=== PATIENT | male | born 1940 | race Caucasian/White ===

== ENCOUNTER → 2020-11-10 10:32 | Outpatient (BNVA) | payer MEDICARE, SELFPAY | PROVIDERS: PCP Nurse Practitioner Family; Visit Provider Urology | DX: N40.1 Benign prostatic hyperplasia with lower urinary tract symptoms (principal); R35.1 Nocturia; R33.9 Retention of urine, unspecified | CPT/HCPCS: 51798; 81002; 99212 ==

== ENCOUNTER 2020-12-24 07:22 | Outpatient (REF) | payer MEDICARE, SELFPAY ==
[2020-12-24 09:12] LABS: Alanine Aminotransferase 24 U/L (0-40); Albumin Level 4.2 g/dL (3.5-5.0); Alkaline Phosphatase 60 U/L (39-117); Anion Gap 11 (12-20); Aspartate Amino Transferase 22 U/L (5-37); Bilirubin Total 0.4 mg/dL (0.0-1.0); Blood Urea Nitrogen 41 mg/dL (9-16); Calcium 8.9 mg/dL (8.4-10.2); Carbon Dioxide 22 mmol/L (22-29); Chloride 111 mmol/L (96-108); Cholesterol 155 mg/dL; Estimated Glomerular Filt Rate 49; Glucose Fasting 105 mg/dL (60-99); HDL Cholesterol 36 mg/dL; LDL Cholesterol Calculated 102 mg/dl; Potassium 5.6 mmol/L (3.3-5.1); Sodium 138 mmol/L (135-145); Total Protein 7.1 g/dL (6.5-8.0); Triglycerides 86 mg/dL
[2020-12-24 09:16] LABS: Creatinine Urine 20.72 mg/dL; Microalbum/Creatinine Ratio Ur 120.6 ug/mg cr
[2020-12-24 09:22] LABS: Estimated Average Glucose 123 mg/dL; Hemoglobin A1c % 5.9 %
[2020-12-24 09:25] LABS: Ferritin 539 ng/mL (20-250); TSH reflex Free T4 2.49 uIU/mL (0.32-4.0)
== END 2020-12-24 07:23 | disposition home or self-care (01) ==
LOC: HO.LAB 07:22
PROVIDERS: PCP Nurse Practitioner Family; Visit Provider Nurse Practitioner Family
DX: I10 Essential (primary) hypertension (principal); R79.89 Other specified abnormal findings of blood chemistry; E11.9 Type 2 diabetes mellitus without complications
CPT/HCPCS: 36415; 80053; 80061; 82043; 82728; 83036; 84443

== ENCOUNTER 2020-12-28 09:19 | Outpatient (REF) | payer MEDICARE, SELFPAY ==
[2020-12-28 12:09] LABS: Anion Gap 13 (12-20); Carbon Dioxide 21 mmol/L (22-29); Chloride 109 mmol/L (96-108); Potassium 5.6 mmol/L (3.3-5.1); Sodium 137 mmol/L (135-145)
[2020-12-28 12:14] LABS: Ferritin 618 ng/mL (20-250)
== END 2020-12-28 09:20 | disposition home or self-care (01) ==
LOC: HO.HMGCLDS 09:19
PROVIDERS: PCP Nurse Practitioner Family; Visit Provider Nurse Practitioner Family
DX: R79.89 Other specified abnormal findings of blood chemistry (principal); E87.5 Hyperkalemia
CPT/HCPCS: 36415; 80051; 81256; 82728

== ENCOUNTER 2020-12-31 07:58 | Outpatient (REF) | payer MEDICARE, SELFPAY ==
[2020-12-31 11:44] LABS: Anion Gap 15 (12-20); Carbon Dioxide 21 mmol/L (22-29); Chloride 109 mmol/L (96-108); Potassium 4.3 mmol/L (3.3-5.1); Sodium 141 mmol/L (135-145)
== END 2020-12-31 07:59 | disposition home or self-care (01) ==
LOC: HO.HMGCLDS 07:58
PROVIDERS: PCP Nurse Practitioner Family; Visit Provider Nurse Practitioner Family
DX: E87.5 Hyperkalemia (principal)
CPT/HCPCS: 36415; 80051

== ENCOUNTER 2021-06-19 07:14 | Outpatient (REF) | payer MEDICARE, SELFPAY ==
[2021-06-19 08:00] LABS: Estimated Average Glucose 114 mg/dL; Hemoglobin A1c % 5.6 %
[2021-06-19 08:27] LABS: TSH reflex Free T4 2.84 uIU/mL (0.32-4.0)
[2021-06-19 08:29] LABS: Appearance Urine CLEAR; Color Urine YELLOW; Glucose Urine UA NEG (NEG); Leukocyte Esterase Urine 1+ (NEG); Nitrite Urine NEG (NEG); Specific Gravity - Urine <= 1.005 (1.005-1.025); UACC Culture Trigger YES; Urine Blood NEG (NEG); Urine Ketones NEG (NEG); Urine Protein NEG (NEG-TRACE)
[2021-06-19 08:41] LABS: Microalbum/Creatinine Ratio Ur 158.6 ug/mg cr
[2021-06-19 08:42] LABS: RBC Urine 0 /HPF (0); Squamous Epithelial Cell Urine TRACE /LPF
[2021-06-19 08:58] LABS: Alanine Aminotransferase 19 U/L (0-40); Albumin Level 4.3 g/dL (3.5-5.0); Alkaline Phosphatase 63 U/L (39-117); Anion Gap 10 (12-20); Aspartate Amino Transferase 21 U/L (5-37); Bilirubin Total 0.5 mg/dL (0.0-1.0); Blood Urea Nitrogen 26 mg/dL (9-16); Calcium 9.1 mg/dL (8.4-10.2); Carbon Dioxide 26 mmol/L (22-29); Chloride 110 mmol/L (96-108); Cholesterol 151 mg/dL; Estimated Glomerular Filt Rate 49; Glucose Fasting 110 mg/dL (60-99); HDL Cholesterol 37 mg/dL; LDL Cholesterol Calculated 97 mg/dl; Potassium 6.1 mmol/L (3.3-5.1); Sodium 140 mmol/L (135-145); Triglycerides 85 mg/dL
== END 2021-06-19 07:15 | disposition home or self-care (01) ==
LOC: HO.LAB 07:14
PROVIDERS: PCP Nurse Practitioner Family; Visit Provider Nurse Practitioner Family
DX: E11.9 Type 2 diabetes mellitus without complications (principal)
CPT/HCPCS: 36415; 80053; 80061; 81001; 82043; 83036; 84443; 87086

== ENCOUNTER 2021-06-23 06:41 | Outpatient (REF) | payer MEDICARE, SELFPAY ==
[2021-06-23 11:23] LABS: Appearance Urine CLEAR; Color Urine ORANGE; Glucose Urine UA NEG (NEG); Leukocyte Esterase Urine 3+ (NEG); Nitrite Urine NEG (NEG); Specific Gravity - Urine <= 1.005 (1.005-1.025); UACC Culture Trigger YES; Urine Blood TRACE (NEG); Urine Ketones NEG (NEG); Urine Protein NEG (NEG-TRACE)
[2021-06-23 11:36] LABS: WBC Urine 30-49 /HPF (0-4)
[2021-06-23 11:37] LABS: Mucus Urine TRACE /LPF; Squamous Epithelial Cell Urine TRACE /LPF
[2021-06-23 12:12] LABS: Anion Gap 11 (12-20); Carbon Dioxide 24 mmol/L (22-29); Chloride 105 mmol/L (96-108); Potassium 4.4 mmol/L (3.3-5.1); Sodium 136 mmol/L (135-145)
== END 2021-06-23 06:42 | disposition home or self-care (01) ==
LOC: HO.HMGCLDS 06:41
PROVIDERS: PCP Nurse Practitioner Family; Visit Provider Nurse Practitioner Family
DX: E87.5 Hyperkalemia (principal)
CPT/HCPCS: 36415; 80051; 81001; 87086

== ENCOUNTER 2021-11-09 07:19 | Outpatient (REF) | payer MEDICARE, SELFPAY ==
[2021-11-09 12:04] LABS: Prostate Specific Antigen 1.26 ng/mL (<0.05-4.0)
== END 2021-11-09 07:20 | disposition home or self-care (01) ==
LOC: HO.HMGCLDS 07:19
PROVIDERS: PCP Nurse Practitioner Family; Visit Provider Urology
DX: Z12.5 Encounter for screening for malignant neoplasm of prostate (principal); N40.1 Benign prostatic hyperplasia with lower urinary tract symptoms; N13.8 Other obstructive and reflux uropathy
CPT/HCPCS: 36415; 84153

== ENCOUNTER 2021-11-11 10:08 | Outpatient (AMB) | payer MEDICARE, SELFPAY ==
--- NOTE | 2021-11-11 10:18 | A.OFFVIS_ITS ---
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 They are a patient of Dr Ray. They are seen in the office today for the following urologic conditions. - lower urinary tract symptoms PVR 129 Good stream On finasteride 3 times a week He can stop doxazosin and see what happens 12 month follow-up Lower Urinary Tract Symptoms: Happy on current medication mix Continue with alpha-vern and 5 AR Review in 12 months Current visit is for further evaluation of, lower urinary tract symptoms, predominate irritative symptoms - doing well on 4mg doxazosin with finasteride - generic 3m $30. Current treatment includes 10/23 , alpha vern, 5-AR. Prostate Symptom Score 10/23 , Moderate (9-19), Bother 3 11/23 , Mild (0-8), Bother 2. Symptoms include 10/23 , incomplete emptying, weak stream, nocturia (>2), intermittency, and are progressing 11/24 less urge, less nocturia. Results from testing include cystoscopy Trilobar hypertrophy 10/24 large prostate median lobe renal/bladder us Yes 07/25 - 80gm prosatate, possible small bladder l esion date 09/25/2018 PVR 80 prostate size 50 Prior Prostate Score unknown. Prostate volume 30-50gm. Associated conditions CAD No CVA No diabetes No elevated PSA No erectile dysfunction No hematuria No renal insufficiency No urge incontinence No urinary retention No urinary tract infection No psychiatric diagnosis No Testing at next visit will include bladder scan. Treatment plan stay on [facility] medications [facility] Medical History Pyuria Incomplete emptying of bladder Benign prostatic hyperplasia with lower urinary tract symptoms Nocturia BPH (benign prostatic hyperplasia) Surgical History History of appendectomy History of back surgery Family History Sister Diabetes Breast cancer Lung cancer Social History Housing: Condominium Patient Tobacco Use Status: Never used Tobacco e-Cigarette/Vaping Use: Never Used service: Yes ([employer] ) Current occupational status: retired Cognitive needs: No Hearing needs: No Vision needs: No Review of Systems Const Denies chills and Denies fever(s) Card Reports no additional complaints and Denies syncope Resp Denies cough GI Denies abdominal pain and Denies heartburn Reports as per HPI and Denies change in libido Neuro Denies syncope Psych Denies change in libido Endo Denies change in libido Physical Exam Const General: cooperative, healthy appearing, comfortable and no acute distress Orientation/consciousness: patient oriented x3 HEENT Face and sinus: Yes normal facial exam Mouth: moist mucous membranes Neck Neck: Yes normal visual inspection, Yes full ROM and Yes trachea midline Chest Chest palpation & inspection: normal inspection of the chest Resp Effort & Inspection: normal respiratory effort, able to speak in complete sentences and no respiratory distress GI Inspection: Yes normal to inspection Back/Spine/Pelvis Cervical Spine: normal cervical lordosis Thoracic/Lumbar Spine: thoracic and lumbar spine normal to inspection Skin General skin exam: no rashes or lesions noted Neuro General: patient oriented x3, gait normal, tone normal and moves all extremities Extrem General: Yes normal to inspection and Yes capillary refill normal Office Procedures Post Void Residual Post Residual Void Post Void Residual (PVR): 129 08615-Fldd Void Residual by ultrasound Results AMB Urinalysis, Automated UA Leukoctes 70 Caro/uL Last Edit by Josemanuel Coats on 11/11/21 10:36 UA Nitrite Negative Last Edit by Josemanuel Coats on 11/11/21 10:36 UA Urobilinogen 0.2 mg/dL Last Edit by Josemanuel Coats on 11/11/21 10:36 UA Protein 15 mg/dL Last Edit by Josemanuel Coats on 11/11/21 10:36 UA pH 6.0 Last Edit by Josemanuel Coats on 11/11/21 10:36 UA Blood 0 Ludwig/uL Last Edit by Josemanuel Coats on 11/11/21 10:36 UA Specific [place] 1.015 Last Edit by Josemanuel Coats on 11/11/21 10:36 UA Ketone Negative Last Edit by Josemanuel Coats on 11/11/21 10:36 UA Bilirubin 0 mg/dL Last Edit by Josemanuel Coats on 11/11/21 10:36 UA Glucose 250 mg/dL Last Edit by Josemanuel Coats on 11/11/21 10:36 Results Reviewed Results Reviewed: Laboratory Last Values Urine pH (Auto) 6.0 11/11/21 10:19 Specific [place] (Auto) 1.015 11/11/21 10:19 Urine Protein (Auto) 15 mg/dL 11/11/21 10:19 Glucose (UA)(Auto) 250 mg/dL 11/11/21 10:19 Urine Ketones (Auto) Negative 11/11/21 10:19 Urine Blood (Auto) 0 Ludwig/uL 11/11/21 10:19 Urine Nitrite (Auto) Negative 11/11/21 10:19 Urine Bilirubin (Auto) 0 mg/dL 11/11/21 10:19 Urine Urobilinogen (Auto) 0.2 mg/dL 11/11/21 10:19 Leukocyte Esterase (Auto) 70 Caro/uL 11/11/21 10:19 Assessment & Plan Assessment & Plan (1) Incomplete emptying of bladder: Code(s): R33.9 - Retention of urine, unspecified (2) Nocturia: Code(s): R35.1 - Nocturia (3) Benign prostatic hyperplasia with lower urinary tract symptoms: Code(s): N40.1 - Benign prostatic hyperplasia with lower urinary tract symptoms Plan 12 month follow-up Orders: Orders AMB Urinalysis Automated 11/11/21 Z13.9 - Encounter for screening, unspecified AMB Post Void Residual by ultrasound 11/11/21 N40.1 - Benign prostatic hyperplasia with lower urinary tract symptoms Patient Instructions: Imaging studies, laboratory and physical exam results were discussed and reviewed in detail. No major barriers to patient understanding were identified. An opportunity to ask questions regarding the treatment plan was provided. All questions were answered. The patient expressed understanding and agreement with the above treatment plan. The patient is aware they should contact our office by phone for worsening of their current condition or the appearance of new urologic symptoms. Compliance is encouraged with any medications and followup testing that is ordered. It is a privilege to participate in the urologic care of your patient. If you have any questions or concerns regarding treatment for the above conditions, or other urologic issues, please do not hesitate to contact me. The office telephone contact is [phone]. This note is constructed using voice recognition software. While every effort has been made to ensure accuracy foreign car mechanic errors may have been included. Yours sincerely, Dr Selvin Rodriguez MD, [facility] - Urology Providers of Expert, Compassionate Care for the Genitourinary System Coding Level of Care Code Est Pt Level 4 (64044) Diagnoses Incomplete emptying of bladder R33.9 Nocturia R35.1 Benign prostatic hyperplasia with lower urinary tract symptoms N40.1 CPT Codes Post Residual Void - PVR CPT Code: 77506-Bmnr Void Residual by ultrasound ([id number])
== END 2021-11-11 11:47 | disposition home or self-care (01) ==
LOC: HO.HUSH 10:08
PROVIDERS: PCP Nurse Practitioner Family; Visit Provider Urology
DX: N40.1 Benign prostatic hyperplasia with lower urinary tract symptoms (principal); R33.9 Retention of urine, unspecified; R35.1 Nocturia
CPT/HCPCS: 99499

== ENCOUNTER → 2021-11-11 10:08 | Outpatient (BNVA) | payer MEDICARE, SELFPAY | PROVIDERS: PCP Nurse Practitioner Family; Visit Provider Urology | DX: Z13.89 Encounter for screening for other disorder (principal) | CPT/HCPCS: 51798 ==

== ENCOUNTER 2021-12-20 06:13 | Outpatient (REF) | payer MEDICARE, SELFPAY ==
[2021-12-20 11:48] LABS: Appearance Urine CLEAR; Color Urine YELLOW; Glucose Urine UA NEG (NEG); Leukocyte Esterase Urine 3+ (NEG); Nitrite Urine NEG (NEG); UACC Culture Trigger YES; Urine Blood TRACE (NEG); Urine Ketones NEG (NEG); Urine Protein NEG (NEG-TRACE)
[2021-12-20 11:51] LABS: Alanine Aminotransferase 17 U/L (0-40); Albumin Level 4.1 g/dL (3.5-5.0); Alkaline Phosphatase 59 U/L (39-117); Anion Gap 11 (12-20); Aspartate Amino Transferase 19 U/L (5-37); Bilirubin Total 0.6 mg/dL (0.0-1.0); Blood Urea Nitrogen 46 mg/dL (9-16); Calcium 8.9 mg/dL (8.4-10.2); Carbon Dioxide 20 mmol/L (22-29); Chloride 112 mmol/L (96-108); Cholesterol 128 mg/dL; Estimated Glomerular Filt Rate 39; Glucose Fasting 95 mg/dL (60-99); HDL Cholesterol 34 mg/dL; LDL Cholesterol Calculated 75 mg/dl; Potassium 4.9 mmol/L (3.3-5.1); Sodium 138 mmol/L (135-145); Triglycerides 96 mg/dL
[2021-12-20 12:16] LABS: TSH reflex Free T4 3.82 uIU/mL (0.32-4.0)
[2021-12-20 12:29] LABS: Squamous Epithelial Cell Urine TRACE /LPF
[2021-12-20 12:31] LABS: Bacteria Urine TRACE /LPF; RBC Urine 0 /HPF (0); WBC Clumps Urine NOTED
== END 2021-12-20 06:14 | disposition home or self-care (01) ==
LOC: HO.HMGCLDS 06:13
PROVIDERS: Visit Provider Nurse Practitioner Family
DX: E11.9 Type 2 diabetes mellitus without complications (principal); E87.5 Hyperkalemia; R31.29 Other microscopic hematuria
CPT/HCPCS: 36415; 80053; 80061; 81001; 81003; 84443; 87086

== ENCOUNTER 2022-07-02 06:35 | Outpatient (REF) | payer MEDICARE, SELFPAY ==
[2022-07-02 11:16] LABS: MANUAL DIFF FLAG NO
[2022-07-02 11:19] LABS: Basophils Absolute Auto 0.1 X10*3/uL (0.0-0.2); Basophils Percent Auto 0.9 % (0-2); Eosinophils Absolute Auto 0.4 X10*3/uL (0.0-0.4); Eosinophils Percent Auto 5.8 % (0-4); Hematocrit 39.8 % (42.0-52.0); Hemoglobin 13.2 g/dl (14.0-18.0); Imm Gran Abs Auto 0.03 X10*3/uL (0.00-0.03); Imm Gran Pct Auto 0.4 % (0.0-0.4); Lymphocytes Absolute Auto 1.3 X10*3/uL (1.2-4.9); Lymphocytes Percent Auto 18.7 % (20-40); Mean Corpuscular HGB Conc 33.2 g/dl (31.0-36.0); Mean Corpuscular Hemoglobin 31.2 pg (27.0-33.0); Mean Corpuscular Volume 94.1 fL (80.0-98.0); Mean Platelet Volume 10.2 fL (9.4-12.4); Monocytes Absolute Auto 0.7 X10*3/uL (0.1-1.2); Monocytes Percent Auto 10.9 % (2-11); Neutrophils Absolute Auto 4.3 x10*3/uL (2.0-8.3); Neutrophils Percent Auto 63.3 % (45-73); Platelet Count 221 X10*3/uL (160-400); Red Blood Count 4.23 X10*6/uL (4.60-5.80); Red Cell Distribution Width 12.6 % (11.0-16.0); White Blood Count 6.8 X10*3/uL (4.8-10.8)
[2022-07-02 11:23] LABS: Appearance Urine Clear; Color Urine Yellow; Glucose Urine UA Negative (Negative); Leukocyte Esterase Urine Moderate (2+) (Negative); Nitrite Urine Negative (Negative); PH 5.5 (5.0-9.0); UMIC TRIGGER UACC YES; Urine Blood Trace (Negative); Urine Ketones Negative (Negative); Urine Protein 100 (2+) mg/dL (Neg-Trace)
[2022-07-02 11:26] LABS: Bacteria Urine None Seen (None Seen); Hyaline Casts Urine 0-2 /LPF (0-2); RBC Urine 0-2 /HPF (0-2); Squamous Epithelial Cell Urine 0-2 /HPF (0-2); UACC Culture Trigger YES
[2022-07-02 11:59] LABS: Alanine Aminotransferase 17 U/L (0-40); Albumin Level 4.2 g/dL (3.5-5.0); Alkaline Phosphatase 63 U/L (39-117); Anion Gap 13 (12-20); Aspartate Amino Transferase 24 U/L (5-37); Bilirubin Total 0.6 mg/dL (0.0-1.0); Blood Urea Nitrogen 27 mg/dL (9-16); Calcium 9.4 mg/dL (8.4-10.2); Carbon Dioxide 25 mmol/L (22-29); Chloride 107 mmol/L (96-108); Cholesterol 162 mg/dL; Estimated Glomerular Filt Rate 48; Glucose Fasting 111 mg/dL (60-99); HDL Cholesterol 38 mg/dL; LDL Cholesterol Calculated 107 mg/dl; Potassium 5.1 mmol/L (3.3-5.1); Sodium 140 mmol/L (135-145); TSH reflex Free T4 2.63 uIU/mL (0.32-4.0); Total Protein 7.2 g/dL (6.5-8.0); Triglycerides 89 mg/dL
== END 2022-07-02 06:36 | disposition home or self-care (01) ==
LOC: HO.HMGCLDS 06:35
PROVIDERS: PCP Nurse Practitioner Family; Visit Provider Nurse Practitioner Family
DX: I10 Essential (primary) hypertension (principal)
CPT/HCPCS: 36415; 80053; 80061; 81001; 84443; 85025; 87086

== ENCOUNTER 2022-11-03 06:03 | Outpatient (REF) | payer MEDICARE, SELFPAY ==
[2022-11-03 12:08] LABS: Prostate Specific Antigen 1.99 ng/mL (<0.05-4.0)
== END 2022-11-03 06:04 | disposition home or self-care (01) ==
LOC: HO.HMGCLDS 06:03
PROVIDERS: PCP Nurse Practitioner Family; Visit Provider Urology
DX: Z12.5 Encounter for screening for malignant neoplasm of prostate (principal); N40.1 Benign prostatic hyperplasia with lower urinary tract symptoms
CPT/HCPCS: 36415; 84153

== ENCOUNTER → 2022-11-11 08:41 | Outpatient (BNVA) | payer MEDICARE, SELFPAY | PROVIDERS: PCP Nurse Practitioner Family; Visit Provider Urology | DX: N40.1 Benign prostatic hyperplasia with lower urinary tract symptoms (principal); R39.15 Urgency of urination | CPT/HCPCS: 51798; 99212 ==

== ENCOUNTER 2023-05-01 09:07 | Outpatient (AMB) | payer MEDICARE, SELFPAY ==
--- NOTE | 2023-05-01 09:37 | A.OFFPC_ITS ---
Vital Signs 05/01/23 09:39 Height 5 ft 3 in Weight 173 lb BMI 30.6 BP 190/90 H Blood Pressure Location Rt brachial Position Sitting Pulse 72 Pulse Source Pulse Oximeter Pulse Oximetry (%) 98 Oxygen Delivery Method Room Air Intake Visit Reasons: High BP/Headache Intake Note: left arm this morning 213/105 right arm this morning 160/95 slught headache, denies blurred vision Allergies No Known Allergies Allergy (Verified 05/01/23 09:40) Medication List - Last Reconciled 05/01/23 by XENIA Colon acetaminophen 500 mg PO Q6H PRN amlodipine 2.5 mg PO DAILY atenolol 50 mg PO DAILY 90 days finasteride 5 mg PO DAILY 30 days lisinopril 40 mg PO DAILY 90 days loratadine (Claritin) 10 mg PO DAILY PRN Tobacco use date assessed: 12/12/22 HPI High BP/Headache HPI Details HTN: Blood pressure is elevated, managed with atenolol 25mg and lisinopril 40mg. Pt reports a recent blood pressure reading at home of 213/105, Heart rate in the 80s. Will increase atenolol from 25mg to 50mg and add amlodipine 2.5mg. Denies chest pain, shortness of breath, dizziness, and blurred vision, does report headache. Will have pt follow up with nurse visits for BP checks, will have him bring in his home monitor. No changes noted on EKG. Explained to him/daughter to watch his HR, call me with any dizziness, and to continue taking his BP once a day, writing down values. [facility] Medical History Pyuria Incomplete emptying of bladder Benign prostatic hyperplasia with lower urinary tract symptoms Nocturia BPH (benign prostatic hyperplasia) Surgical History History of appendectomy History of back surgery Family History Sister Diabetes Breast cancer Lung cancer [facility] Tobacco Use Status: Never used Tobacco e-Cigarette/Vaping Use: Never Used service: Yes ( [employer] ) Current occupational status: retired Cognitive needs: No Hearing needs: No Vision needs: No Questionnaire Thrive Questionnaire Date Thrive assessed: 07/04/22 TIFFANIE-7 AMB Questionnaire TIFFANIE-7 Date TIFFANIE - 7 assessed: 07/04/22 Source: Developed by Drs. Manuel Agustin, Samia Kent, Ashvin Godoy and colleagues, with an educational gato from [email or web address]. Review of Systems Const Reports as per HPI Physical exam (Primary Care) Vital Signs: Last Vital Signs Pulse 72 05/01/23 09:39 BP 190/90 H 05/01/23 09:39 Pulse Ox 98 05/01/23 09:39 Oxygen Delivery Method Room Air 05/01/23 09:39 BMI result Body Mass Index 30.6 Tobacco/Smoking Status: Tobacco use Status Tobacco use date assessed 12/12/22 05/01/23 09:38 Patient Tobacco Use Status Never used Tobacco 05/01/23 09:38 e-Cigarette/Vaping Use Never Used 05/01/23 09:38 Thrive Assessment: Date of Thrive Assessment Date Thrive assessed 07/04/22 05/01/23 09:38 Const General: cooperative Orientation/consciousness: patient oriented x3 Resp Effort & Inspection: normal respiratory effort Auscultation: clear to auscultation bilaterally Cardio Rate: regular rate Rhythm: regular rhythm Heart sounds: S1 normal heart sound present and S2 normal heart sound present Neuro General: patient oriented x3 Extrem Right lower extremity: no edema Left lower extremity: no edema Psych Appearance: grossly normal Mental Status: mental status grossly normal Speech and movement: Normal speech and movement present Affect: normal affect Attitude: cooperative Thought process: Normal thought process present Thought content: Normal thought content present Insight: Good insight present (Psych) Judgement: Good judgement present (Psych) Assessment and Plan Assessment & Plan (1) HTN (hypertension): Code(s): I10 - Essential (primary) hypertension Plan: Atenolol increased, amlodipine added Plan The patient agreed to the use of a medical review coordinator for this encounter. Scribed for XENIA Mcclendon by Shandra Diaz medical review coordinator, on 05/01/2023 at 09:50 EST. Orders: Orders AMB EKG-In Office Today I10 - Essential (primary) hypertension Medications: New amlodipine 2.5 mg PO DAILY 30 tabs 3RF Changed From atenolol 25 mg PO DAILY 90 days 90 tabs 1RF To atenolol 50 mg PO DAILY 90 tabs 1RF 90 days Coding Level of Care Code Est Pt Level 3 (29605) Diagnoses HTN (hypertension) I10
[2023-05-01 09:39] VITALS: BP 190/90; PULSE 72; O2SAT 98; BMI 30.6
== END 2023-05-01 10:16 | disposition home or self-care (01) ==
LOC: HO.HMGC 09:07
PROVIDERS: PCP Nurse Practitioner Family; Visit Provider Nurse Practitioner Family
DX: I10 Essential (primary) hypertension (principal)
CPT/HCPCS: 99213

== ENCOUNTER 2023-05-01 10:16 | Outpatient (REF) | payer MEDICARE, SELFPAY ==
[2023-05-01 13:06] LABS: MANUAL DIFF FLAG NO
[2023-05-01 13:13] LABS: Appearance Urine Clear; Color Urine Yellow; Glucose Urine UA Negative (Negative); Leukocyte Esterase Urine Small (1+) (Negative); Nitrite Urine Negative (Negative); PH 5.5 (5.0-9.0); UMIC TRIGGER UACC YES; Urine Blood Trace (Negative); Urine Ketones Negative (Negative); Urine Protein 100 (2+) mg/dL (Neg-Trace)
[2023-05-01 13:16] LABS: Basophils Percent Auto 0.5 % (0-2); Eosinophils Absolute Auto 0.2 X10*3/uL (0.0-0.4); Eosinophils Percent Auto 3.1 % (0-4); Hemoglobin 13.2 g/dl (14.0-18.0); Imm Gran Abs Auto 0.06 X10*3/uL (0.00-0.03); Imm Gran Pct Auto 0.8 % (0.0-0.4); Lymphocytes Absolute Auto 0.8 X10*3/uL (1.2-4.9); Lymphocytes Percent Auto 10.5 % (20-40); Mean Corpuscular Hemoglobin 31.3 pg (27.0-33.0); Mean Corpuscular Volume 94.8 fL (80.0-98.0); Monocytes Absolute Auto 0.6 X10*3/uL (0.1-1.2); Monocytes Percent Auto 8.3 % (2-11); Neutrophils Absolute Auto 5.9 x10*3/uL (2.0-8.3); Neutrophils Percent Auto 76.8 % (45-73); Platelet Count 254 X10*3/uL (160-400); Red Blood Count 4.22 X10*6/uL (4.60-5.80); Red Cell Distribution Width 12.5 % (11.0-16.0); White Blood Count 7.7 X10*3/uL (4.8-10.8)
[2023-05-01 13:20] LABS: Bacteria Urine None Seen (None Seen); Hyaline Casts Urine 0-2 /LPF (0-2); RBC Urine 0-2 /HPF (0-2); Squamous Epithelial Cell Urine 0-2 /HPF (0-2); UACC Culture Trigger YES
[2023-05-01 13:23] LABS: Estimated Average Glucose 128 mg/dL; Hemoglobin A1c % 6.1 % (<6.0)
[2023-05-01 13:39] LABS: Alanine Aminotransferase 15 U/L (0-40); Albumin Level 4.3 g/dL (3.5-5.0); Alkaline Phosphatase 65 U/L (39-117); Anion Gap 14 (12-20); Aspartate Amino Transferase 22 U/L (5-37); Bilirubin Total 0.6 mg/dL (0.0-1.0); Blood Urea Nitrogen 23 mg/dL (9-16); Calcium 9.2 mg/dL (8.4-10.2); Carbon Dioxide 23 mmol/L (22-29); Chloride 108 mmol/L (96-108); Cholesterol 165 mg/dL (<200); Estimated Glomerular Filt Rate 57; Glucose Fasting 134 mg/dL (60-99); HDL Cholesterol 39 mg/dL (>40); LDL Cholesterol Calculated 109 mg/dL (<100); Potassium 4.5 mmol/L (3.3-5.1); Sodium 140 mmol/L (135-145); Total Protein 7.7 g/dL (6.5-8.0); Triglycerides 85 mg/dL (<150)
[2023-05-01 13:46] LABS: TSH reflex Free T4 2.73 uIU/mL (0.32-4.0)
[2023-05-01 14:07] LABS: Creatinine Urine 31.79 mg/dL
== END 2023-05-01 10:17 | disposition home or self-care (01) ==
LOC: HO.HMGCLDS 10:16
PROVIDERS: PCP Nurse Practitioner Family; Visit Provider Nurse Practitioner Family
DX: E11.9 Type 2 diabetes mellitus without complications (principal); I10 Essential (primary) hypertension; R82.90 Unspecified abnormal findings in urine
CPT/HCPCS: 36415; 80053; 80061; 81001; 82043; 82570; 83036; 84443; 85025; 87086

== ENCOUNTER 2023-05-31 08:05 | Outpatient (REF) | payer MEDICARE, SELFPAY ==
[2023-05-31 11:38] LABS: Appearance Urine Clear; Color Urine Yellow; Glucose Urine UA Negative (Negative); Leukocyte Esterase Urine Moderate (2+) (Negative); Nitrite Urine Negative (Negative); PH 5.5 (5.0-9.0); UMIC TRIGGER UACC YES; Urine Blood Trace (Negative); Urine Ketones Negative (Negative); Urine Protein 100 (2+) mg/dL (Neg-Trace)
[2023-05-31 11:45] LABS: Bacteria Urine None Seen (None Seen); Hyaline Casts Urine 0-2 /LPF (0-2); RBC Urine 0-2 /HPF (0-2); Squamous Epithelial Cell Urine 0-2 /HPF (0-2); UACC Culture Trigger YES; WBC Urine 21-50 /HPF (0-5)
== END 2023-05-31 08:06 | disposition home or self-care (01) ==
LOC: HO.HMGCLDS 08:05
PROVIDERS: PCP Nurse Practitioner Family; Visit Provider Nurse Practitioner Family
DX: E11.9 Type 2 diabetes mellitus without complications (principal); I10 Essential (primary) hypertension; R82.90 Unspecified abnormal findings in urine
CPT/HCPCS: 81001; 87086

== ENCOUNTER 2023-10-24 08:36 | Outpatient (AMB) | payer MEDICARE, SELFPAY ==
[2023-10-24 08:49] VITALS: BP 152/84; PULSE 65; O2SAT 98; BMI 29.8
--- NOTE | 2023-10-24 08:49 | MHC.PC.OV ---
Vital Signs 10/24/23 08:49 10/24/23 08:53 Height 5 ft 3 in Weight 168 lb BMI 29.8 BP 152/84 H 150/84 H Blood Pressure Location Lt brachial Rt brachial Position Sitting Sitting Pulse 65 Pulse Source Pulse Oximeter Pulse Oximetry (%) 98 Oxygen Delivery Method Room Air Intake Visit Reasons: Annual Physical Intake Note: pt is here for annual exam Pillow Cleaner Required: No Accompanied by: Self / Same As Patient Allergies No Known Allergies Allergy (Verified 10/24/23 09:00) Medication List - Last Reconciled 10/24/23 by XENIA Colon acetaminophen 500 mg PO Q6H PRN amlodipine 10 mg PO DAILY 90 days atenolol 50 mg PO DAILY 90 days finasteride 5 mg PO DAILY 30 days lisinopril 40 mg PO DAILY 90 days loratadine (Claritin) 10 mg PO DAILY PRN Tobacco use date assessed: 10/24/23 Fall risk assessment: No Falls in past year Last assessed Fall Risk: 10/24/23 Dental Screening Dental Screen Date: 10/24/23 Did you have a dental visit in the last 12 months?: Yes Did you have a dental problem in the last 6 months where you did not have access to dental care?: No Was dental information given to patient?: Patient has dentist HPI Annual Physical HPI Details Pt is here for a PE. Due for PSA, pt sees urology. Pt is a diabetic, on an BRIAN. A1C in office today is 6.1. Microalbumin is up to date. Denies polyuria, polydipsia, and neuropathy. Pt denies any signs and symptoms of hypoglycemia and does know how to correct it. Eye exam is up to date. Pt sees a shooter's helper. HTN: Blood pressure is managed with amlodipine 10mg, atenolol 50mg, and lisinopril 40mg. Pt's blood pressure is elevated in office and at home (in the 140s systolically). I wanted to start another BP, pt refused. [facility] Medical History Pyuria Incomplete emptying of bladder Benign prostatic hyperplasia with lower urinary tract symptoms Nocturia BPH (benign prostatic hyperplasia) Surgical History History of appendectomy History of back surgery Family History Sister Diabetes Breast cancer Lung cancer Social History Housing: Condominium Patient Tobacco Use Status: Never used Tobacco e-Cigarette/Vaping Use: Never Used service: Yes ( [employer] ) Current occupational status: retired Cognitive needs: No Hearing needs: No Vision needs: No Questionnaire PHQ-9 Over the last 2 weeks, how often have you been bothered by any of the following problems? 1. Little interest or pleasure in doing things: not at all 2. Feeling down, depressed, or hopeless: not at all 3. Trouble falling or staying asleep, or sleeping too much: not at all 4. Feeling tired or having little energy: not at all 5. Poor appetite or overeating: not at all 6. Feeling bad about yourself - or that you are a failure or have let yourself or your family down: not at all 7. Trouble concentrating on things, such as reading the newspaper or watching television: not at all 8. Moving or speaking so slowly that other people could have noticed. Or the opposite - being so fidgety or restless that you have been moving around a lot more than usual: not at all 9. Thoughts that you would be better off or of hurting yourself in some way: not at all Total score: 0 Depression Screening Interpretation: Negative Depression Screening Done: Yes 88882 - PHQ-9 Billing: Yes Source: Developed by Drs. Manuel Agustin, Samia Kent, Ashvin Godoy and colleagues, with an educational gato from [employer]. Thrive Questionnaire Date Thrive assessed: 10/24/23 I am a: Patient What is your living situation today?: I have a steady place to live Within the past 12 months, did the food you bought not last and you didn't have the money to get more?: Never true Within the past 12 months, did you worry whether your food would run out before you got money to buy more?: Never true Do you have trouble paying for medicines?: No Do you have trouble getting transportation to medical appointments?: No Do you have trouble paying your heating and electricity bill?: No Do you have trouble taking care of your child, family member or friend?: No Do you have trouble with day-to-day activities such as bathing, preparing meals, shopping, managing finances, etc.?: No Are you currently unemployed and looking for a job?: No Are you interested in more education?: No Please select the resources that you would like help with: None Currently or been in a relationship where the following occur: no concerns reported THRIVE Score: 0 AUDIT C Alcohol Use Questionnaire (AUDIT-C) 1. How often do you have a drink containing alcohol?: Never Total Score: 0 Score Reviewed/Action Taken: Yes TIFFANIE-7 AMB Questionnaire TIFFANIE-7 Date TIFFANIE - 7 assessed: 10/24/23 Feeling nervous, anxious, or on edge: 0 = Not at all Not being able to stop or control worryin = Not at all Worrying too much about different things: 0 = Not at all Trouble relaxin = Not at all Being so restless that it is hard to sit still: 0 = Not at all Becoming easily annoyed or irritable: 0 = Not at all Feeling afraid as if something awful might happen: 0 = Not at all Total TIFFANIE-7 score (0-4 normal; 5-9 mild; 10-14 moderate; 15-21 severe): 0 Source: Developed by Drs. Manuel Agustin, Samia Kent, Ashvin Godoy and colleagues, with an educational gato from [employer]. TIFFANIE-7 Assessment Billing TIFFANIE-7 Assessment Tool: TIFFANIE-7 Assessment 85688 Review of Systems Const Denies chills and Denies fever(s) Eyes Denies blurry vision ENT Denies vertigo, Denies dizziness and Denies sore throat Card Denies chest pain at rest, Denies chest pain with activity, Denies diaphoresis, Denies dyspnea and Denies dyspnea on exertion Resp Denies cough, Denies dyspnea, Denies dyspnea on exertion and Denies wheezing GI Denies abdominal pain, Denies melena, Denies hematochezia, Denies constipation, Denies diarrhea and Denies loose stools Denies hematuria Musc Denies numbness and Denies tingling Skin/Breast Denies lesions Neuro Denies vertigo, Denies dizziness, Denies numbness and Denies tingling Psych Denies anxiety, Denies depression, Denies homicidal ideation, Denies suicidal ideation and Denies other (substance abuse) Aller/Immun Denies wheezing Physical exam (Primary Care) Vital Signs: Last Vital Signs Pulse 65 10/24/23 08:49 BP 150/84 H 10/24/23 08:53 Pulse Ox 98 10/24/23 08:49 Oxygen Delivery Method Room Air 10/24/23 08:49 BMI result Body Mass Index 29.8 Tobacco/Smoking Status: Tobacco use Status Tobacco use date assessed 10/24/23 10/24/23 08:53 Patient Tobacco Use Status Never used Tobacco 10/24/23 08:53 e-Cigarette/Vaping Use Never Used 10/24/23 08:53 PHQ-9: PHQ-9 Score PHQ-9: Total score 0 10/24/23 08:58 Depression Screening Interpretation: Negative Thrive Assessment: Date of Thrive Assessment Date Thrive assessed 10/24/23 10/24/23 08:56 Currently or been in a relationship where the following occur: no concerns reported Const General: cooperative Nutritional Appearance: well nourished Orientation/consciousness: patient oriented x3 HENMT Head: Yes normal to inspection, Yes normocephalic and Yes atraumatic Ears: TM's normal bilaterally Eyes General: appearance normal, both eyes and all related structures Alignment and Position: alignment normal and position normal Neck Neck: Yes normal visual inspection and Yes no lymphadenopathy Thyroid: Thyroid normal Resp Effort & Inspection: normal respiratory effort Auscultation: clear to auscultation bilaterally Cardio Rate: regular rate Rhythm: regular rhythm Heart sounds: S1 normal heart sound present, S2 normal heart sound present and no murmurs GI Palpation (GI): Soft to palpation and nontender Auscultation: normal bowel sounds Skin Rashes: no rashes Neuro General: patient oriented x3, moves all extremities, no focal motor deficits and deep tendon reflexes 2+ bilaterally Romberg Test: Negative Extrem Other: refused foot exam Psych Appearance: grossly normal Mental Status: mental status grossly normal Speech and movement: Normal speech and movement present Affect: normal affect Attitude: cooperative Thought process: Normal thought process present Thought content: Normal thought content present Insight: Good insight present (Psych) Judgement: Good judgement present (Psych) Assessment and Plan Assessment & Plan (1) Diabetes: Code(s): E11.9 - Type 2 diabetes mellitus without complications Plan: Labs ordered, stable (2) Physical exam: Code(s): Z00.00 - Encounter for general adult medical examination without abnormal findings Plan: Labs ordered (3) HTN (hypertension): Code(s): I10 - Essential (primary) hypertension Plan: refused adding another medication Plan The patient agreed to the use of a medical supply technician for this encounter. Scribed for BIJAN Mcclendon-PAUL by Shandra Diaz medical supply technician, on 10/24/2023 at 09:00 EST. Orders: Orders Comprehensive [place]. Panel Fast Today E11.9 - Type 2 diabetes mellitus without complications, Z00.00 - Encounter for general adult medical examination without abnormal findings UA CC w/rflx Micro + Cult Today E11.9 - Type 2 diabetes mellitus without complications, Z00.00 - Encounter for general adult medical examination without abnormal findings Complete Blood Count Auto Diff Today E11.9 - Type 2 diabetes mellitus without complications, Z00.00 - Encounter for general adult medical examination without abnormal findings TSH reflex Free T4 Today E11.9 - Type 2 diabetes mellitus without complications, Z00.00 - Encounter for general adult medical examination without abnormal findings Lipid Panel Today E11.9 - Type 2 diabetes mellitus without complications, Z00.00 - Encounter for general adult medical examination without abnormal findings Coding Level of Care Code Est Pt Prev Care >65y(84129) Diagnoses Diabetes E11.9 Physical exam Z00.00 HTN (hypertension) I10 Additional Codes TIFFANIE-7 Assessment Billing - TIFFANIE-7 Assessment Tool: TIFFANIE-7 Assessment 18243 ([id number])
[2023-10-24 08:53] VITALS: BP 150/84
== END 2023-10-24 09:19 | disposition home or self-care (01) ==
PROVIDERS: PCP Nurse Practitioner Family; Visit Provider Nurse Practitioner Family
DX: E11.9 Type 2 diabetes mellitus without complications (principal); Z00.00 Encounter for general adult medical examination without abnormal findings; I10 Essential (primary) hypertension
CPT/HCPCS: 99397

== ENCOUNTER 2023-11-07 06:05 | Outpatient (REF) | payer MEDICARE, SELFPAY ==
[2023-11-07 07:59] LABS: PSA,Total (Free>4and<10) 1.32 ng/mL (0.00-4.00)
== END 2023-11-07 06:06 | disposition home or self-care (01) ==
LOC: HO.LAB 06:05
PROVIDERS: PCP Nurse Practitioner Family; Visit Provider Urology
DX: N40.1 Benign prostatic hyperplasia with lower urinary tract symptoms (principal); Z12.5 Encounter for screening for malignant neoplasm of prostate
CPT/HCPCS: 36415; 84153

== ENCOUNTER 2023-11-14 09:09 | Outpatient (AMB) | payer MEDICARE, SELFPAY ==
--- NOTE | 2023-11-14 09:14 | MHC.OFFVIS ---
Intake Intake Visit Reasons: 1Y PVR/PSA(set)Confirmed Intake Note: Patient is Present for Follow Up Urology Medication: Finasteride, Antibiotic Allergies: None Blood Thinners:None [facility]acy: [facility] PVR: 0ml Allergies No Known Allergies Allergy (Verified 11/14/23 09:15) Medication List - Last Reconciled 11/14/23 by Selvin Rodriguez MD acetaminophen 500 mg PO Q6H PRN amlodipine 10 mg PO DAILY 90 days atenolol 50 mg PO DAILY 90 days finasteride 5 mg PO DAILY 90 days lisinopril 40 mg PO DAILY 90 days loratadine (Claritin) 10 mg PO DAILY PRN HPI HPI Comments History of Present Illness Details Raad HUYNH is a very pleasant male. They are a patient of Dr Ray. They are seen in the office today for the following urologic conditions. - lower urinary tract symptoms Yearly follow-up Doing well with single agent finasteride 3 times week Effective emptying Very happy since sleeping through night 5-6 hours PVR 0 cc Good stream On finasteride 3 times a week Does have some urinary urgency PSA 11/28 1.3 SUMMER 2+ Lower Urinary Tract Symptoms: Happy on current medication mix Continue with alpha-vern and 5 AR Review in 12 months Current visit is for further evaluation of, lower urinary tract symptoms, predominate irritative symptoms Current treatment includes 10/23 , alpha vern, 5-AR. Prostate Symptom Score 3 , Moderate (9-19), Bother 3 11/23 , Mild (0-8), Bother 2. Symptoms include 10/23 , incomplete emptying, weak stream, nocturia (>2), intermittency, and are progressing 11/24 less urge, less nocturia. Results from testing include cystoscopy Trilobar hypertrophy 10/24 large prostate median lobe renal/bladder us Yes 07/25 - 80gm prosatate, possible small bladder lesion date 09/25/2018 PVR 80 prostate size 50 Prior Prostate Score unknown. Prostate volume 30-50gm. Testing at next visit will include bladder scan. Treatment plan stay on finasteride [facility] Medical History Pyuria Incomplete emptying of bladder Benign prostatic hyperplasia with lower urinary tract symptoms Nocturia BPH (benign prostatic hyperplasia) Surgical History History of appendectomy History of back surgery Family History Sister Diabetes Breast cancer Lung cancer Social History Housing: Condominium Patient Tobacco Use Status: Never used Tobacco e-Cigarette/Vaping Use: Never Used service: Yes ( [employer] ) Current occupational status: retired Cognitive needs: No Hearing needs: No Vision needs: No Review of Systems Const Denies chills and Denies fever(s) Card Reports no additional complaints and Denies syncope Resp Denies cough GI Denies abdominal pain and Denies heartburn Reports as per HPI and Denies change in libido Neuro Denies syncope Psych Denies change in libido Endo Denies change in libido Physical Exam Const General: cooperative, healthy appearing, comfortable and no acute distress Orientation/consciousness: patient oriented x3 HEENT Face and sinus: Yes normal facial exam Mouth: moist mucous membranes Neck Neck: Yes normal visual inspection, Yes full ROM and Yes trachea midline Chest Chest palpation & inspection: normal inspection of the chest Resp Effort & Inspection: normal respiratory effort, able to speak in complete sentences and no respiratory distress GI Inspection: Yes normal to inspection Back/Spine/Pelvis Cervical Spine: normal cervical lordosis Thoracic/Lumbar Spine: thoracic and lumbar spine normal to inspection Skin General skin exam: no rashes or lesions noted Neuro General: patient oriented x3, gait normal, tone normal and moves all extremities Extrem General: Yes normal to inspection and Yes capillary refill normal Office Procedures Post Void Residual Post Residual Void Post Void Residual (PVR): 0 [id number] Void Residual by ultrasound Assessment & Plan Assessment & Plan (1) Nocturia: Code(s): R35.1 - Nocturia (2) Benign prostatic hyperplasia with lower urinary tract symptoms: Code(s): N40.1 - Benign prostatic hyperplasia with lower urinary tract symptoms Plan Twelve month follow-up Continue finasteride 3 times a week Orders: Orders PSA,Total (Free>4and<10) 11/07/23 N40.1 - Benign prostatic hyperplasia with lower urinary tract symptoms AMB Post Void Residual by ultrasound Today R33.9 - Retention of urine, unspecified Medications: Changed From finasteride Take medication Monday, Monday, Pj 5 mg PO DAILY 30 days 30 tabs 6RF N40.1 - Benign prostatic hyperplasia with lower urinary tract symptoms To finasteride Take medication Monday, Monday, Monday 5 mg PO DAILY 90 days 90 tabs 1RF N40.1 - Benign prostatic hyperplasia with lower urinary tract symptoms Refilled finasteride Take medication Monday, Monday, Monday 5 mg PO DAILY 90 days 90 tabs 1RF N40.1 - Benign prostatic hyperplasia with lower urinary tract symptoms Patient Instructions: Imaging studies, laboratory and physical exam results were discussed and reviewed in detail. No major barriers to patient understanding were identified. An opportunity to ask questions regarding the treatment plan was provided. All questions were answered. The patient expressed understanding and agreement with the above treatment plan. The patient is aware they should contact our office by phone for worsening of their current condition or the appearance of new urologic symptoms. Compliance is encouraged with any medications and followup testing that is ordered. It is a privilege to participate in the urologic care of your patient. If you have any questions or concerns regarding treatment for the above conditions, or other urologic issues, please do not hesitate to contact me. The office telephone contact is [phone]. This note is constructed using voice recognition software. While every effort has been made to ensure accuracy computer information science professor errors may have been included. Yours sincerely, Dr Selvin Rodriguez MD, [facility] - Urology Providers of Expert, Compassionate Care for the Genitourinary System Coding Level of Care Code Est Pt Level 4 (15549) Diagnoses Nocturia R35.1 Benign prostatic hyperplasia with lower urinary tract symptoms N40.1 CPT Codes Post Residual Void - PVR CPT Code: 07069-Okyd Void Residual by ultrasound ([id number])
== END 2023-11-14 09:54 | disposition home or self-care (01) ==
PROVIDERS: Visit Provider Urology
DX: N40.1 Benign prostatic hyperplasia with lower urinary tract symptoms (principal); R35.1 Nocturia
CPT/HCPCS: 99213

== ENCOUNTER → 2023-11-14 09:09 | Outpatient (BNVA) | payer MEDICARE, SELFPAY | PROVIDERS: Visit Provider Urology | DX: N40.1 Benign prostatic hyperplasia with lower urinary tract symptoms (principal); R35.1 Nocturia | CPT/HCPCS: 51798; 99212 ==

== ENCOUNTER 2023-11-21 06:01 | Outpatient (REF) | payer MEDICARE, SELFPAY ==
[2023-11-21 10:18] LABS: Appearance Urine Clear; Color Urine Yellow; Glucose Urine UA Negative (Negative); Leukocyte Esterase Urine Small (1+) (Negative); Nitrite Urine Negative (Negative); PH 5.5 (5.0-9.0); UMIC TRIGGER UACC YES; Urine Blood Trace (Negative); Urine Ketones Negative (Negative); Urine Protein 100 (2+) mg/dL (Neg-Trace)
[2023-11-21 10:21] LABS: MANUAL DIFF FLAG NO
[2023-11-21 10:22] LABS: Bacteria Urine None Seen (None Seen); Hyaline Casts Urine 0-2 /LPF (0-2); RBC Urine 0-2 /HPF (0-2); Squamous Epithelial Cell Urine 0-2 /HPF (0-2); UACC Culture Trigger YES; WBC Urine 21-50 /HPF (0-5)
[2023-11-21 10:34] LABS: Basophils Absolute Auto 0.1 X10*3/uL (0.0-0.2); Basophils Percent Auto 0.7 % (0-2); Eosinophils Absolute Auto 0.4 X10*3/uL (0.0-0.4); Eosinophils Percent Auto 5.3 % (0-4); Hematocrit 34.6 % (42.0-52.0); Hemoglobin 11.6 g/dl (14.0-18.0); Imm Gran Abs Auto 0.03 X10*3/uL (0.00-0.03); Imm Gran Pct Auto 0.4 % (0.0-0.4); Lymphocytes Absolute Auto 1.2 X10*3/uL (1.2-4.9); Lymphocytes Percent Auto 15.2 % (20-40); Mean Corpuscular HGB Conc 33.5 g/dl (31.0-36.0); Mean Corpuscular Hemoglobin 31.7 pg (27.0-33.0); Mean Corpuscular Volume 94.5 fL (80.0-98.0); Mean Platelet Volume 10.1 fL (9.4-12.4); Monocytes Absolute Auto 0.8 X10*3/uL (0.1-1.2); Monocytes Percent Auto 10.5 % (2-11); Neutrophils Absolute Auto 5.1 x10*3/uL (2.0-8.3); Neutrophils Percent Auto 67.9 % (45-73); Platelet Count 228 X10*3/uL (160-400); Red Blood Count 3.66 X10*6/uL (4.60-5.80); Red Cell Distribution Width 12.4 % (11.0-16.0); White Blood Count 7.6 X10*3/uL (4.8-10.8)
[2023-11-21 11:00] LABS: Alanine Aminotransferase 14 U/L (0-40); Albumin Level 4.2 g/dL (3.5-5.0); Alkaline Phosphatase 55 U/L (39-117); Anion Gap 11 (12-20); Aspartate Amino Transferase 20 U/L (5-37); Bilirubin Total 0.4 mg/dL (0.0-1.0); Blood Urea Nitrogen 31 mg/dL (9-16); Carbon Dioxide 25 mmol/L (22-29); Chloride 111 mmol/L (96-108); Cholesterol 153 mg/dL (<200); Estimated Glomerular Filt Rate 50; Glucose Fasting 117 mg/dL (60-99); HDL Cholesterol 41 mg/dL (>40); LDL Cholesterol Calculated 101 mg/dL (<100); Sodium 143 mmol/L (135-145); Total Protein 7.4 g/dL (6.5-8.0); Triglycerides 55 mg/dL (<150)
[2023-11-21 11:24] LABS: TSH reflex Free T4 3.27 uIU/mL (0.32-4.0)
== END 2023-11-21 06:02 | disposition home or self-care (01) ==
LOC: HO.HMGCLDS 06:01
PROVIDERS: PCP Nurse Practitioner Family; Visit Provider Nurse Practitioner Family
DX: Z00.00 Encounter for general adult medical examination without abnormal findings (principal); E11.9 Type 2 diabetes mellitus without complications
CPT/HCPCS: 36415; 80053; 80061; 81001; 84443; 85025; 87086

== ENCOUNTER 2024-05-13 08:03 | Outpatient (AMB) | payer MEDICARE, SELFPAY ==
[2024-05-13 08:07] VITALS: BP 150/80; PULSE 66; O2SAT 97; BMI 31.0
--- NOTE | 2024-05-13 08:07 | A.OFFPC_ITS ---
Vital Signs 05/13/24 08:07 Height 5 ft 3 in Weight 175 lb BMI 31.0 BP 150/80 H Blood Pressure Location Lt brachial Position Sitting Pulse 66 Pulse Source Pulse Oximeter Pulse Oximetry (%) 97 Intake Visit Reasons: 6-7 month follow up Intake Note: pt is here for 6 month follow up Hematology Oncology Consultant Required: No Accompanied by: Self / Same As Patient Allergies No Known Allergies Allergy (Verified 05/13/24 08:08) Tobacco use date assessed: 10/24/23 Fall risk assessment: No Falls in past year Last assessed Fall Risk: 05/13/24 Dental Screening Dental Screen Date: 10/24/23 HPI 6-7 month follow up HPI Details Pt is a diabetic, on an BRIAN. A1C in office today is 6.3. Due for microalbumin. Denies polyuria, polydipsia, and neuropathy. Pt denies any signs and symptoms of hypoglycemia and does know how to correct it. Pt reports that his blood pressure at home has been in the 140s/70s. I don't want to take any more pills. Pt refuses any med increases or changes. [facility] Medical History Pyuria Incomplete emptying of bladder Benign prostatic hyperplasia with lower urinary tract symptoms Nocturia BPH (benign prostatic hyperplasia) Surgical History History of appendectomy History of back surgery Family History Sister Diabetes Breast cancer Lung cancer Social History Housing: Condominium Patient Tobacco Use Status: Never used Tobacco e-Cigarette/Vaping Use: Never Used service: Yes ( [employer] ) Current occupational status: retired Cognitive needs: No Hearing needs: No Vision needs: No Questionnaire PHQ-9 Over the last 2 weeks, how often have you been bothered by any of the following problems? 75207 - PHQ-9 Billing: Patient declined-do not bill Source: Developed by Drs. Manuel Agustin, Samia Kent, Ashvin Godoy and colleagues, with an educational gato from [employer]. Thrive Questionnaire Date Thrive assessed: 10/24/23 TIFFANIE-7 AMB Questionnaire TIFFANIE-7 Date TIFFANIE - 7 assessed: 10/24/23 Source: Developed by Drs. Manuel Agustin, Samia Kent, Ashvin Godoy and colleagues, with an educational gato from [employer]. TIFFANIE-7 Assessment Billing TIFFANIE-7 Assessment Tool: pt declined-do not bill Review of Systems Const Reports as per HPI Physical exam (Primary Care) Vital Signs: Last Vital Signs Pulse 66 05/13/24 08:07 BP 150/80 H 05/13/24 08:07 Pulse Ox 97 05/13/24 08:07 BMI result Body Mass Index 31.0 Tobacco/Smoking Status: Tobacco use Status Tobacco use date assessed 10/24/23 05/13/24 08:08 Patient Tobacco Use Status Never used Tobacco 05/13/24 08:08 e-Cigarette/Vaping Use Never Used 05/13/24 08:08 Thrive Assessment: Date of Thrive Assessment Date Thrive assessed 10/24/23 05/13/24 08:08 Const General: cooperative Nutritional Appearance: obese Orientation/consciousness: patient oriented x3 Resp Effort & Inspection: normal respiratory effort Auscultation: clear to auscultation bilaterally Cardio Rate: regular rate Rhythm: regular rhythm Heart sounds: S1 normal heart sound present and S2 normal heart sound present Neuro General: patient oriented x3 Extrem Other: refused foot exam Psych Appearance: grossly normal Mental Status: mental status grossly normal Speech and movement: Normal speech and movement present Affect: normal affect Attitude: cooperative Thought process: Normal thought process present Thought content: Normal thought content present Insight: Good insight present (Psych) Judgement: Good judgement present (Psych) Results AMB Hemoglobin A1c AMB Hemoglobin A1c 6.3 % Last Edit by Rickie Loving CMA on 05/13/24 08: 26 Coding Level of Care Code Est Pt Level 3 (30258) Diagnoses Diabetes E11.9 HTN (hypertension) I10 Assessment & Plan Assessment & Plan (1) Diabetes: Code(s): E11.9 - Type 2 diabetes mellitus without complications Category: Medical Plan: A1C done in office (2) HTN (hypertension): Code(s): I10 - Essential (primary) hypertension Category: Medical Plan: refuses any changes, pt will cont to have checked at home (daughter is a nurse) Plan The patient agreed to the use of a medical records custodian for this encounter. Scribed for XENIA Mcclendon by Shandra Diaz medical records custodian, on 05/13/2024 at 08:20 EST. Orders: Orders AMB Hemoglobin A1c Today Z13.9 - Encounter for screening, unspecified Complete Blood Count Auto Diff Today E11.9 - Type 2 diabetes mellitus without complications TSH reflex Free T4 Today E11.9 - Type 2 diabetes mellitus without complications UA CC w/rflx Micro + Cult Today E11.9 - Type 2 diabetes mellitus without complications Lipid Panel Today E11.9 - Type 2 diabetes mellitus without complications Comprehensive [place]. Panel Fast Today E11.9 - Type 2 diabetes mellitus without complications Medications: Refilled amlodipine 10 mg PO DAILY 90 days 90 tabs 1RF
== END 2024-05-13 08:31 | disposition home or self-care (01) ==
PROVIDERS: PCP Nurse Practitioner Family; Visit Provider Nurse Practitioner Family
DX: E11.9 Type 2 diabetes mellitus without complications (principal); I10 Essential (primary) hypertension; Z13.9 Encounter for screening, unspecified

== ENCOUNTER → 2024-05-13 08:03 | Outpatient (BNVA) | payer MEDICARE, SELFPAY | PROVIDERS: PCP Nurse Practitioner Family; Visit Provider Nurse Practitioner Family | DX: E11.9 Type 2 diabetes mellitus without complications (principal); I10 Essential (primary) hypertension | CPT/HCPCS: 83036; 99212 ==

== ENCOUNTER 2024-05-28 06:03 | Outpatient (REF) | payer MEDICARE, SELFPAY ==
[2024-05-28 10:05] LABS: Appearance Urine Clear; Color Urine Yellow; Glucose Urine UA Negative (Negative); Leukocyte Esterase Urine Moderate (2+) (Negative); Nitrite Urine Negative (Negative); PH 5.5 (5.0-9.0); UMIC TRIGGER UACC YES; Urine Blood Negative (Negative); Urine Ketones Negative (Negative); Urine Protein 30 (1+) mg/dL (Neg-Trace)
[2024-05-28 10:11] LABS: MANUAL DIFF FLAG NO
[2024-05-28 10:13] LABS: Bacteria Urine None Seen (None Seen); Hyaline Casts Urine 0-2 /LPF (0-2); RBC Urine 0-2 /HPF (0-2); Squamous Epithelial Cell Urine 0-2 /HPF (0-2); UACC Culture Trigger YES
[2024-05-28 10:16] LABS: Basophils Absolute Auto 0.1 X10*3/uL (0.0-0.2); Basophils Percent Auto 0.7 % (0-2); Eosinophils Absolute Auto 0.5 X10*3/uL (0.0-0.4); Eosinophils Percent Auto 6.7 % (0-4); Hematocrit 34.4 % (42.0-52.0); Hemoglobin 11.3 g/dl (14.0-18.0); Imm Gran Abs Auto 0.03 X10*3/uL (0.00-0.03); Imm Gran Pct Auto 0.4 % (0.0-0.4); Lymphocytes Absolute Auto 1.2 X10*3/uL (1.2-4.9); Lymphocytes Percent Auto 16.1 % (20-40); Mean Corpuscular HGB Conc 32.8 g/dl (31.0-36.0); Mean Corpuscular Hemoglobin 31.6 pg (27.0-33.0); Mean Corpuscular Volume 96.1 fL (80.0-98.0); Monocytes Absolute Auto 0.9 X10*3/uL (0.1-1.2); Monocytes Percent Auto 11.8 % (2-11); Neutrophils Absolute Auto 4.6 x10*3/uL (2.0-8.3); Neutrophils Percent Auto 64.3 % (45-73); Platelet Count 242 X10*3/uL (160-400); Red Blood Count 3.58 X10*6/uL (4.60-5.80); White Blood Count 7.2 X10*3/uL (4.8-10.8)
[2024-05-28 10:54] LABS: Alanine Aminotransferase 17 U/L (0-40); Albumin Level 4.1 g/dL (3.5-5.0); Alkaline Phosphatase 59 U/L (39-117); Anion Gap 13 (12-20); Aspartate Amino Transferase 24 U/L (5-37); Bilirubin Total 0.3 mg/dL (0.0-1.0); Blood Urea Nitrogen 39 mg/dL (9-16); Calcium 9.3 mg/dL (8.4-10.2); Carbon Dioxide 21 mmol/L (22-29); Chloride 113 mmol/L (96-108); Cholesterol 145 mg/dL (<200); Estimated Glomerular Filt Rate 43; Glucose Fasting 120 mg/dL (60-99); HDL Cholesterol 36 mg/dL (>40); LDL Cholesterol Calculated 91 mg/dL (<100); Potassium 4.9 mmol/L (3.3-5.1); Sodium 142 mmol/L (135-145); Total Protein 7.2 g/dL (6.5-8.0); Triglycerides 90 mg/dL (<150)
[2024-05-28 11:12] LABS: TSH reflex Free T4 3.59 uIU/mL (0.32-4.0)
== END 2024-05-28 06:04 | disposition home or self-care (01) ==
LOC: HO.HMGCLDS 06:03
PROVIDERS: PCP Nurse Practitioner Family; Visit Provider Nurse Practitioner Family
DX: E11.9 Type 2 diabetes mellitus without complications (principal); R82.90 Unspecified abnormal findings in urine
CPT/HCPCS: 36415; 80053; 80061; 81001; 84443; 85025; 87086

== ENCOUNTER 2024-11-20 10:09 | Outpatient (AMB) | payer MEDICARE, SELFPAY ==
[2024-11-20 10:26] VITALS: BP 128/80; PULSE 70; RESP 18; TEMP 36.6; O2SAT 97; BMI 30.5
--- NOTE | 2024-11-20 10:26 | MHC.PC.OV ---
Vital Signs 11/20/24 10:26 Height 5 ft 3 in Weight 172 lb BMI 30.5 BP 128/80 Blood Pressure Location Lt brachial Position Sitting Respiration 18 Pulse 70 Pulse Source Pulse Oximeter Temp 97.9 F Temp Source Oral Pulse Oximetry (%) 97 Oxygen Delivery Method Room Air Intake Visit Reasons: Annual Physical - needs help checking in Intake Note: Pt is here today for PE. Allergies No Known Allergies Allergy (Verified 11/20/24 11:26) Medication List - Last Reconciled 11/20/24 by BIJAN Colon- acetaminophen 500 mg PO Q6H PRN amlodipine 10 mg PO DAILY 90 days atenolol 50 mg PO DAILY 90 days finasteride 5 mg PO DAILY 90 days lisinopril 40 mg PO DAILY 90 days loratadine (Claritin) 10 mg PO DAILY PRN Tobacco use date assessed: 11/20/24 Fall risk assessment: No Falls in past year Last assessed Fall Risk: 11/20/24 Dental Screening Dental Screen Date: 11/20/24 Did you have a dental visit in the last 12 months?: No Did you have a dental problem in the last 6 months where you did not have access to dental care?: No Was dental information given to patient?: Patient declined HPI Annual Physical - needs help checking in HPI Details History of Present Illness The patient is an 84-year-old male presenting for a routine examination. 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 The patient also demonstrates signs of onychomycosis, specifically noted in his left foot (only wanted to show me one foot). He denies any acute issues, including chest pain, shortness of breath, abdominal or urinary symptoms, and blood in stool. He emphasizes his preference to abstain from specialist referrals, colonoscopy, digital rectal exams, and PSA testing. He indicates his eye exam is up to date. Despite the presenting darker macular scalp lesions, he chose not to pursue dermatological consultation. The patient is generally informed of follow-up consultations with his previously consulted urologist, but no acute or pressing medical concerns are identified at present. Health Maintenance - Refusal of colonoscopy, digital rectal examination, and PSA testing. - Overdue eye examination noted and acknowledged by the patient. - Awareness of ongoing urologic health management with a previous urologist. Social History Review of Systems - Cardiovascular: Denies chest pain. - Respiratory: Denies increased shortness of breath. - Gastrointestinal: Denies abdominal pain, blood in stool, constipation, and diarrhea. - Genitourinary: Denies urinary issues. - Dermatological: Reports scalp lesions but denies seeing a manager program management. Physical Exam General: Cooperative, healthy appearing, comfortable, no acute distress and well developed Orientation: Patient oriented x3 Limitations: No limitations Head: Normal to inspection Ears: Hearing grossly normal bilaterally Nose: Normal external nose present Face and sinus: Normal facial exam Eyes: Appearance normal, both eyes and all related structures Neck: Normal visual inspection and Yes full ROM Respiratory: Normal respiratory effort and able to speak in complete sentences. Clear to auscultation bilaterally Cardiovascular: Regular rate and rhythm. Normal S1 and S2 GI: Normal to inspection. Soft to palpation and nontender Skin: Darker macular lesions to the scalp Neuro: Patient oriented x3, some neuropathy noted Extremities: Anachymicosis noted on the left foot, very minimal sensation with the use of monofilament, otherwise normal to inspection Results Plan Given the patient's presentation, management is conservative, considering his refusals of specified examinations and specialist referrals. Neuropathy and onychomycosis are not causing distress, thereby not necessitating immediate intervention. Dermatological assessment was suggested but declined. Recommended screenings and follow-ups can be discussed and potentially altered based on any future patient-perceived changes in his health or preferences. Discussion Notes During the consultation, I explained the benefits and importance of routine screenings, including colonoscopy and PSA testing. Despite his refusals, the patient is informed of the potential risks and benefits of such interventions. He agrees to maintain contact with his urologist should any concerns arise and acknowledges the need to update his eye examination. I provided understanding and support for his decisions while emphasizing precautionary and routine health measures. Patient Instructions - Monitor any changes in neuropathy symptoms and seek advice if symptoms worsen. - Follow up with a urologist if any urinary issues arise. - Consider updating the overdue eye examination at the earliest convenience. - Continually observe scalp lesions for any changes and consult if necessary. - Return for regular health visits and screenings as discussed, with flexibility regarding future plans based on changes in health or preference. [facility] Medical History Pyuria Incomplete emptying of bladder Benign prostatic hyperplasia with lower urinary tract symptoms Nocturia BPH (benign prostatic hyperplasia) Surgical History History of appendectomy History of back surgery Family History Sister Diabetes Breast cancer Lung cancer Social History Housing: Condominium Patient Tobacco Use Status: Never used Tobacco e-Cigarette/Vaping Use: Never Used service: Yes ( [employer] ) Current occupational status: retired Cognitive needs: No Hearing needs: No Vision needs: No Questionnaire PHQ-9 Over the last 2 weeks, how often have you been bothered by any of the following problems? 1. Little interest or pleasure in doing things: not at all 2. Feeling down, depressed, or hopeless: not at all 3. Trouble falling or staying asleep, or sleeping too much: not at all 4. Feeling tired or having little energy: not at all 5. Poor appetite or overeating: not at all 6. Feeling bad about yourself - or that you are a failure or have let yourself or your family down: not at all 7. Trouble concentrating on things, such as reading the newspaper or watching television: not at all 8. Moving or speaking so slowly that other people could have noticed. Or the opposite - being so fidgety or restless that you have been moving around a lot more than usual: not at all 9. Thoughts that you would be better off or of hurting yourself in some way: not at all Total score: 0 Depression Screening Interpretation: Negative Depression Screening Done: Yes 99784 - PHQ-9 Billing: Yes Source: Developed by Drs. Manuel Agustin, Samia Kent, Ashvin Godoy and colleagues, with an educational gato from [employer]. Thrive Questionnaire Date Thrive assessed: 11/20/24 I am a: Patient What is your living situation today?: I choose not to answer this question Within the past 12 months, did the food you bought not last and you didn't have the money to get more?: I choose not to answer this question Within the past 12 months, did you worry whether your food would run out before you got money to buy more?: I choose not to answer this question Do you have trouble paying for medicines?: I choose not to answer this question Do you have trouble getting transportation to medical appointments?: I choose not to answer this question Do you have trouble paying your heating and electricity bill?: I choose not to answer this question Do you have trouble taking care of your child, family member or friend?: I choose not to answer this question Do you have trouble with day-to-day activities such as bathing, preparing meals, shopping, managing finances, etc.?: I choose not to answer this question Are you currently unemployed and looking for a job?: I choose not to answer this question Are you interested in more education?: I choose not to answer this question THRIVE Score: 0 AUDIT C Alcohol Use Questionnaire (AUDIT-C) 1. How often do you have a drink containing alcohol?: Never 3. How often do you have six or more drinks on one occasion?: Never Total Score: 0 TIFFANIE-7 AMB Questionnaire TIFFANIE-7 Date TIFFANIE - 7 assessed: 11/20/24 Feeling nervous, anxious, or on edge: 0 = Not at all Not being able to stop or control worryin = Not at all Worrying too much about different things: 0 = Not at all Trouble relaxin = Not at all Being so restless that it is hard to sit still: 0 = Not at all Becoming easily annoyed or irritable: 0 = Not at all Feeling afraid as if something awful might happen: 0 = Not at all Total TIFFANIE-7 score (0-4 normal; 5-9 mild; 10-14 moderate; 15-21 severe): 0 Source: Developed by Drs. Manuel Agustin, Samia Kent, Ashvin Godoy and colleagues, with an educational gato from [employer]. TIFFANIE-7 Assessment Billing TIFFANIE-7 Assessment Tool: TIFFANIE-7 Assessment 11265 Physical exam (Primary Care) Vital Signs: Last Vital Signs Temp 97.9 F 11/20/24 10:26 Pulse 70 11/20/24 10:26 Resp 18 11/20/24 10:26 BP 128/80 11/20/24 10:26 Pulse Ox 97 11/20/24 10:26 Oxygen Delivery Method Room Air 11/20/24 10:26 BMI result Body Mass Index 30.5 Tobacco/Smoking Status: Tobacco use Status Tobacco use date assessed 11/20/24 11/20/24 10:32 Patient Tobacco Use Status Never used Tobacco 11/20/24 10:26 e-Cigarette/Vaping Use Never Used 11/20/24 10:26 PHQ-9: PHQ-9 Score PHQ-9: Total score 0 11/20/24 10:51 Depression Screening Interpretation: Negative Thrive Assessment: Date of Thrive Assessment Date Thrive assessed 11/20/24 11/20/24 10:36 Results AMB Hemoglobin A1c AMB Hemoglobin A1c 5.5 % Last Edit by LEONCIO Foote on 11/20/24 11:08 Results Reviewed Results Reviewed: Laboratory Last Values Hgb A1c (Clinic) 5.5 % (4.0-6.0) 11/20/24 10:36 Coding Level of Care Code Est Pt Prev Care >65y(47146) Diagnoses Physical exam Z00.00 Additional Codes TIFFANIE-7 Assessment Billing - TIFFANIE-7 Assessment Tool: TIFFANIE-7 Assessment 07477 ([id number]) PHQ-9 - 09294 - PHQ-9 Billing: Yes ([id number]) Assessment & Plan Assessment & Plan (1) Physical exam: Code(s): Z00.00 - Encounter for general adult medical examination without abnormal findings Category: Medical Plan . Orders: Orders AMB Hemoglobin A1c Today Z13.9 - Encounter for screening, unspecified Comprehensive [place]. Panel Fast Today Z00.00 - Encounter for general adult medical examination without abnormal findings Lipid Panel Today Z00.00 - Encounter for general adult medical examination without abnormal findings Complete Blood Count Auto Diff Today Z00.00 - Encounter for general adult medical examination without abnormal findings TSH reflex Free T4 Today Z00.00 - Encounter for general adult medical examination without abnormal findings UA CC w/rflx Micro + Cult Today Z00.00 - Encounter for general adult medical examination without abnormal findings
--- OUTSIDE RECORDS SUMMARY | 2024-11-20 11:44 | XMS_ITS ---
Author Organization [facility] Address [address] [place] [address] Care Team Providers Care Washer Machine Name Role Phone Oli Bernard Primary Care Provider Unav ailable Leanne Corbin [phone] Encounters Encounter Location Date Provider Diagnosis [facility] [address] [place] [address] 05/23/2024 Leanne Corbin Plan Of Treatment No Information Progress Notes * Raad ANTUNEZ BDOB: [birth year] (84 yo M)Acc No.[id number]:05/23/2024 Progress Note Patient:?Raad ANTUNEZ Provider:Jas Corbin DPM :1940???Age:83 Y???Sex:Male Paulo e:05/23/2024 Address:[address] [facility], [address], [place], [id number] Pcp:PETE Mcclendon Subjective: * Chief Complaints: * ??? * Medical History:? Objective: * Vitals:? Assessment: Plan: * Treatment: * Images: * The named appointment provid er may or may not be the originator of this progress note, and it is not deemed complete until electronically signed by the appointment provider. Sign off status: Pending * Provider:Jas Corbin DPM Date:?2023 Generated for Morris ramires/[place]/eTransmitting on:?11/20/2024 11:44 AM EDT
--- OUTSIDE RECORDS SUMMARY | 2024-11-20 11:44 | XMS_ITS ---
Author Organization [facility] Address [address] [place] [address] Care Team Providers Care Industrial Registered Nurse Name Role Phone Oli Bernard Primary Care Provider Unav ailable Black, Leanne Unavailable [phone] REASON FOR VISIT Cancel Encounters Encounter Location Date Provider Diagnosis [facility] [address] [place] [address] 05/21/2024 Leanne Black Plan Of Treatment No Information Progress Notes * Raad ANTUNEZ BDOB: [birth year] (83 yo M)Acc No.[id number]:05/21/2024 Patient:?Raad Antunez :1940???Age:83 Y???Sex:Male Address:[address], [address], [place], [address] * true * Date:? Generated for Printi ng/Faxing/eTransmitting on:?11/20/2024 11:44 AM EDT
--- OUTSIDE RECORDS SUMMARY | 2024-11-20 11:45 | XMS_ITS ---
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 Name Role Phone Oli Bernard Primary Care Provider Unav ailable BlackLeanne Unavailable [phone] Allergies No Known Allergies REASON FOR VISIT Open sore - Toe Medications Medication SIG (Take, Route, Frequency, Duration) Notes Start Date End Date Status Atenolol 50 MG TAKE 1 TABLET BY MARVIN TH EVERY DAY FOR 90 DAYS Oral for 90 Days Active Finasteride 5 MG TAKE 1 TABLET DAILY ON MONDAY, MONDAY, AND MONDAY Oral for 84 Days Active Ciclopirox Olamine 0.77 % 1 application Externally Twice a day for 30 days Active amLODIPine Besylate 10 MG TAKE 1 TABLET BY MOUTH EVERY DAY FOR 90 DAYS Oral for 90 Days Active Lisinopril 40 MG TAKE 1 TABLET BY MARVIN TH DAILY FOR 90 DAYS Oral for 90 Days Active Social History Tobacco Use: Social History Observation Description Date Details (start date - stop date) Never Smoker NA - NA Tobacco Use/Smoking Question Answer Notes Are you a: nonsmoker Additional Findings: Tobacco Non-User Current no n-smoker Tobacco use other than smoking: Question Answer Notes Are you an other tobacco user? No Problems Problem Type SNOMED Code ICD Code Onset Dates Problem Status W/U Status Risk Notes Problem Ulcer of toe of left foot (disorder) (094432929 13217395) Skin ulcer of toe of left foot, limited to breakdown of skin (L97.521) Active confirmed Nonapplicable Problem Ulcer of toe of right foot (disorder) (033772959 13997373) Skin ulcer of toe of right foot, limited to breakdown of skin (L97.511) Active confirmed Nonapplicable Vital Signs Height 5 ft 3in in 02/05/2024 Weight 170 lbs 02/05/2024 BMI 30.11 kg/m2 02/05/2024 Blood pressure systolic 140 mm Hg 02/05/20 24 Blood pressure diastolic 76 mm Hg 024 Procedures Procedure Date Ordered Date Performed Result Body Sit e 89783- Debride <25 sq cm 02/05/2024 N/A Encounters Encounter Location Date Provider Diagnosis [facility] [place] [address] [place] [address] 02/05/2024 Leanne Black Skin ulcer of toe of left foot, limited to breakdown of skin L97.521 and Skin ulcer of toe of right foot, limited to breakdown of skin L97.511 Assessments Encounter Date Diagnosis (ICD Code) Assessment Notes Treatment Notes Treatment Clinical Notes Section Notes 02/05/2024 Skin ulcer of toe of left foot, limited to breakdown of skin (ICD-10 - L97.521) Nonapplicable Patient Educated with: WOUND CARE INSTRUCTIONS.p df (WOUND CARE INSTRUCTIONS.p df) 02/05/2024 Skin ulcer of toe of right foot, limited to breakdown of skin (ICD-10 - L97.511) Nonapplicable Patient Educated with: WOUND CARE INSTRUCTIONS.p df (WOUND CARE INSTRUCTIONS.p df) Plan Of Treatment Treatment Notes Assessment Notes Skin ulcer of toe of left fo ot, limited to breakdown of skin Patient Educated with: WOUND CARE INSTRUCTIONS.pdf (WOUND CARE INSTRUCTIONS.pdf) Skin ulcer of toe of right f oot, limited to breakdown of skin Patient Educated with: WOUND CARE INSTRUCTIONS.pdf (WOUND CARE INSTRUCTIONS.pdf) Pending Test Test Name Order Date 69508- Debride <25 sq cm 02/05/2024 Next Appt Details Follow Up: 8w, Reason: Procedure Notes * Category Sub-Category Detail Notes Debride skin< 25 sq cm Open wound Physician of record performed open wound selective debridement of first 25 sq cm or less, of devitilized necrotic/nonviable soft tissue, fibrin, and exudate extending from the epidermis through the dermis, utilizing sharp dissection with sterile 15 blade, and/or tissue nippers. Sterile antibiotic dressing applied, ANESTHESIA- was accomplished TOPICALLY with Lidocaine Hydrochloride Jelly 2 percent. Hemostasis was achieved through direct pressure. Post debridement measurements: 8_ mm x4 mm x 2_ mm. Character of the wound post debridement is stable (36272) Progress Notes * Raad ANTUNEZ BDOB: (83 yo M)Acc No.[id number]:02/05/2024 Progress Notes Patient:?Raad Antunez Provider:?Leanne Corbin DPM :1940???Age:83 Y???Sex:Male Paulo e:02/05/2024 Address:[address] [place], [place] [id number] Pcp:PETE Mcclendon Subjective: * Chief Complaints: * ???Open sore - Toe * HPI: ???Skin problems:?Treatments:?none.? * ROS:?General/Constitutional:?Nausea?denies.?Vomiting?denies.?Hunger Thirst?denies.?Loss appetite?denies.?Chills?denies.?Fatigue?denies.?Fever?denies.?Night Sweats?denies.?Unexplained weight loss?denies.?Unexplained weight gain?denies.?HEENTM:?Dentures?denies.?Dizziness?denies.?Glasses/contacts?admits.?Retinopathy?de nies.?Blurred/double vision?denies.?TMJ?denies.?Discharge/drainage?denies.?Implants?denies.?Sore throat?denies.?Dental implants?denies.?Hard of hearing ?denies.?Difficulty chewing/swallowing/speaking?denies.?Nose bleeds?denies.?Sore mouth?denies.?Respiratory:?On Oxygen?denies.?Pneumonia/pleurisy?denies.?Bronchitis?denies.?Emphysema?denies.?C oughing?denies.?Cough blood?denies.?Shortness of breath?denies.?Wheezing?denies.?Cardiovascular:?Pacemaker?denies.?MVP?denies.?WPW?denies.?CHF?denies.?Heart attack?denies.?Septal defect?denies.?Rapid beat?denies.?Chest pain ?denies.?Atrial Fib.?denies.?Murmur/Palpitations?denies.?Gastrointestinal:?Hemorrhoids?denies.?Stomach/Abdominal pain?denies.?Dark blood stool?denies.?Irritable bowel ?denies.?Constipation?denies.?Diarrhea?denies.?Hematology:?Swelling?denies.?Clots?denies.?Varicose Veins?denies.?Bruising?denies.?Bleeding problem?denies.?Genitourinary:?Blood urine?denies.?Frequent/Painfu/urination/bladder control?denies.?Kidney stones?denies.?Infection (UTI)?denies.?Nephropathy?denies.?sex trans dis (STD)?denies.?Prostate?denies.?Musculoskeletal:?Hammertoes?denies.?Bunions?denies.?Back Pain?denies.?Muscle Cramps/ Resting?denies.?Muscle cramps / walking?denies.?Generalized aches and pains?denies.?Weakness?denies.?Integ.:?Garcia?denies.?Scars?denies.?Corns/calluses?denies.?Ingrown nails?denies.?Painful nails?admits.?Open Sores?denies.?Rashes?denies.?Neurologic:?Difficulty sleeping?denies.?Brain disorder?denies.?Numbness?denies.?Balance trouble?denies.?Confusion?denies.?Fainting/blackouts?denies.?Tingling?denies.?Tr emors?denies.? * Medical History:? * Surgical History:?back surge ry 2004appendectomy 1960 * Hospitalization/Major Diagno stic Procedure:?Denies Past Hospitalization * Family History:?Mother: dece ased.?Father: .? * Social History:?Tobacco Use:?Tobacco Use/Smoking?Are you a:?nonsmoker ?Additional Findings: Tobacco Non-User?Current non-smoker ?Tobacco use other than smoking?Are you an other tobacco user??No * Medications:?TakingFinasteri de 5 MG Tablet TAKE 1 TABLET DAILY ON MONDAY, MONDAY, AND MONDAY Oral Atenolol 50 MG Tablet TAKE 1 TABLET BY MOUTH EVERY DAY FOR 90 DAYS Oral Lisinopril 40 MG Tablet TAKE 1 TABLET BY MOUTH DAILY FOR 90 DAYS Oral amLODIPine Besylate 10 MG Tablet TAKE 1 TABLET BY MOUTH EVERY DAY FOR 90 DAYS Oral Ciclopirox Olamine 0.77 % Cream 1 application Externally Twice a dayMedication List reviewed and reconciled with the patientTaking Finasteride 5 MG Tablet TAKE 1 TABLET DAILY ON MONDAY, MONDAY, AND MONDAY Oral Taking Atenolol 50 MG Tablet TAKE 1 TABLET BY MOUTH EVERY DAY FOR 90 DAYS Oral Taking Lisinopril 40 MG Tablet TAKE 1 TABLET BY MOUTH DAILY FOR 90 DAYS Oral Taking amLODIPine Besylate 10 MG Tablet TAKE 1 TABLET BY MOUTH EVERY DAY FOR 90 DAYS Oral Taking Ciclopirox Olamine 0.77 % Cream 1 application Externally Twice a dayMedication List reviewed and reconciled with the patient * Allergies:?N.K.D.A.yes[Aller gies Verified] Objective: * Vitals:?Ht: 5 ft 3in, Wt: 17 0, BMI: 30.11, Shoe size: 7.5-8, BP: 140/76 mm Hg, BS: 100, Ht-cm: 160.02 cm, Wt-k.11 kg. * ???Past Orders: ???Lab:HEMOGLOBIN A1C (GLYCO HEMOGLOBIN) (Order Date - 11/06/2023) (Collection Date - 11/06/2023) ? Value Reference Range ?HEMOGLOBIN A1C % (HH) 6.5 * Examination: ???Ophthalmology Referral: ?DIABETES EYE EXAM?Diabetic Retinopathy Screening:?Yes ?Findings of Diabetic Eye Exam:?no retinopathy?Dermatologic: ?ULCER:? LOCATION,Medial,? TA, T5 SIZE, 7mm X 4mm X 2mm, BASE, granular, RIM, hyperkeratotic, UNDERMINING, absent, TRACKING, Full thickness breakdown of skin, DRAINAGE, serosanguineous, mild, NECROTIC TISSUE, loosely-adherent, yellow slough, MALODOR, absent, CALOR, absent, ERYTHEMA, absent, PAIN ON PALPATION, present.? Assessment: * Assessment: 1.?Skin ulcer of toe of righ t foot, limited to breakdown of skin - L97.511, Response to treatment, Nonapplicable?2.?Skin ulcer of toe of left foot, limited to breakdown of skin - L97.521, Response to treatment, Nonapplicable? Plan: * Treatment: 2.?Skin ulcer of toe of left foot, limited to breakdown of skin?Procedure: 59364- Debride <25 sq cm Notes: Patient Educated with: WOUND CARE INSTRUCTIONS.pdf (WOUND CARE INSTRUCTIONS.pdf)?? * Procedures:?Debride skin< 25 sq cm:?Open wound?Physician of record performed open wound selective debridement of first 25 sq cm or less, of devitilized necrotic/nonviable soft tissue, fibrin, and exudate extending from the epidermis through the dermis, utilizing sharp dissection with sterile 15 blade, and/or tissue nippers. Sterile antibiotic dressing applied, ANESTHESIA- was accomplished TOPICALLY with Lidocaine Hydrochloride Jelly 2 percent. Hemostasis was achieved through direct pressure. Post debridement measurements: 8_ mm x4 mm x 2_ mm. Character of the wound post debridement is stable (44996).? * Procedure Codes:?49298 ACTIV E WOUND CARE/20 CM OR < * Preventive Medicine:? ??Counseling:?Ulcer:?A detailed plan of care was reviewed with the patient. We emphasized the fact that the patient takes on an active participating role in the treatment process and emphasized to them that they are an included, valued, and important member of the wound healing team in order to reach an expedient successful outcome. The patient agreed to follow their medically recommended diet while increasing their protein intake if safely able to do so, maintain proper bodily hydaration, abide by weight-bearing restrictions at all times, quit all current smoking habits if any, and diligently follow any/all dressing change instructions. It was clearly made known to the patient that if they fail to do their part, they will likely extend their course of treatment as well as possibly increase their risk of adverse events including amputation. The patient was instructed on importance of proper wound care consisting of pressure reduction, and proper maintainance of a moist wound environment. The patient is to cleanse the wound with warm soapy water/peroxide/saline, or betadine BID based on product availability. The patient is to apply ( Rx Betadine solution, ____ ) Antibiotic to the wound and cover with a DSD as directed. The patient was instructed to change dressings according to orders, or PRN saturation, leaks. The patient was instructed to monitor and report any signs or symptoms of infection or any untoward reactions. Precautions Taken: Offloading/Pressure reduction via rest/ limited activity to essential to daily life only, cane/ crutches/ walker/ knee scooter/ wheel chair, shoe modification, accommodative padding, sharp debridement, and take/apply medication as directed. THE GOALS of wound debridement to remove devitilized tissue, decrease risk for infection, promote wound healing and prevent further complication were discussed/reviewed. Debridement frequency as indicated, Every 5-8 weeks until healed.? * Follow Up:?8w * Images: * Sign off status: Completed true * Provider:?Leanne Corbin DPM Date:?2023 Generated for Morris ramires/Grayson/Kostas on:?11/20/2024 11:44 AM EDT History and Physical Notes * HPI (History of Present Illness) Category Sub-Category Detail Notes Category Not es Skin problems Treatments: none Examination Category Sub-Category Detail Notes Category Not es Dermatologic ULCER: LOCATION,Medial, TA, T5 SIZE, 7mm X 4mm X 2mm, BASE, granular, RIM, hyperkeratotic, UNDERMINING, absent, TRACKING, Full thickness breakdown of skin, DRAINAGE, serosanguineous, mild, NECROTIC TISSUE, loosely-adherent, yellow slough, MALODOR, absent, CALOR, absent, ERYTHEMA, absent, PAIN ON PALPATION, present Ophthalmology Referral DIABETES EYE EXAM Diabeti c Retinopathy Screening:: Yes Findings of Diabetic Eye Exam:: no retin opathy
--- OUTSIDE RECORDS SUMMARY | 2024-11-20 11:45 | XMS_ITS | Patient Health Record ---
Author Organization [facility] [place] Address [address] [facility] [place] [address] Care Team Providers Care Finisher Brush Name Role Phone Oli Bernard Primary Care Provider Unav ailable Leanne Corbin Unavailable [phone] Allergies No Known Allergies Reason For Referral No Information Medications Medication SIG (Take, Route, Frequency, Duration) [...] 90 DAYS Oral for 90 Days Active Immunizations Vaccine Route Administration Date Status Comme nts Influenza Unknown 05/07/2023 Administered Social History Tobacco Use: Social History Observation Description Date Details (start date - stop date) Never Smoker NA - NA Tobacco Use/Smoking Question Answer Notes Are you a: nonsmoker Additional Findings: Tobacco Non-User Current no n-smoker Alcohol Screen Question Answer Notes Did you have a drink containing alcohol in the p ast year? No Points 0 Interpretation Negative Tobacco use other than smoking: Question Answer Notes Are you an other tobacco user? No Problems Problem Type SNOMED Code ICD Code Onset Dates Problem Status W/U Status Risk Notes Problem Ulcer of toe of right foot (disorder) (351994204 [id number]) Skin ulcer of toe of right foot, limited to breakdown of skin (L97.511) Active confirmed Nonapplicable Problem Ulcer of toe of left foot (disorder) (248108854 90047704) Skin ulcer of toe of left foot, limited to breakdown of skin (L97.521) Active confirmed Nonapplicable Vital Signs Blood pressure diastolic 76 mm Hg 02/05/2024 Height 5 ft 3in in 02/05/2024 Blood pressure systolic 140 mm Hg 02/05/2024 Weight 170 lbs 02/05/2024 BMI 30.11 kg/m2 02/05/2024 Procedures Procedure Date Ordered Date Performed Result Body Sit e 15523-Djqlkpjs Plate 01/18/2024 N/A 46278-Nahybbfu Plate Each Additional 01/18/2024 N/A 38856- Debride <25 sq cm 02/05/2024 N/A Encounters Encounter Location Date Provider Diagnosis [address] [address] 01/18/2024 Leanne Black Tinea unguium B35.1 ; Pain in right toe(s) M79.674 ; Pain in left toe(s) M79.675 ; Tinea pedis of both feet B35.3 and Ingrown nail L60.[address] [address] 02/05/2024 Leanne Black Skin ulcer of toe of left foot, limited to breakdown of skin L97.521 and Skin ulcer of toe of right foot, limited to breakdown of skin L97.[address] [address] 12/05/2023 Leanne Black [address] [address] 01/19/2024 Leanne Black [address] [address] 05/21/2024 Leanne Black Assessments Encounter Date Diagnosis (ICD Code) Assessment Notes Treatment Notes Treatment Clinical Notes Section Notes 01/18/2024 Tinea unguium (ICD-10 - B35.1) 01/18/2024 Pain in right toe(s) (ICD-10 - M79.674) 02/05/2024 Skin ulcer of toe of right foot, limited to breakdown of skin (ICD-10 - L97.511) Nonapplicable Patient Educated with: WOUND CARE INSTRUCTIONS.p df (WOUND CARE INSTRUCTIONS.p df) 02/05/2024 Skin ulcer of toe of left foot, limited to breakdown of skin (ICD-10 - L97.521) Nonapplicable Patient Educated with: WOUND CARE INSTRUCTIONS.p df (WOUND CARE INSTRUCTIONS.p df) 01/18/2024 Pain in left toe(s) (ICD-10 - M79.675) 01/18/2024 Tinea pedis of both feet (ICD-10 - B35.3) 01/18/2024 Ingrown nail (ICD-10 - L60.0) Plan Of Treatment Pending Test Test Name Order Date 49650-Obvuzyyj Plate 01/18/2024 84681-Idwiwari Plate Each Additional 41781- Debride <25 sq cm 02/05/2024 Insurance Providers Payer Name Payer Address Payer Phone Subscriber Number Group Number Insured Name Patient Relationship to Insured Coverage Start Date Coverage End Date [employer] Medicare [id number] [address] [address] [place] [address] [id number] Raad Antunez Self - patient is the insured Medical (General) History Medical History History ICD Code Arthritis Back pain Hiatal hernia Broken ankle Surgical History Surgery Date(Month/Year) back surgery 2004 appendectomy 1960
== END 2024-11-20 11:43 | disposition home or self-care (01) ==
PROVIDERS: PCP Nurse Practitioner Family; Visit Provider Nurse Practitioner Family
DX: Z13.9 Encounter for screening, unspecified (principal); Z00.00 Encounter for general adult medical examination without abnormal findings

== ENCOUNTER → 2024-11-20 10:09 | Outpatient (BNVA) | payer MEDICARE, SELFPAY | PROVIDERS: PCP Nurse Practitioner Family; Visit Provider Nurse Practitioner Family | DX: Z00.00 Encounter for general adult medical examination without abnormal findings (principal); G62.9 Polyneuropathy, unspecified; L98.9 Disorder of the skin and subcutaneous tissue, unspecified | CPT/HCPCS: 83036; 96127; 99397 ==

== ENCOUNTER 2025-03-03 09:24 | Outpatient (REF) | payer MEDICARE, SELFPAY ==
--- NOTE | ~2025-03-03 | XR_ITS ---
EXAMINATION: XR SHOULDER, RIGHT CLINICAL INFORMATION: W19.XXXA - Unspecified fall, initial encounter COMPARISON: None available. TECHNIQUE: AP external rotation, Grashey, scapular Y, and axillary views of the right shoulder. FINDINGS: Normal bone mineralization. No fracture, dislocation, or suspicious bone lesion. Normal alignment. The glenohumeral joint demonstrates moderate degenerative arthrosis. The AC joint demonstrates severe superior and inferior spurring. There is a type II acromion. Mild undersurface spurring. The subacromial space is near completely effaced, indicating underlying rotator cuff pathology. Remainder of the soft tissue and bony structures appear normal. XR/XR shoulder RT min 2V IMPRESSION: 1. No fracture or dislocation. 2. 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 3. Severe degenerative spurring of the AC joint. 4. Loss of the subacromial space, indicating underlying rotator cuff pathology. Electronically signed by: Andrzej Valderrama MD 03/03/2025 11:21 AM EDT
== END 2025-03-03 09:25 | disposition home or self-care (01) ==
LOC: HO.HMGCX 09:24
PROVIDERS: PCP Nurse Practitioner Family; Visit Provider Physician Assistant
DX: M25.511 Pain in right shoulder (principal); S43.421A Sprain of right rotator cuff capsule, initial encounter; W19.XXXA Unspecified fall, initial encounter; Y92.009 Unspecified place in unspecified non-institutional (private) residence as the place of occurrence of the external cause
CPT/HCPCS: 73030; 99212

== ENCOUNTER 2025-03-03 09:24 | Outpatient (AMB) | payer MEDICARE, SELFPAY ==
--- OUTSIDE RECORDS SUMMARY | 2024-05-23 04:30 | XMS_ITS ---
Author Organization [facility] Address [address] [place] [address] Care Team Providers Care Proj Engineer Name Role Phone Oli Bernard Primary Care Provider Unav ailable Leanne Corbin [phone] Encounters Encounter Location Date Provider Diagnosis [facility] [address] [place] [address] 05/23/2024 Leanne Corbin Plan Of Treatment No Information Progress Notes * Raad ANTUNEZ BDOB: [birth year] (84 yo M)Acc No.[id number]:05/23/2024 Progress Note Patient: Raad HERNANDEZ Provider: Kelly Corbin DPM :1940 A ge:83 Y S ex:Male Date:05/23/2024 Address:[address] [facility], [id number] Pcp:PETE Mcclendon Subjective: * Chief Complaints: * * Medical History: Objective: * Vitals: Assessment: Plan: * Treatment: * Images: * The named appointment provid er may or may not be the originator of this progress note, and it is not deemed complete until electronically signed by the appointment provider. Sign off status: Pending * Provider: Kelly Corbin DPM Date: 1 Generated for Printi ng/Faxing/eTransmitting on: 0 03/03/2025 10:12 AM EDT
[2025-03-03 10:25] VITALS: BP 144/76; PULSE 63; TEMP 36.9; O2SAT 95; BMI 29.8
--- NOTE | 2025-03-03 10:25 | MHC.OFFWIV ---
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 - The patient fell two weeks ago while pulling weeds, resulting in a fall where the rake hit his face and he landed on his right side. - The patient reports difficulty moving the right shoulder, with limited range of motion and an uneven appearance compared to the left shoulder. - The patient has been using Tylenol and ice for symptom management, with some improvement noted over time. - The patient is not on blood thinners Physical Exam General: Cooperative, healthy appearing, comfortable, no acute distress and well developed Orientation: Patient oriented x3 Limitations: Limited range of motion in the right shoulder due to pain Head: Normal to inspection Ears: Hearing grossly normal bilaterally Nose: Normal External nose present Face and sinus: slight edema inferior right eye, no ecchymosis noted Mouth: normal, moist oral mucosa Eyes: Difficulty moving the right eye; ache noted in the right eye Neck: Normal visual inspection and Yes full ROM Respiratory: Normal respiratory effort and able to speak in complete sentences. Skin: no rashes or lesions noted Neuro: Patient oriented x3 Extremities: right shoulder/trapezius appears higher than left, right shoulder with limited ROM, can abduct to elbow height. moving all other extremities normally [facility] Medical History Pyuria Incomplete emptying of bladder Benign prostatic hyperplasia with lower urinary tract symptoms Nocturia BPH (benign prostatic hyperplasia) Surgical History History of appendectomy History of back surgery Family History Sister Diabetes Breast cancer Lung cancer Social History Housing: Condominium Patient Tobacco Use Status: Never used Tobacco e-Cigarette/Vaping Use: Never Used service: Yes ([employer]uka! ) Current occupational status: retired Cognitive needs: No Hearing needs: No Vision needs: No Review of Systems Const All systems reviewed & are unremarkable except as noted in HPI and below Physical Exam Vital Signs: Last Vital Signs Temp 98.5 F 03/03/25 10:25 Pulse 63 03/03/25 10:25 BP 144/76 H 03/03/25 10:25 Pulse Ox 95 03/03/25 10:25 Oxygen Delivery Method Room Air 03/03/25 10:25 BMI result Body Mass Index 29.8 Assessment & Plan Assessment & Plan (1) Fall as cause of accidental injury in home as place of occurrence: Code(s): W19.XXXA - Unspecified fall, initial encounter; Y92.009 - Unspecified place in unspecified non-institutional (private) residence as the place of occurrence of the external cause Qualifiers: Encounter type: initial encounter Qualified Code(s): W19.XXXA - Unspecified fall, initial encounter; Y92.009 - Unspecified place in unspecified non-institutional (private) residence as the place of occurrence of the external cause Plan: Plan Patient was informed and verbally consented to the use of an ambient scribe for clinic note documentation during this visit Right Shoulder Pain - Plan: Obtain an x-ray of the right shoulder to assess for any structural damage. Follow-up with radiologist's interpretation to determine further management steps. Right shoulder XR showed XR/XR shoulder RT min 2V IMPRESSION: 1. No fracture or dislocation. 2. 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 3. Severe degenerative spurring of the AC joint. 4. Loss of the subacromial space, indicating underlying rotator cuff pathology. - patient is unable to tolerate a sling to support his right shoulder as he has very little range of movement in his neck in his daughter said he would not wear it any way. We will refer to orthopedics for further evaluation of rotator cuff pathology. (2) Right shoulder pain: Code(s): M25.511 - Pain in right shoulder Qualifiers: Chronicity: acute Qualified Code(s): M25.511 - Pain in right shoulder Plan: see above Orders: Orders XR shoulder RT min 2V Today M25.511 - Pain in right shoulder, W19.XXXA - Unspecified fall, initial encounter, Y92.009 - Unspecified place in unspecified non-institutional (private) residence as the place of occurrence of the external cause Referrals Orthopedics Referral M25.511 - Pain in right shoulder, W19.XXXA - Unspecified fall, initial encounter, Y92.009 - Unspecified place in unspecified non-institutional (private) residence as the place of occurrence of the external cause Medications: New meloxicam do not take other NSAIDS while taking this medication 15 mg PO DAILY PRN 15 tabs 0RF pain, moderate Coding Level of Care Code Est Pt Level 4 (88758) Diagnoses Fall as cause of accidental injury in home as place of occurrence, initial encounter W19.XXXA; Y92.009 Encounter type: initial encounter Acute pain of right shoulder M25.511 Chronicity: acute
== END 2025-03-03 11:52 | disposition home or self-care (01) ==
PROVIDERS: PCP Nurse Practitioner Family; Visit Provider Physician Assistant
DX: M25.511 Pain in right shoulder (principal); W19.XXXA Unspecified fall, initial encounter; Y92.009 Unspecified place in unspecified non-institutional (private) residence as the place of occurrence of the external cause

== ENCOUNTER → 2025-03-03 10:53 | Outpatient (BNV) | payer MEDICARE, SELFPAY | PROVIDERS: PCP Nurse Practitioner Family; Visit Provider Radiology Diagnostic Radiology | DX: M19.211 Secondary osteoarthritis, right shoulder (principal) | CPT/HCPCS: 73030 ==

== ENCOUNTER 2025-05-13 12:12 | Inpatient (IN) | payer MEDICARE, SELFPAY ==
--- OUTSIDE RECORDS SUMMARY | 2024-05-23 04:30 | XMS_ITS ---
Author Organization [facility] Address [address] [place] [address] Care Team Providers Care Dowel Sander Operator Name Role Phone Oli Bernard Primary Care Provider Unav ailable Leanne Corbin [phone] Encounters Encounter Location Date Provider Diagnosis [facility] [address] [place] [address] 05/23/2024 Leanne Corbin Plan Of Treatment No Information Progress Notes * Raad ANTUNEZ BDOB: [birth year] (84 yo M)Acc No.[id number]:05/23/2024 Progress Note Patient: Raad HERNANDEZ Provider: Kelly Corbin DPM :1940 A ge:83 Y S ex:Male Date:05/23/2024 Address:[address] [facility], [id number] Pcp:PETE Mcclendon Subjective: * Chief Complaints: * * Medical History: Objective: * Vitals: Assessment: Plan: * Treatment: * Images: * The named appointment provid er may or may not be the originator of this progress note, and it is not deemed complete until electronically signed by the appointment provider. Sign off status: Pending * Provider: Kelly Corbin DPM Date: Generated for Marijai ng/Farizwanag/eTransmitting on: 04:10 PM EDT
[2025-05-13] VITALS (8 sets, daily range): BP systolic 87–132; BP diastolic 42–61; PULSE 46–88; RESP 10–26; TEMP 36.4–37.4; O2SAT 84–97; BMI 27.2
--- NOTE | ~2025-05-13 | CT_ITS ---
CLINICAL HISTORY: ams CT head without contrast Comparison: None Findings: No evidence of acute territorial infarct. There is patchy low density in the periventricular and subcortical white matter. Diffuse volume loss is noted. No hydrocephalus. No hemorrhage, mass effect, mass lesion or midline shift. No abnormal extra-axial fluid. No calvarial fracture. Paranasal sinuses and mastoid air cells are clear. Impression: No acute intracranial process. Chronic changes as detailed. This document has been electronically signed by: Jose Baker MD on 05/17/2025 12:02:08
--- NOTE | ~2025-05-13 | CT_ITS ---
CLINICAL HISTORY: hypoxia --- Additional Notes or Special Instructions: Elevated Cr - TCd Dr @ 15:53 CT angiography chest with contrast. 3D Postprocessing. Comparison: None provided Findings: Calcified coronary atherosclerotic disease. Unremarkable thoracic aorta and great vessels. No aneurysm. No main or segmental pulmonary emboli identified. Hiatal hernia. Lingular, left and right lower lobe centrilobular ground-glass opacities. Right liver lobe medial segment dependent aspirated barium contrast, axial image number 40 of 55 series 5. Cholelithiasis. Moderate osteopenia. Diffuse idiopathic skeletal hyperostosis IMPRESSION: 1. Lingular, left and right lower lobe pneumonias. Short-term follow-up is suggested. 2. Calcified coronary atherosclerotic disease. 3. Hiatal hernia. 4. Cholelithiasis. 5. Moderate osteopenia. 6. Diffuse idiopathic skeletal hyperostosis. This document has been electronically signed by: Abiodun Motta MD on 05/13/2025 19:16:57
--- NOTE | ~2025-05-13 | XR_ITS ---
EXAMINATION: XR CHEST CLINICAL INFORMATION: pneumonia COMPARISON: None available. TECHNIQUE: Frontal view of the chest was obtained. FINDINGS: Heart size is normal. Lungs are clear. There is elevation of the right humeral head and concavity of the subacromial surface. Mild degenerative changes are present in the AC joints. XR/XR chest 1V IMPRESSION: No acute disease. 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 Electronically signed by: Juan Carlos Valentine MD 05/13/2025 01:26 PM EDT
--- NOTE | 2025-05-13 12:34 | ECG_ITS ---
Test Reason : CP Blood Pressure : */* mmHG Vent. Rate : 52 BPM Atrial Rate : * BPM P-R Int : * ms QRS Dur : 130 ms QT Int : 444 ms P-R-T Axes : * -16 17 degrees QTcB Int : 412 ms Poor data quality Possible Sinus bradycardia is no longer present with 1st degree A-V block Right bundle branch block Abnormal ECG When compared with ECG of 12-Mar-2004 14:12, Vent. rate has decreased by 36 bpm Referred By: Reji Young Electronically Signed By: JORGE JOSHI MD
--- NOTE | 2025-05-13 12:39 | ED.GENADULT ---
HPI - General Adult General Chief complaint: General Medical Stated complaint: Headache, sweating Time Seen by Provider: 05/13/25 12:38 Source: patient Mode of arrival: ambulatory Limitations: no limitations History of Present Illness ED Provider: Dr. Tong [facility] narrative: 84-year-old male history of hypertension, diabetes presented hospital today for sudden onset of diaphoresis, bradycardia and hypoxia. The patient was eating breakfast when this happened. Patient stated that he does have a history of chronic diarrhea. No nausea no vomiting no fever. He stated that when this occurred he did have 1 episode of chest pain however he is asymptomatic of any chest pain at this time. He does not feel short of breath. Triage nurse had difficulty obtaining a blood pressure. Patient was noted to be hypoxic as well in the 80s therefore patient was brought back to the room for further evaluation. Patient denies any recent illness. Denies any syncopal episode. No unilateral weakness or sensation changes. Related Data Home Medications ?Medication ?Instructions ?Recorded ?Confirmed acetaminophen 500 mg capsule 500 mg PO Q6H PRN Pain 06/25/21 03/03/25 loratadine 10 mg tablet (Claritin) 10 mg PO DAILY PRN 12/12/22 03/03/25 Previous Rx's ?Medication ?Instructions ?Recorded amlodipine 10 mg tablet 10 mg PO DAILY 90 days #90 tabs 11/26/24 atenolol 50 mg tablet 50 mg PO DAILY 90 days #90 tabs 02/26/25 lisinopril 40 mg tablet 40 mg PO DAILY 90 days #90 tabs 02/27/25 meloxicam 15 mg tablet 15 mg PO DAILY PRN pain, moderate 03/03/25 #15 tabs Allergies Allergy/AdvReac Type Severity Reaction Status Date / Time No Known Allergies Allergy Verified 05/13/25 12:43 Review of Systems Review of Systems: Pertinent review of systems as mentioned in HPI. All other system otherwise negative. [facility] Past Medical History [facility] Narrative: Medical history as mentioned in HPI Medical History Pyuria Incomplete emptying of bladder Benign prostatic hyperplasia with lower urinary tract symptoms Nocturia BPH (benign prostatic hyperplasia) Surgical History History of appendectomy History of back surgery Family History Family History Sister Diabetes Breast cancer Lung cancer Social History Social History Housing: Condominium Patient Tobacco Use Status: Never used Tobacco Smoked in Last 30 Days: No e-Cigarette/Vaping Use: Never Used Use of substances other than those prescribed or required for medical reasons: No Advance Directives: Yes Advance Directives on File: Yes Advance Directives Date on File: 05/13/25 service: Yes ([employer] ) Current occupational status: retired Cognitive needs: No Hearing needs: No Vision needs: No Physical Exam ED Exam Exam: General: Appears diaphoretic Head: Normacephalic, atraumatic ENT: oral mucosa moist, neck supple, no tracheal deviation Cardiovascular: Bradycardic rate, regular rhythm, no murmurs, rubbing, gallops Respiratory: CTAB, no wheeze, rales, rhonchi Gastrointestinal: Soft, non distended, non tender, non guarding Extremities: No limb pain or swelling, no calf tenderness Neurological: Awake and alert, no facial droop noted Skin: Warm and dry Psychiatric: Appropriate mood and thoughts Vital Signs: Vital Signs - 24 hr 05/13/25 12:31 05/13/25 12:45 05/13/25 13:06 Temperature 97.5 F Pulse Rate 46 L 57 69 Respiratory Rate 10 L 15 18 Blood Pressure 118/56 L 109/61 Pulse Oximetry 84 L 94 88 L Oxygen Delivery Method Room Air Room Air Nasal Cannula Oxygen Flow Rate 2 05/13/25 14:39 05/13/25 18:31 05/13/25 19:49 Temperature 97.7 F 99.4 F Pulse Rate 70 88 83 Respiratory Rate 26 H 26 H 20 Blood Pressure 99/60 114/51 L 132/51 L Pulse Oximetry 91 L 97 94 Oxygen Delivery Method Nasal Cannula Nasal Cannula Nasal Cannula Oxygen Flow Rate 2 4 2 05/13/25 21:07 Temperature 98.9 F Pulse Rate 69 Respiratory Rate 20 Blood Pressure 87/42 L Pulse Oximetry 93 Oxygen Delivery Method Nasal Cannula Oxygen Flow Rate 2 BMI result Body Mass Index 27.2 Medications Administered Generic Name Dose Route Start Last Admin Trade Name Freq PRN Reason Stop Dose Admin Enoxaparin Sodium 30 mg 05/13/25 22:00 05/13/25 22:24 Enoxaparin Sodium 30 Mg/0.3 Ml Syringe SUBCUT 30 mg Q24H MELBA Administration Lactated Ringer's 1,000 mls @ 100 mls/hr 05/13/25 21:15 05/13/25 22:27 Lr IVCONT 100 mls/hr .Q10H MELAB Administration Discontinued Medications Generic Name Dose Route Start Last Admin Trade Name Estela PRN Reason Stop Dose Admin Acetaminophen 975 mg 05/13/25 21:12 05/13/25 21:28 Acetaminophen 325 Mg Tablet PO 05/13/25 21:13 975 mg ONCE ONE Administration Azithromycin 500 mg 05/13/25 18:12 05/13/25 20:05 Azithromycin 500 Mg Tablet PO 05/13/25 18:13 500 mg ONCE ONE Administration Ceftriaxone Sodium 2 gm 05/13/25 13:22 05/13/25 13:31 Ceftriaxone Sodium 2 Gm Vial IVPUSH 05/13/25 13:23 2 gm ONCE ONE Administration Hydrocortisone Sodium Succinate 100 mg 05/13/25 21:09 05/13/25 21:23 Hydrocortisone Sod Succ/Pf 100 Mg Vial IVPUSH 05/13/25 21:10 100 mg ONCE ONE Administration Lactated Ringer's 1,000 mls @ 999 mls/hr 05/13/25 13:00 05/13/25 14:24 Lr IV 05/13/25 14:00 Infused .Q1H1M MELBA Infusion Lactated Ringer's 1,000 mls @ 999 mls/hr 05/13/25 17:30 05/13/25 20:07 Lr IV 05/13/25 18:30 Infused .Q1H1M MELBA Infusion Sodium Chloride 1,000 mls @ 999 mls/hr 05/13/25 21:15 05/13/25 21:25 Ns IV 05/13/25 22:15 999 mls/hr .Q1H1M MELBA Administration Piperacillin Sod/Tazobactam 100 mls @ 200 mls/hr 05/13/25 21:09 05/13/25 21:05 Sod 4.5 gm/ Sodium Chloride IV 05/13/25 21:38 200 mls/hr ONCE ONE Administration Medical Decision Making Medical Decision Making MDM Narrative: 84-year-old male history of diabetes hypertension presented hospital today for sudden onset of diaphoresis hypoxia. Plan to pursue a broad workup for the patient. Sepsis focused exam was perform at 05/13/2025 1300. Do not think patient is currently have sepsis. We will obtain EKG CBC chemistry troponin chest x-ray. We will check his electrolytes. Sugar was evaluated. We will send to 250s. We will also start patient on IV fluid at this time troponin and BNP will be obtained. Screening lactic acid will be obtained as well. Patient has no fever no tachycardia. No pain. No shortness of breath. He currently does not complain of chest pain. EKG did not show any signs of STEMI. Patient does have slight leukocytosis 11.3. Slight elevation of lactic acid at 2.1. We will empirically cover patient with IV ceftriaxone. I do not think this is sepsis. Patient's BNP is slightly elevated at 446. Troponin is negative. Patient is chest x-ray did not show any signs of pneumonia. COVID and flu swab is negative. Patient is noted to be hypoxic On room air therefore patient is placed on 2 L nasal cannula. Patient was satting in the mid 80s. We will plan to obtain a CTA of the chest to evaluate for any signs of pulmonary embolism. CTA of the chest did not show any signs of PE. Patient does have bilateral pneumonia. Patient has received IV ceftriaxone azithromycin. Patient will be admitted to the hospital for acute respiratory failure secondary to pneumonia. Notified by nursing staff the patient has some signs of hypotension. Additional IV fluid be given. Stress dose IV hydrocortisone will be provided the patient. We will continue to observe the patient does time. Patient will be signed out to oncoming provider pending reassessment of his blood pressure. Discussed the case with the hospitalist. 10:36 PM 05/13/2025 (Dr. Amelia Villarreal, D.O.) blood pressure improving, patient is stable for admission to [facility]. Case discussed with hospitalist who agrees with plan for admission. Admitted in guarded condition. Differential Diagnosis Differential Diagnoses: The differential diagnosis associated with the presentation includes ACS, CHF, hypoglycemia, pneumonia, pulmonary embolism Admission/Observation Consideration of admission/observation: Escalation of care including admission/observation considered Consult Healthcare Provider Management of the patient was discussed with: Hospitalist Lab Data [facility] Lab Attestation statement: I reviewed the patient's lab results. 05/13/25 12:48 05/13/25 12:48 Labs: Lab Results 05/13/25 05/13/25 05/13/25 Range/Units 12:48 12:50 12:55 WBC 11.3 H (4.8-10.8) X10*3/uL RBC 3.53 L (4.60-5.80) X10*6/uL Hgb 11.3 L (14.0-18.0) g/dl Hct 33.1 L (42.0-52.0) % MCV 93.8 (80.0-98.0) fL MCH 32.0 (27.0-33.0) pg MCHC 34.1 (31.0-36.0) g/dl RDW 12.7 (11.0-16.0) % Plt Count 241 (160-400) X10*3/uL MPV 9.4 (9.4-12.4) fL Immature Gran % (Auto) 0.5 H (0.0-0.4) % Neut % (Auto) 86.1 H (45-73) % Lymph % (Auto) 6.6 L (20-40) % [place] % (Auto) 5.3 (2-11) % Eos % (Auto) 1.1 (0-4) % Baso % (Auto) 0.4 (0-2) % Lymph # (Auto) 0.8 L (1.2-4.9) X10*3/uL [place] # (Auto) 0.6 (0.1-1.2) X10*3/uL Eos # (Auto) 0.1 (0.0-0.4) X10*3/uL Baso # (Auto) 0.1 (0.0-0.2) X10*3/uL Abs Immat Gran (auto) 0.06 H (0.00-0.03) X10*3/uL Absolute Neuts (auto) 9.7 H (2.0-8.3) x10*3/uL Absolute Nucleated RBC 0.000 (0.0-0.012) X10*3/uL Nucleated RBC % (auto) 0.0 (0.0-0.2) /100WBC PT 11.7 (10.9-12.4) SEC INR 1.0 (0.9-1.1) APTT 21.2 L (26.7-34.1) SEC VBG pH 7.33 (7.32-7.43) VBG pCO2 41 mmHg VBG pO2 52 mmHg VBG HCO3 22 (22-26) mmol/L VBG O2 Saturation 78.0 % VBG Base Excess -3.3 mmol/L Sodium 142 (135-145) mmol/L Potassium 4.9 (3.3-5.1) mmol/L Chloride 111 H (96-108) mmol/L Carbon Dioxide 23 (22-29) mmol/L Anion Gap 13 (12-20) BUN 38 H (9-16) mg/dL Creatinine 1.85 H (0.5-1.4) mg/dL Estim Creat Clear Calc 26.9 Estimated GFR 35 POC Glucose 254 H (60-115) mg/dL Random Glucose 264 H (60-115) mg/dL Lactic Acid 2.1 H* (0.5-2.0) mmol/L Lactic Acid F/U @ 2Hr (0.5-2.0) mmol/L Lactic Acid F/U @ 4Hr (0.5-2.0) mmol/L Calcium 8.7 D (8.4-10.2) mg/dL Magnesium 2.2 (1.6-2.6) mg/dL Total Bilirubin 0.5 (0.0-1.0) mg/dL AST 26 (5-37) U/L ALT 18 (0-40) U/L Alkaline Phosphatase 68 (39-117) U/L Troponin I High Sens < 2.7 (<3.5-35.0) ng/L NT-Pro-B Natriuret Pep 446.3 H (<300) pg/mL Total Protein 7.0 (6.5-8.0) g/dL Albumin 4.1 (3.5-5.0) g/dL Urine Color Urine Appearance Urine pH (5.0-9.0) Ur Specific [place] (1.005-1.025) Urine Protein (Neg-Trace) mg/dL Urine Glucose (UA) (Negative) mg/dL Urine Ketones (Negative) mg/dL Urine Blood (Negative) Urine Nitrite (Negative) Ur Leukocyte Esterase (Negative) Urine RBC (0-2) /HPF Urine WBC (0-5) /HPF Urine WBC Clumps Ur Squamous Epith Cells (0-2) /HPF Urine Bacteria (None Seen) Hyaline Casts (0-2) /LPF Granular Casts COVID-19 (RHONDA) Negative (Negative) COVID-19 Clin Com See Note Influenza Type A (LYUBOV) Negative (Negative) Influenza Type B (LYUBOV) Negative (Negative) Influenza A & B Note See Note 05/13/25 05/13/25 05/13/25 Range/Units 14:33 16:52 19:56 WBC (4.8-10.8) X10*3/uL RBC (4.60-5.80) X10*6/uL Hgb (14.0-18.0) g/dl Hct (42.0-52.0) % MCV (80.0-98.0) fL MCH (27.0-33.0) pg MCHC (31.0-36.0) g/dl RDW (11.0-16.0) % Plt Count (160-400) X10*3/uL MPV (9.4-12.4) fL Immature Gran % (Auto) (0.0-0.4) % Neut % (Auto) (45-73) % Lymph % (Auto) (20-40) % [place] % (Auto) (2-11) % Eos % (Auto) (0-4) % Baso % (Auto) (0-2) % Lymph # (Auto) (1.2-4.9) X10*3/uL [place] # (Auto) (0.1-1.2) X10*3/uL Eos # (Auto) (0.0-0.4) X10*3/uL Baso # (Auto) (0.0-0.2) X10*3/uL Abs Immat Gran (auto) (0.00-0.03) X10*3/uL Absolute Neuts (auto) (2.0-8.3) x10*3/uL Absolute Nucleated RBC (0.0-0.012) X10*3/uL Nucleated RBC % (auto) (0.0-0.2) /100WBC PT (10.9-12.4) SEC INR (0.9-1.1) APTT (26.7-34.1) SEC VBG pH (7.32-7.43) VBG pCO2 mmHg VBG pO2 mmHg VBG HCO3 (22-26) mmol/L VBG O2 Saturation % VBG Base Excess mmol/L Sodium (135-145) mmol/L Potassium (3.3-5.1) mmol/L Chloride (96-108) mmol/L Carbon Dioxide (22-29) mmol/L Anion Gap (12-20) BUN (9-16) mg/dL Creatinine (0.5-1.4) mg/dL Estim Creat Clear Calc Estimated GFR POC Glucose (60-115) mg/dL Random Glucose (60-115) mg/dL Lactic Acid (0.5-2.0) mmol/L Lactic Acid F/U @ 2Hr 2.1 H* (0.5-2.0) mmol/L Lactic Acid F/U @ 4Hr 1.8 (0.5-2.0) mmol/L Calcium (8.4-10.2) mg/dL Magnesium (1.6-2.6) mg/dL Total Bilirubin (0.0-1.0) mg/dL AST (5-37) U/L ALT (0-40) U/L Alkaline Phosphatase (39-117) U/L Troponin I High Sens 2.7 (<3.5-35.0) ng/L NT-Pro-B Natriuret Pep (<300) pg/mL Total Protein (6.5-8.0) g/dL Albumin (3.5-5.0) g/dL Urine Color Yellow Urine Appearance Clear Urine pH 5.5 (5.0-9.0) Ur Specific [place] 1.025 (1.005-1.025) Urine Protein 30 (1+) H (Neg-Trace) mg/dL Urine Glucose (UA) Negative (Negative) mg/dL Urine Ketones Negative (Negative) mg/dL Urine Blood Small (1+) H (Negative) Urine Nitrite Negative (Negative) Ur Leukocyte Esterase Moderate (2+) H (Negative) Urine RBC 0-2 (0-2) /HPF Urine WBC 11-20 (0-5) /HPF Urine WBC Clumps Present Ur Squamous Epith Cells 0-2 (0-2) /HPF Urine Bacteria None Seen (None Seen) Hyaline Casts 0-2 (0-2) /LPF Granular Casts Present COVID-19 (RHONDA) (Negative) COVID-19 Clin Com Influenza Type A (LYUBOV) (Negative) Influenza Type B (LYUBOV) (Negative) Influenza A & B Note Independent Interpretation I performed an independent interpretation of an: Plain X-Ray and CT Scan Radiology Impression Discussion of test interpretation with radiology: I have reviewed the radiologist's reading. Critical Care Time Critical Care Time Critical Care Time: Yes Total Critical Care Time: 50 Attestation: Time is exclusive of separately billable procedures. Time includes: direct patient care, patient reassessment, coordination of patient care, interpretation of data (laboratory data, pulse oximetry, arterial blood gases and chest xrays), review of patient's medical records, medical consultation and documentation of patient care. Procedures excluded from critical care time: central intravenous line placement and electrocardiography. Discharge Plan Discharge Clinical Impression: Acute hypoxemic respiratory failure Pneumonia Qualifiers: Pneumonia type: due to unspecified organism Laterality: bilateral Lung location: lower lobe of lung Qualified Code(s): J18.9 - Pneumonia, unspecified organism Patient Disposition: Admitted As Inpatient Print Language: Armenian
--- NOTE | 2025-05-13 12:43 | PC.NURSE ---
Pt brought right back to ED from triage d/t hypoxa, bradycardia, unable to obtain BP in triage
[2025-05-13 12:57] LABS: Glucose, Whole Blood 254 mg/dL (60-115); Hematocrit 33.1 % (42.0-52.0); Hemoglobin 11.3 g/dl (14.0-18.0); Imm Gran Abs Auto 0.06 X10*3/uL (0.00-0.03); Imm Gran Pct Auto 0.5 % (0.0-0.4); Lymphocytes Absolute Auto 0.8 X10*3/uL (1.2-4.9); MANUAL DIFF FLAG NO; Mean Corpuscular HGB Conc 34.1 g/dl (31.0-36.0); Mean Corpuscular Hemoglobin 32.0 pg (27.0-33.0); Mean Corpuscular Volume 93.8 fL (80.0-98.0); NRBC Abs Auto 0.000 X10*3/uL (0.0-0.012); NRBC Pct Auto 0.0 /100WBC (0.0-0.2); Platelet Count 241 X10*3/uL (160-400); Red Blood Count 3.53 X10*6/uL (4.60-5.80); White Blood Count 11.3 X10*3/uL (4.8-10.8)
[2025-05-13 12:58] LABS: Venous Blood Gas Refer to POC result
[2025-05-13 12:59] LABS: VBG HCO3 22 mmol/L (22-26); VBG O2 % Saturation 78.0 %
[2025-05-13 13:03] LABS: INTERNATIONAL NORM RATIO 1.0 (0.9-1.1); Prothrombin Time 11.7 SEC (10.9-12.4)
[2025-05-13] MEDS: Lactated Ringers 1,000 ML 999 ML IV ×2 (13:08→18:10)
[2025-05-13 13:15] LABS: COVID-19 Test Negative (Negative); IDNOW Serial# 55D5AD1C
[2025-05-13 13:16] LABS: IDNOW Serial# 58CA691E; Influenza B2 Negative (Negative)
[2025-05-13 13:16] LABS: Alanine Aminotransferase 18 U/L (0-40); Albumin Level 4.1 g/dL (3.5-5.0); Alkaline Phosphatase 68 U/L (39-117); Anion Gap 13 (12-20); Aspartate Amino Transferase 26 U/L (5-37); Blood Urea Nitrogen 38 mg/dL (9-16); Calcium 8.7 mg/dL (8.4-10.2); Carbon Dioxide 23 mmol/L (22-29); Chloride 111 mmol/L (96-108); Creatinine Clr Calc Pharmacy 26.9; Estimated Glomerular Filt Rate 35; Magnesium 2.2 mg/dL (1.6-2.6); Potassium 4.9 mmol/L (3.3-5.1); Sodium 142 mmol/L (135-145); Total Protein 7.0 g/dL (6.5-8.0)
[2025-05-13 13:18] LABS: NT Pro B Type Natriuretic Pept 446.3 pg/mL (<300)
[2025-05-13 13:22] LABS: Troponin-I High Sensitivity < 2.7 ng/L (<3.5-35.0)
[2025-05-13 13:24] LABS: Partial Thromboplastin Time 21.2 SEC (26.7-34.1)
--- NOTE | 2025-05-13 14:00 | ECG_ITS ---
Test Reason : RUNNING EKG Blood Pressure : */* mmHG Vent. Rate : 73 BPM Atrial Rate : 73 BPM P-R Int : 252 ms QRS Dur : 140 ms QT Int : 418 ms P-R-T Axes : 18 -40 13 degrees QTcB Int : 460 ms Sinus rhythm with 1st degree A-V block Left axis deviation Right bundle branch block Abnormal ECG When compared with ECG of 13-May-2025 12:42, Vent. rate has increased Referred By: Margarette Tong Electronically Signed By: JORGE JOSHI MD
[2025-05-13 14:55] LABS: Reflex Lactate? Lactic Acid Added
[2025-05-13 15:00] LABS: Troponin-I High Sensitivity 2.7 ng/L (<3.5-35.0)
--- OUTSIDE RECORDS SUMMARY | 2025-05-13 16:11 | XMS_ITS | Patient Health Record ---
Author Organization [facility] [place] Address [address] [place] [address] Care Team Providers Care Air Intercept Controller Name Role Phone Oli Bernard Primary Care Provider Unav ailable Leanne Corbin Unavailable [phone] Allergies No Known Allergies Reason For Referral No Information Medications Medication SIG (Take, Route, Frequency, Duration) Notes Start Date End Date Status Atenolol 50 MG TAKE 1 TABLET BY MARVIN TH EVERY DAY FOR 90 DAYS Oral; Duration: 90 Days Active Finasteride 5 MG TAKE 1 TABLET DAILY ON MONDAY, MONDAY, AND MONDAY Oral; Duration: 84 Days Active Ciclopirox Olamine 0.77 % 1 application Externally Twice a day; Duration: 30 days Active amLODIPine Besylate 10 MG TAKE 1 TABLET BY MOUTH EVERY DAY FOR 90 DAYS Oral; Duration: 90 Days Active Lisinopril 40 MG TAKE 1 TABLET BY MARVIN TH DAILY FOR 90 DAYS Oral; Duration: 90 Days Active Immunizations Vaccine Route Administration [...] Ulcer of toe of right foot (disorder) ([id number]) Skin ulcer of toe of right foot, limited to breakdown of skin (L97.511) Active confirmed Nonapplicable Problem Ulcer of toe of left foot (disorder) ([id number]) Skin ulcer of toe of left foot, limited to breakdown of skin (L97.521) Active confirmed Nonapplicable Encounters Encounter Location Date Provider Diagnosis [facility] [address] [place] [address] 05/21/2024 Leanne Corbin Plan Of Treatment Pending Test Test Name Order Date 51092-Rapyfxvx Plate 01/18/2024 [id number] Plate Each Additional 39577- Debride <25 sq cm 02/05/2024 Insurance Providers Payer Name Payer Address Payer Phone Subscriber Number Group Number Insured Name Patient Relationship to Insured Coverage Start Date Coverage End Date [employer] Medicare [id number] [address] [address] [place] [address] [id number] Raad Antunez Self - patient is the insured Medical (General) History Medical History History ICD Code Arthritis Back pain Hiatal hernia Broken ankle Surgical History Surgery Date(Month/Year) back surgery 2003 appendectomy 1960
[2025-05-13 17:21] LABS: ~Lactic Acid-LAB USE ONLY 2.1 mmol/L (0.5-2.0)
[2025-05-13 18:56] LABS: Reflex Lactate? 2 Y
[2025-05-13 20:04] LABS: Appearance Urine Clear; Glucose Urine UA Negative (Negative); PH 5.5 (5.0-9.0); Specific Gravity - Urine 1.025 (1.005-1.025); UMIC TRIGGER UA YES
[2025-05-13 20:18] LABS: ~Lactic Acid-LAB USE ONLY 1.8 mmol/L (0.5-2.0)
--- NOTE | 2025-05-13 21:22 | PM.IMHP ---
History of Present Illness Date of Service: 05/13/25 Chief Complaint: Generalized weakness 84-year-old male with a past medical history of HTN, HLD, diabetes, BPH presented to the hospital today with a chief complaint of generalized weakness. Patient mentioned the past couple days he has been not feeling well. Has been having tiredness and exhaustion. Today after he got up in the morning he felt diaphoretic and short of breath; reports having cough. Denies any sputum production. Denies any sick contacts. Denies any chest pain or palpitations. Patient denies any nausea vomiting or diarrhea. Denies any urinary symptoms. Review of all other systems is negative except mentioned above ER course: Per ER team from patient on presentation noted to be short of breath, hypoxic to mid 80s; placed on supplemental oxygen; EKG nonischemic; troponin negative; on labs noted to have slightly elevated lactic acid and WBC. CT chest showed no evidence of PE but noted to have bilateral pneumonia-given ceftriaxone and azithromycin. Placed on supplemental oxygen. Patient initially had normal blood pressure but on follow-up patient had soft blood pressures. Given IV fluids-30 cc/kg. Lactic acidosis resolved. [facility] Medical History Pyuria Incomplete emptying of bladder Benign prostatic hyperplasia with lower urinary tract symptoms Nocturia BPH (benign prostatic hyperplasia) Family History Sister Diabetes Breast cancer Lung cancer Surgical History History of appendectomy History of back surgery Social History Household Members: Children Household Members Other:: a daughter [facility] Do you presently have visiting nurse or other home services: No Patient Tobacco Use Status: Never used Tobacco e-Cigarette/Vaping Use: Never Used Advance Directives Date on File: 05/13/25 service: No Current occupational status: retired Cognitive needs: No Hearing needs: No Vision needs: No Meds Allergies Allergy/AdvReac Type Severity Reaction Status Date / Time No Known Allergies Allergy Verified 05/13/25 12:43 Active Medications: Current Medications Acetaminophen (Acetaminophen 325 Mg Tablet) 650 mg PO Q6H PRN PRN Reason: Pain, Mild 1-3,fever,headache Albuterol/Ipratropium (Albuterol/Iprat 2.5/0.5mg 3 Ml Ampul.Neb) 3 ml INHALE Q4H PRN PRN Reason: Shortness of Breath/Wheezing Azithromycin (Azithromycin 500 Mg Tablet) 500 mg PO Q24H MELBA Benzonatate (Benzonatate 100 Mg Capsule) 100 mg PO TID PRN PRN Reason: Cough Calcium Carbonate (Calcium Carbonate 750 Mg Tab.Chew) 750 mg PO Q4H PRN PRN Reason: Heartburn Ceftriaxone Sodium (Ceftriaxone Sodium 1 Gm Vial) 1 gm IVPUSH Q24H MELBA Enoxaparin Sodium (Enoxaparin Sodium 30 Mg/0.3 Ml Syringe) 30 mg SUBCUT Q24H [facility] Sodium Chloride (Ns) 1,000 mls @ 999 mls/hr IV .Q1H1M [facility] Stop: 05/13/25 22:15 Piperacillin Sod/Tazobactam (Sod 4.5 gm/ Sodium Chloride) 100 mls @ 200 mls/hr IV ONCE ONE Stop: 05/13/25 21:38 Vancomycin HCl (Vancomycin/Ns) 2,000 mg in 500 mls @ 250 mls/hr IV ONCE ONE Stop: 05/13/25 23:08 Lactated Ringer's (Lr) 1,000 mls @ 100 mls/hr IVCONT .Q10H [facility] Magnesium Hydroxide (Milk Of Magnesia 30 Ml Oral.Susp) 30 ml PO DAILY PRN PRN Reason: Constipation Melatonin (Melatonin 3 Mg Tablet) 6 mg PO BEDTIME PRN PRN Reason: Insomnia Sodium Chloride (0.9 % Sodium Chloride Flush 3 Ml Syringe) 3 ml IVFLUSH QSHIFT [facility] Home Medications ?Medication ?Instructions ?Recorded ?Confirmed ?Last Taken ?Type acetaminophen 500 mg capsule 500 mg PO Q6H PRN Pain 06/25/21 05/14/25 Unknown History vit C 250 mg-vit E 90 mg-zinc 40 1 tab PO BID 05/14/25 05/14/25 05/13/25 History mg-copper 1 [id number] capsule (PreserVision AREDS-2) Physical Exam Vital Signs and Narrative: Vital Signs: Last Vital Signs Temp 98.9 F 05/13/25 21:07 Pulse 69 05/13/25 21:07 Resp 20 05/13/25 21:07 BP 87/42 L 05/13/25 21:07 Pulse Ox 93 05/13/25 21:07 O2 Del Method Nasal Cannula 05/13/25 21:07 O2 Flow Rate 2 05/13/25 21:07 BMI result Body Mass Index 27.2 Gen: Appears be in no acute distress. Speaks in full sentences HEENT: NCAT, Moist mucosa. Pulmonary: Coarse breath sounds CVS: Normal S1-S2 Abdomen: BS+, Soft, Nontender Extremities: Warm well perfused Neuro: Alert and awake. Results Labs 05/14/25 03:25 05/14/25 03:25 Labs: Laboratory Results - last 24 hr 05/13/25 05/13/25 05/13/25 12:48 12:50 12:55 MCV 93.8 MCH 32.0 MCHC 34.1 RDW 12.7 Plt Count 241 MPV 9.4 Immature Gran % (Auto) 0.5 H Neut % (Auto) 86.1 H Lymph % (Auto) 6.6 L [place] % (Auto) 5.3 Eos % (Auto) 1.1 Baso % (Auto) 0.4 Lymph # (Auto) 0.8 L [place] # (Auto) 0.6 Eos # (Auto) 0.1 Baso # (Auto) 0.1 Abs Immat Gran (auto) 0.06 H Absolute Neuts (auto) 9.7 H Absolute Nucleated RBC 0.000 Nucleated RBC % (auto) 0.0 PT 11.7 INR 1.0 APTT 21.2 L VBG pH 7.33 VBG pCO2 41 VBG pO2 52 VBG HCO3 22 VBG O2 Saturation 78.0 VBG Base Excess -3.3 Anion Gap 13 Estim Creat Clear Calc 26.9 Estimated GFR 35 POC Glucose 254 H Random Glucose 264 H Lactic Acid 2.1 H* Lactic Acid F/U @ 2Hr Lactic Acid F/U @ 4Hr Calcium 8.7 D Magnesium 2.2 Total Bilirubin 0.5 AST 26 ALT 18 Alkaline Phosphatase 68 Troponin I High Sens < 2.7 NT-Pro-B Natriuret Pep 446.3 H Total Protein 7.0 Albumin 4.1 Urine Color Urine Appearance Urine pH Ur Specific [place] Urine Protein Urine Glucose (UA) Urine Ketones Urine Blood Urine Nitrite Ur Leukocyte Esterase Urine RBC Urine WBC Urine WBC Clumps Ur Squamous Epith Cells Urine Bacteria Hyaline Casts Granular Casts COVID-19 (RHONDA) Negative COVID-19 Clin Com See Note Influenza Type A (LYUBOV) Negative Influenza Type B (LYUBOV) Negative Influenza A & B Note See Note 05/13/25 05/13/25 05/13/25 14:33 16:52 19:56 MCV MCH MCHC RDW Plt Count MPV Immature Gran % (Auto) Neut % (Auto) Lymph % (Auto) [place] % (Auto) Eos % (Auto) Baso % (Auto) Lymph # (Auto) [place] # (Auto) Eos # (Auto) Baso # (Auto) Abs Immat Gran (auto) Absolute Neuts (auto) Absolute Nucleated RBC Nucleated RBC % (auto) PT INR APTT VBG pH VBG pCO2 VBG pO2 VBG HCO3 VBG O2 Saturation VBG Base Excess Anion Gap Estim Creat Clear Calc Estimated GFR POC Glucose Random Glucose Lactic Acid Lactic Acid F/U @ 2Hr 2.1 H* Lactic Acid F/U @ 4Hr 1.8 Calcium Magnesium Total Bilirubin AST ALT Alkaline Phosphatase Troponin I High Sens 2.7 NT-Pro-B Natriuret Pep Total Protein Albumin Urine Color Yellow Urine Appearance Clear Urine pH 5.5 Ur Specific [place] 1.025 Urine Protein 30 (1+) H Urine Glucose (UA) Negative Urine Ketones Negative Urine Blood Small (1+) H Urine Nitrite Negative Ur Leukocyte Esterase Moderate (2+) H Urine RBC 0-2 Urine WBC 11-20 Urine WBC Clumps Present Ur Squamous Epith Cells 0-2 Urine Bacteria None Seen Hyaline Casts 0-2 Granular Casts Present COVID-19 (RHONDA) COVID-19 Clin Com Influenza Type A (LYUBOV) Influenza Type B (LYUBOV) Influenza A & B Note Imaging Radiologist's Impressions: Impressions Chest X-Ray 05/13/25 13:14 IMPRESSION: No acute disease. 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 Electronically signed by: Juan Carlos Valentine MD 05/13/2025 01:26 PM EDT Assessment and Plan (1) Pneumonia: Qualifiers: Laterality: bilateral Lung location: lower lobe of lung Pneumonia type: due to unspecified organism Qualified Code(s): J18.9 - Pneumonia, unspecified organism Status: Acute Plan 84-year-old male with a past medical history of HTN, HLD, diabetes, BPH presented to the hospital today with a chief complaint of generalized weakness. Noted to have bilateral pneumonia. Severe sepsis: Bilateral pneumonia: Patient currently mentating well. On supplemental oxygen. Breathing comfortable. Not in respiratory distress. Received 30 cc/kg IV fluids. Continue maintenance IV fluids. Hold home antihypertensives. Follow-up urine Legionella, strep pneumo, blood cultures. Continue ceftriaxone azithromycin DuoNebs p.r.n. Prem Marin Trending pulse oximetry when ready for discharge DRIVER LICENSE AGENT eval Aspiration precautions Hypertension: Patient blood pressure on the soft side. Hold home antihypertensives for now. Diabetes: Insulin sliding scale DVT prophylaxis: Lovenox Code status: Full code Quality Stroke Does the patient have a stroke diagnosis?: No VTE Prior VTE?: No VTE Risk Level:: Medical - moderate - high VTE Device Contraindication: Treatment Not Indicated VTE Drug Contraindication: N/A - Med Ordered
[2025-05-13] MEDS: Hydrocortisone Sod Succ/PF 100 MG VIAL IVPUSH (21:23)
[2025-05-13] MEDS: vancomycin/NS 2,000 MG/500 ML PLAST..BAG 250 MG IV (21:45)
[2025-05-13] MEDS: Lactated Ringers 1,000 ML 100 ML IVCONT (22:27)
[2025-05-14] VITALS (8 sets, daily range): BP systolic 108–178; BP diastolic 49–77; PULSE 57–81; RESP 13–22; TEMP 36.4–36.8; O2SAT 94–98; BMI 27.2
[2025-05-14 04:53] LABS: Hematocrit 29.5 % (42.0-52.0); Hemoglobin 9.9 g/dl (14.0-18.0); Imm Gran Abs Auto 0.10 X10*3/uL (0.00-0.03); Imm Gran Pct Auto 0.6 % (0.0-0.4); Lymphocytes Absolute Auto 0.5 X10*3/uL (1.2-4.9); MANUAL DIFF FLAG SCAN; Mean Corpuscular HGB Conc 33.6 g/dl (31.0-36.0); Mean Corpuscular Hemoglobin 31.4 pg (27.0-33.0); Mean Corpuscular Volume 93.7 fL (80.0-98.0); NRBC Abs Auto 0.000 X10*3/uL (0.0-0.012); NRBC Pct Auto 0.0 /100WBC (0.0-0.2); Platelet Count 210 X10*3/uL (160-400); Red Blood Count 3.15 X10*6/uL (4.60-5.80); SCAN SMEAR FLAG 1; White Blood Count 17.2 X10*3/uL (4.8-10.8)
[2025-05-14 05:13] LABS: Alanine Aminotransferase 14 U/L (0-40); Albumin Level 3.5 g/dL (3.5-5.0); Alkaline Phosphatase 48 U/L (39-117); Anion Gap 15 (12-20); Aspartate Amino Transferase 33 U/L (5-37); Blood Urea Nitrogen 31 mg/dL (9-16); Calcium 8.1 mg/dL (8.4-10.2); Carbon Dioxide 18 mmol/L (22-29); Chloride 113 mmol/L (96-108); Creatinine Clr Calc Pharmacy 30.9; Estimated Glomerular Filt Rate 41; Potassium 4.5 mmol/L (3.3-5.1); Sodium 141 mmol/L (135-145); Total Protein 6.0 g/dL (6.5-8.0)
[2025-05-14 07:28] LABS: Glucose, Whole Blood 131 mg/dL (60-115)
--- NOTE | 2025-05-14 09:31 | PHA.MEDREC ---
Addendum entered by Sukumar Hairston RPh 05/14/25 10:51: MED REC REVIEWED BY [facility] Original Note: Pharmacy Consult ? Medication Reconciliation Pharmacy has completed the medication reconciliation. Spoke with pt and he confirmed his medications. Pt confirmed he takes Amlodipine QD, Atenolol QD and Lisinopril QD but pt did was unsure about the dose of them and said he fills them at [facility] in [facility]; Spoke with [facility] and they confirmed Amlodipine 10mg QD, LF 02/24 for 90 days, Atenolol 50mg QD and Lisinopril 40mg QD, LF 05/30 for 90 days.
--- NOTE | 2025-05-14 10:09 | MHC.CM.PN ---
Met with patient in regards to discharge planning. Patient lives alone. However if he is ill his daughters will stay with him. Patient ambulates independently and had no services prior to coming to the hospital. Patient is currently on oxygen but does not use it at baseline. PCP verified. Copy of HCP verified to be on file. IMM explained and signed. Patient denies the need for STR or VNA at d/c. Patient's daughter, Xena, works on [employer] and will transport patient home when medically stable. PLUG STITCHER eval is pending. VNA may need to be revisited if rec by PLUG STITCHER. Continue to monitor for d/c needs.
[2025-05-14 11:34] LABS: Glucose, Whole Blood 98 mg/dL (60-115)
--- NOTE | 2025-05-14 13:18 | MHC.SLORD ---
Speech Language Pathology Order Status: Sitter at bedside, noted pt was finally sleeping, requested BOY'S ADVISER defer to assessment at later time as pt had not slept. Pt on regular consistency diet with thin liquids, tolerating without problems per sitter.
[2025-05-14] MEDS: Lactated Ringers 1,000 ML 100 ML IVCONT (14:20)
--- NOTE | 2025-05-14 14:24 | P.PNIM_ITS ---
Subjective Subjective Date of Service: 05/14/25 Interval History: ongoing cough and weakness Physical Exam 2 Exam: Exam: General: AO X 3, no acute distress Resp: crackles bilateral, no accessory muscles used CVS: S1,S2,RRR GI: soft, non tender, non distended Neuro: motor grossly intact, alert Psych: appropriate affect, appropriate insight Vital Signs: Vital Signs: Last Vital Signs Temp 98.2 F 05/14/25 08:14 Pulse 57 05/14/25 11:51 Resp 22 H 05/14/25 11:51 BP 141/59 H 05/14/25 11:51 Pulse Ox 98 05/14/25 11:51 O2 Del Method Nasal Cannula 05/14/25 11:51 O2 Flow Rate 2 05/14/25 11:51 BMI result Body Mass Index 27.2 Objective Data Active Medications Acetaminophen (Acetaminophen 325 Mg Tablet) 650 mg PO Q6H PRN PRN Reason: Pain, Mild 1-3,fever,headache Albuterol/Ipratropium (Albuterol/Iprat 2.5/0.5mg 3 Ml Ampul.Neb) 3 ml INHALE Q4H PRN PRN Reason: Shortness of Breath/Wheezing Amlodipine Besylate (Amlodipine Besylate 10 Mg Tablet) 10 mg PO DAILY [facility]; Protocol Atenolol (Atenolol 50 Mg Tablet) 50 mg PO DAILY [facility]; Protocol Azithromycin (Azithromycin 500 Mg Tablet) 500 mg PO Q24H [facility] Last Admin: 05/14/25 14:17 Dose: 500 mg Documented By: ADRIANA Benzonatate (Benzonatate 100 Mg Capsule) 100 mg PO TID PRN PRN Reason: Cough Calcium Carbonate (Calcium Carbonate 750 Mg Tab.Chew) 750 mg PO Q4H PRN PRN Reason: Heartburn Ceftriaxone Sodium (Ceftriaxone Sodium 1 Gm Vial) 1 gm IVPUSH Q24H [facility] Last Admin: 05/14/25 14:17 Dose: 1 gm Documented By: ADRIANA Dextrose (Dextrose 50 % 25 Gm/50 Ml Syringe) 25 gm IVPUSH Q15M PRN; Protocol PRN Reason: per Hypoglycemia Standing Ord. Enoxaparin Sodium (Enoxaparin Sodium 30 Mg/0.3 Ml Syringe) 30 mg SUBCUT Q24H [facility] Last Admin: 05/13/25 22:24 Dose: 30 mg Documented By: MATT Glucose (Glucose Gel 15 Gm Gel..Gram.) 15 gm PO Q15M PRN; Protocol PRN Reason: per Hypoglycemia Standing Ord. Lactated Ringer's (Lr) 1,000 mls @ 100 mls/hr IVCONT .Q10H [facility] Last Admin: 05/14/25 14:20 Dose: 100 mls/hr Documented By: ADRIANA Insulin Human Lispro (Insulin Lispro 100 Unit/Ml 3 Ml Vial) 0 unit SUBCUT QIDACHS [facility]; Protocol Last Admin: 05/14/25 12:35 Dose: Not Given Documented By: ADRIANA Non-Admin Reason: No Insulin Coverage Lisinopril (Lisinopril 40 Mg Tablet) 40 mg PO DAILY [facility]; Protocol Magnesium Hydroxide (Milk Of Magnesia 30 Ml Oral.Susp) 30 ml PO DAILY PRN PRN Reason: Constipation Melatonin (Melatonin 3 Mg Tablet) 6 mg PO BEDTIME PRN PRN Reason: Insomnia Sodium Chloride (0.9 % Sodium Chloride Flush 3 Ml Syringe) 3 ml IVFLUSH QSHIFT [facility] Last Admin: 05/14/25 09:03 Dose: Not Given Documented By: ADRIANA Non-Admin Reason: IV Running Labs 05/14/25 03:25 05/14/25 03:25 Labs: Laboratory Results - last 24 hr 05/13/25 05/13/25 05/13/25 14:33 16:52 19:56 MCV MCH MCHC RDW Plt Count MPV Immature Gran % (Auto) Neut % (Auto) Lymph % (Auto) [place] % (Auto) Eos % (Auto) Baso % (Auto) Lymph # (Auto) [place] # (Auto) Eos # (Auto) Baso # (Auto) Abs Immat Gran (auto) Absolute Neuts (auto) Absolute Nucleated RBC Nucleated RBC % (auto) Smear Tech's Comments Anion Gap Estim Creat Clear Calc Estimated GFR POC Glucose Random Glucose Lactic Acid F/U @ 2Hr 2.1 H* Lactic Acid F/U @ 4Hr 1.8 Calcium Total Bilirubin AST ALT Alkaline Phosphatase Troponin I High Sens 2.7 Total Protein Albumin Urine Color Yellow Urine Appearance Clear Urine pH 5.5 Ur Specific [place] 1.025 Urine Protein 30 (1+) H Urine Glucose (UA) Negative Urine Ketones Negative Urine Blood Small (1+) H Urine Nitrite Negative Ur Leukocyte Esterase Moderate (2+) H Urine RBC 0-2 Urine WBC 11-20 Urine WBC Clumps Present Ur Squamous Epith Cells 0-2 Urine Bacteria None Seen Hyaline Casts 0-2 Granular Casts Present 05/14/25 05/14/25 05/14/25 03:25 07:21 11:29 MCV 93.7 MCH 31.4 MCHC 33.6 RDW 12.6 Plt Count 210 MPV 10.1 Immature Gran % (Auto) 0.6 H Neut % (Auto) 91.2 H Lymph % (Auto) 2.8 L [place] % (Auto) 4.3 Eos % (Auto) 0.8 Baso % (Auto) 0.3 Lymph # (Auto) 0.5 L [place] # (Auto) 0.7 Eos # (Auto) 0.1 Baso # (Auto) 0.1 Abs Immat Gran (auto) 0.10 H Absolute Neuts (auto) 15.6 H Absolute Nucleated RBC 0.000 Nucleated RBC % (auto) 0.0 Smear Tech's Comments VERIFIED Anion Gap 15 Estim Creat Clear Calc 30.9 Estimated GFR 41 POC Glucose 131 H 98 Random Glucose 161 H Lactic Acid F/U @ 2Hr Lactic Acid F/U @ 4Hr Calcium 8.1 L D Total Bilirubin 0.8 AST 33 ALT 14 Alkaline Phosphatase 48 Troponin I High Sens Total Protein 6.0 L Albumin 3.5 Urine Color Urine Appearance Urine pH Ur Specific [place] Urine Protein Urine Glucose (UA) Urine Ketones Urine Blood Urine Nitrite Ur Leukocyte Esterase Urine RBC Urine WBC Urine WBC Clumps Ur Squamous Epith Cells Urine Bacteria Hyaline Casts Granular Casts Assessment and Plan (1) Pneumonia: Status: Acute Plan 84M PMH diabetes, hypertension, hyperlipidemia, BPH presented with weakness Sepsis and acute hypoxic respiratory failure due to aspiration pneumonia Suspected chronic dysphagia RN OBGYN eval Continue ceftriaxone azithromycin Wean O2, attempted to remove oxygen and was saturating high 80s on room air Hypertension Continue amlodipine, atenolol Diabetes Insulin DVT prophylaxis Lovenox Full code reason for continued hospitalization: IV antibiotics for aspiration pneumonia, speech eval, weaning O2 Quality Stroke Does the patient have a stroke diagnosis?: No VTE Prior VTE?: No VTE Risk Level:: Medical - moderate - high VTE Device Contraindication: Treatment Not Indicated VTE Drug Contraindication: N/A - Med Ordered
[2025-05-14] MEDS: 0.9 % Sodium Chloride Flush 3 ML SYRINGE IVFLUSH (16:22)
[2025-05-14 16:50] LABS: Glucose, Whole Blood 125 mg/dL (60-115)
[2025-05-14 20:23] LABS: Glucose, Whole Blood 117 mg/dL (60-115)
[2025-05-15] VITALS (8 sets, daily range): BP systolic 138–179; BP diastolic 74–99; PULSE 76–144; RESP 17–20; TEMP 36.3–37.9; O2SAT 94–98
[2025-05-15 06:45] LABS: Hematocrit 34.5 % (42.0-52.0); Hemoglobin 11.5 g/dl (14.0-18.0); Mean Corpuscular HGB Conc 33.3 g/dl (31.0-36.0); Mean Corpuscular Hemoglobin 31.3 pg (27.0-33.0); Mean Corpuscular Volume 93.8 fL (80.0-98.0); NRBC Abs Auto 0.000 X10*3/uL (0.0-0.012); NRBC Pct Auto 0.0 /100WBC (0.0-0.2); Platelet Count 241 X10*3/uL (160-400); Red Blood Count 3.68 X10*6/uL (4.60-5.80); White Blood Count 14.4 X10*3/uL (4.8-10.8)
[2025-05-15 06:55] LABS: Anion Gap 13 (12-20); Blood Urea Nitrogen 26 mg/dL (9-16); Carbon Dioxide 22 mmol/L (22-29); Chloride 110 mmol/L (96-108); Creatinine Clr Calc Pharmacy 38.0; Estimated Glomerular Filt Rate 52; Potassium 4.1 mmol/L (3.3-5.1); Sodium 141 mmol/L (135-145)
[2025-05-15 07:12] LABS: Calcium 9.2 mg/dL (8.4-10.2)
[2025-05-15 07:30] LABS: Glucose, Whole Blood 153 mg/dL (60-115)
[2025-05-15] MEDS: 0.9 % Sodium Chloride Flush 3 ML SYRINGE IVFLUSH (08:27)
--- NOTE | 2025-05-15 09:50 | P.PNIM_ITS ---
Subjective Subjective Date of Service: 05/15/25 Interval History: confused, agitated Physical Exam 2 Exam: Exam: General: AO X 3, agitated Resp: Crackles bilateral, no accessory muscles used CVS: S1,S2,RRR GI: soft, non tender, non distended Neuro: motor grossly intact, alert Psych: patient appears acutely delirious, he is able to express basic understanding of his condition and treatment plan, but is having paranoid delusions and is occasionally non sensical and tangental with agitation. Vital Signs: Vital Signs: Last Vital Signs Temp 99.3 F 05/15/25 07:43 Pulse 144 H 05/15/25 08:53 Resp 20 05/15/25 07:43 BP 155/89 H 05/15/25 08:26 Pulse Ox 94 05/15/25 07:43 O2 Del Method Nasal Cannula 05/15/25 07:43 O2 Flow Rate 2 05/15/25 07:43 FiO2 97 05/15/25 04:00 BMI result Body Mass Index 27.2 Objective Data Active Medications Acetaminophen (Acetaminophen 325 Mg Tablet) 650 mg PO Q6H PRN PRN Reason: Pain, Mild 1-3,fever,headache Albuterol/Ipratropium (Albuterol/Iprat 2.5/0.5mg 3 Ml Ampul.Neb) 3 ml INHALE Q4H PRN PRN Reason: Shortness of Breath/Wheezing Amlodipine Besylate (Amlodipine Besylate 10 Mg Tablet) 10 mg PO DAILY [facility]; Protocol Last Admin: 05/15/25 08:26 Dose: 10 mg Documented By: JUDI Atenolol (Atenolol 50 Mg Tablet) 50 mg PO DAILY [facility]; Protocol Last Admin: 05/15/25 08:30 Dose: 50 mg Documented By: JUDI Azithromycin (Azithromycin 500 Mg Tablet) 500 mg PO Q24H [facility] Last Admin: 05/14/25 14:17 Dose: 500 mg Documented By: ADRIANA Benzonatate (Benzonatate 100 Mg Capsule) 100 mg PO TID PRN PRN Reason: Cough Calcium Carbonate (Calcium Carbonate 750 Mg Tab.Chew) 750 mg PO Q4H PRN PRN Reason: Heartburn Ceftriaxone Sodium (Ceftriaxone Sodium 1 Gm Vial) 1 gm IVPUSH Q24H [facility] Last Admin: 05/14/25 14:17 Dose: 1 gm Documented By: ADRIANA Dextrose (Dextrose 50 % 25 Gm/50 Ml Syringe) 25 gm IVPUSH Q15M PRN; Protocol PRN Reason: per Hypoglycemia Standing Ord. Enoxaparin Sodium (Enoxaparin Sodium 40 Mg/0.4 Ml Syringe) 40 mg SUBCUT Q24H [facility] Glucose (Glucose Gel 15 Gm Gel..Gram.) 15 gm PO Q15M PRN; Protocol PRN Reason: per Hypoglycemia Standing Ord. Insulin Human Lispro (Insulin Lispro 100 Unit/Ml 3 Ml Vial) 0 unit SUBCUT QIDACHS [facility]; Protocol Last Admin: 05/15/25 08:26 Dose: 2 unit Documented By: JUDI Lisinopril (Lisinopril 40 Mg Tablet) 40 mg PO DAILY [facility]; Protocol Last Admin: 05/15/25 08:26 Dose: 40 mg Documented By: JUID Magnesium Hydroxide (Milk Of Magnesia 30 Ml Oral.Susp) 30 ml PO DAILY PRN PRN Reason: Constipation Melatonin (Melatonin 3 Mg Tablet) 6 mg PO BEDTIME PRN PRN Reason: Insomnia Sodium Chloride (0.9 % Sodium Chloride Flush 3 Ml Syringe) 3 ml IVFLUSH QSHIFT [facility] Last Admin: 05/15/25 08:27 Dose: 3 ml Documented By: JUDI Labs 05/15/25 06:16 05/15/25 06:16 Labs: Laboratory Results - last 24 hr 05/14/25 05/14/25 05/14/25 11:29 16:44 20:15 MCV MCH MCHC RDW Plt Count MPV Absolute Nucleated RBC Nucleated RBC % (auto) Anion Gap Estim Creat Clear Calc Estimated GFR POC Glucose 98 125 H 117 H Random Glucose Calcium 05/15/25 05/15/25 06:16 07:20 MCV 93.8 MCH 31.3 MCHC 33.3 RDW 12.6 Plt Count 241 MPV 9.8 Absolute Nucleated RBC 0.000 Nucleated RBC % (auto) 0.0 Anion Gap 13 Estim Creat Clear Calc 38.0 Estimated GFR 52 POC Glucose 153 H Random Glucose 151 H Calcium 9.2 D Microbiology Microbiology Results: Microbiology 05/13/25 13:21 Blood Culture - Preliminary Blood - Venous No growth after 24 hours. 05/13/25 12:48 Blood Culture - Preliminary Blood - Venous No growth after 24 hours. 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
[2025-05-15 11:16] LABS: Glucose, Whole Blood 123 mg/dL (60-115)
--- NOTE | 2025-05-15 13:43 | HO.WOUND ---
Wound Consult: Initial 84 yr old male admitted to [facility] on 05/13/25- See progress notes and H&P for detailed history. Wound consult placed for buttocks/coccyx. Patient agreeable to assessment and photo documentation. Buttock/coccyx Etiology: MASD/chronic moisture in gluteal fold Wound Bed: intact pink/purple blanching, moist skin mirrored in gluteal fold Drainage / Odor: none Teena wound: ? No Induration, Fluctuance or Warmth noted Pain: none Goals of Treatment: ? offloading, moisture barrier with triad back Etiology: skin tear Measurements: 1cm x 1.5cm x 0.1cm Wound Bed: moist pink Drainage / Odor: scant serous, no odor? Teena wound: ? No Induration, Fluctuance or Warmth noted Pain: none Goals of Treatment: ? moist healing/protection with foam Recommendations: 1. Turn and Reposition every 2 hours and as needed for patient comfort. Use pillows or wedges to support off loading positions. 2. Off Load all bony prominences with use of pillows and heel boots if needed. Apply Preventative foams where needed. 3. Monitor for incontinence and moisture control, use barrier creams when needed for prevention and treatment. 4. Provide adequate and supplemental nutrition. 5. Order or Continue low air loss mattress. 6. When applicable maintain blood glucose levels per Providers order. Back skin tear: cleanse with saline, pat dry, apply skin prep teena wound, apply foam dressing, change every 3 days and PRN Buttocks MASD: Off Load Pressure with Q2 hr turns and use of pillows - Cleanse with PH balance spray or wipes, pat dry. ?Apply thin layer of Triad to wound bed - only pat and dab no scrub and rub when soiling occurs. Reapply thin layer PRN after each episode of incontinence. Re-consult wound care Nurse for wound deterioration or wound changes.
--- NOTE | 2025-05-15 14:51 | MHC.SL.SWA ---
Speech Pathologist Impression: Risk of Aspiration Due to: Mild to moderate oral pharyngeal dysphagia, impulsivity. Dysphasia Diet Status: Liquid Consistency and Strategies for Safe Swallow: Liquid Intake Recommendation: Oberon Thick Liquid Intake Strategies: Solid Food Consistency: Dietary Recommendations: Grnd/Mech Altered (NDD2) Additional Modifications to Solid Foods: Oral Medication Intake: Crushed with Puree Please contact the pharmacy regarding appropriate crushable or liquid drug formulations that are available whenever modified delivery is recommended. Compensatory Strategies and Precautions to be Taken for Safe Swallow: Supervision While Eating and Drinking for Safe Swallow: Direct Supervision (1:1) Foods to Avoid: Mixed consistencies, tough difficult to chew solids Swallowing Recommended Treatments: Recommendation for Speech: Inpatient Speech Therapy Comment: Patient presents with mild to moderate oral pharyngeal dysphagia, secondary to reduced dentition, and difficulty swallowing thin liquids (wet voice, throat clearing). Patient reports a history of dysphagia, however it is unclear from his reports if problem is esophageal or pharyngeal. Patient reported he was put on thickener but has not been using this at home. Patient presents also as quite confused and impulsive. Recommend DOWNGRADE diet to Ground/Mechanical (NDD2) with Oberon Thick liquids, pills crushed in puree. CHANGE HOUSE ATTENDANT will continue to follow as inpatient. MD, RD, RN notified of recommendations by secure text, CHANGE HOUSE ATTENDANT adjusted diet in expanse. Frequency/Duration: Date Range for Service Req: Timeline to reassess: Carpenter [employer]en [employer] Erecting Clinican/Clinical Fellow: No Supervisory Statement: I have reviewed and agree with the student/clinical fellow's documentation: N/A Speech Language Pathologist: Kirstin Lozada M.A., [facility]-CHANGE HOUSE ATTENDANT
[2025-05-15 16:06] LABS: Glucose, Whole Blood 110 mg/dL (60-115)
[2025-05-15 20:16] LABS: Glucose, Whole Blood 187 mg/dL (60-115)
[2025-05-16] VITALS (8 sets, daily range): BP systolic 149–183; BP diastolic 67–86; PULSE 78–91; RESP 15–20; TEMP 36.6–37.7; O2SAT 92–98
[2025-05-16 06:52] LABS: Hematocrit 34.8 % (42.0-52.0); Hemoglobin 11.8 g/dl (14.0-18.0); Mean Corpuscular HGB Conc 33.9 g/dl (31.0-36.0); Mean Corpuscular Hemoglobin 31.9 pg (27.0-33.0); Mean Corpuscular Volume 94.1 fL (80.0-98.0); NRBC Abs Auto 0.000 X10*3/uL (0.0-0.012); NRBC Pct Auto 0.0 /100WBC (0.0-0.2); Platelet Count 257 X10*3/uL (160-400); Red Blood Count 3.70 X10*6/uL (4.60-5.80); White Blood Count 13.3 X10*3/uL (4.8-10.8)
[2025-05-16 07:06] LABS: Anion Gap 15 (12-20); Blood Urea Nitrogen 35 mg/dL (9-16); Calcium 9.0 mg/dL (8.4-10.2); Carbon Dioxide 21 mmol/L (22-29); Chloride 112 mmol/L (96-108); Creatinine Clr Calc Pharmacy 31.5; Estimated Glomerular Filt Rate 42; Magnesium 1.9 mg/dL (1.6-2.6); Potassium 3.7 mmol/L (3.3-5.1); Sodium 144 mmol/L (135-145)
[2025-05-16 08:21] LABS: Glucose, Whole Blood 128 mg/dL (60-115)
[2025-05-16 09:00] LABS: Appearance Urine Clear; Glucose Urine UA Negative (Negative); PH 5.5 (5.0-9.0); Specific Gravity - Urine 1.020 (1.005-1.025); UMIC TRIGGER UACC YES
[2025-05-16 09:16] LABS: UACC Culture Trigger YES
--- NOTE | 2025-05-16 10:27 | HO.PM.IMPN ---
Subjective Subjective Date of Service: 05/16/25 Interval History: still confused Physical Exam Exam: Exam: General: AO X 3, no acute distress Resp: Crackles bilateral, no accessory muscles used CVS: S1,S2,RRR GI: soft, non tender, non distended Neuro: motor grossly intact, alert Psych: patient appears acutely delirious, he is able to express basic understanding of his condition and treatment plan, but is having paranoid delusions and is occasionally non sensical and tangental Vital Signs: Vital Signs: Last Vital Signs Temp 99.8 F 05/16/25 08:00 Pulse 89 05/16/25 08:00 Resp 16 05/16/25 08:00 BP 177/82 H 05/16/25 08:00 Pulse Ox 94 05/16/25 08:00 O2 Del Method Room Air 05/16/25 08:00 O2 Flow Rate 4 05/16/25 03:03 FiO2 97 05/15/25 04:00 BMI result Body Mass Index 27.2 Objective Data Active Medications Acetaminophen (Acetaminophen 325 Mg Tablet) 650 mg PO Q6H PRN PRN Reason: Pain, Mild 1-3,fever,headache Last Admin: 05/15/25 13:13 Dose: 650 mg Documented By: JUDI Albuterol/Ipratropium (Albuterol/Iprat 2.5/0.5mg 3 Ml Ampul.Neb) 3 ml INHALE Q4H PRN PRN Reason: Shortness of Breath/Wheezing Amlodipine Besylate (Amlodipine Besylate 10 Mg Tablet) 10 mg PO DAILY [facility]; Protocol Last Admin: 05/15/25 08:26 Dose: 10 mg Documented By: JUDI Atenolol (Atenolol 50 Mg Tablet) 50 mg PO DAILY [facility]; Protocol Last Admin: 05/15/25 08:30 Dose: 50 mg Documented By: JUDI Azithromycin (Azithromycin 500 Mg Tablet) 500 mg PO Q24H [facility] Last Admin: 05/15/25 13:13 Dose: 500 mg Documented By: JUDI Benzonatate (Benzonatate 100 Mg Capsule) 100 mg PO TID PRN PRN Reason: Cough Calcium Carbonate (Calcium Carbonate 750 Mg Tab.Chew) 750 mg PO Q4H PRN PRN Reason: Heartburn Ceftriaxone Sodium (Ceftriaxone Sodium 1 Gm Vial) 1 gm IVPUSH Q24H [facility] Last Admin: 05/15/25 13:13 Dose: 1 gm Documented By: JUDI Dextrose (Dextrose 50 % 25 Gm/50 Ml Syringe) 25 gm IVPUSH Q15M PRN; Protocol PRN Reason: per Hypoglycemia Standing Ord. Enoxaparin Sodium (Enoxaparin Sodium 40 Mg/0.4 Ml Syringe) 40 mg SUBCUT Q24H [facility] Last Admin: 05/15/25 23:24 Dose: Not Given Documented By: RASHIDA Non-Admin Reason: Patient Refused Glucose (Glucose Gel 15 Gm Gel..Gram.) 15 gm PO Q15M PRN; Protocol PRN Reason: per Hypoglycemia Standing Ord. Insulin Human Lispro (Insulin Lispro 100 Unit/Ml 3 Ml Vial) 0 unit SUBCUT QIDACHS [facility]; Protocol Last Admin: 05/16/25 07:40 Dose: Not Given Documented By: REKHA Non-Admin Reason: No Insulin Coverage Lisinopril (Lisinopril 40 Mg Tablet) 40 mg PO DAILY [facility]; Protocol Last Admin: 05/15/25 08:26 Dose: 40 mg Documented By: JUDI Magnesium Hydroxide (Milk Of Magnesia 30 Ml Oral.Susp) 30 ml PO DAILY PRN PRN Reason: Constipation Melatonin (Melatonin 3 Mg Tablet) 6 mg PO BEDTIME PRN PRN Reason: Insomnia Sodium Chloride (0.9 % Sodium Chloride Flush 3 Ml Syringe) 3 ml IVFLUSH QSHIFT [facility] Last Admin: 05/16/25 01:21 Dose: Not Given Documented By: RASHIDA Non-Admin Reason: Patient Asleep Labs 05/16/25 06:27 05/16/25 06:27 Labs: Laboratory Results - last 24 hr 05/15/25 05/15/25 05/15/25 10:52 15:58 20:04 MCV MCH MCHC RDW Plt Count MPV Absolute Nucleated RBC Nucleated RBC % (auto) Anion Gap Estim Creat Clear Calc Estimated GFR POC Glucose 123 H 110 187 H Random Glucose Calcium Magnesium Urine Color Urine Appearance Urine pH Ur Specific Maryneal Urine Protein Urine Glucose (UA) Urine Ketones Urine Blood Urine Nitrite Ur Leukocyte Esterase Urine RBC Urine WBC Ur Squamous Epith Cells Urine Bacteria Hyaline Casts 05/16/25 05/16/25 05/16/25 06:27 07:39 08:38 MCV 94.1 MCH 31.9 MCHC 33.9 RDW 12.4 Plt Count 257 MPV 9.6 Absolute Nucleated RBC 0.000 Nucleated RBC % (auto) 0.0 Anion Gap 15 Estim Creat Clear Calc 31.5 Estimated GFR 42 POC Glucose 128 H Random Glucose 131 H Calcium 9.0 Magnesium 1.9 Urine Color Yellow Urine Appearance Clear Urine pH 5.5 Ur Specific Maryneal 1.020 Urine Protein 100 (2+) H Urine Glucose (UA) Negative Urine Ketones Trace Urine Blood Moderate (2+) H Urine Nitrite Negative Ur Leukocyte Esterase Small (1+) H Urine RBC 0-2 Urine WBC 6-10 H Ur Squamous Epith Cells 0-2 Urine Bacteria None Seen Hyaline Casts 0-2 Microbiology Microbiology Results: Microbiology 05/13/25 13:21 Blood Culture - Preliminary Blood - Venous No growth after 48 hours. 05/13/25 12:48 Blood Culture - Preliminary Blood - Venous No growth after 48 hours. Assessment and Plan (1) Pneumonia: Status: Acute Plan 84M PMH diabetes, hypertension, hyperlipidemia, BPH presented with weakness Sepsis and acute hypoxic respiratory failure due to aspiration pneumonia Suspected chronic dysphagia [employer] eval - ndd2 solids, nectar thick liquids Continue ceftriaxone azithromycin Wean O2 - now on room air this morning acute metabolic encephalopathy due to hospital delerium orienting strategies deconditioning pt recommending rehab Hypertension Continue amlodipine, atenolol Diabetes Insulin DVT prophylaxis Lovenox Full code reason for continued hospitalization: IV antibiotics for aspiration pneumonia, monitoring off o2 Quality Stroke Does the patient have a stroke diagnosis?: No VTE Prior VTE?: No VTE Risk Level:: Medical - moderate - high VTE Device Contraindication: Treatment Not Indicated VTE Drug Contraindication: N/A - Med Ordered
--- NOTE | 2025-05-16 11:03 | MHC.CM.PN ---
CM met with Patient at bedside to discuss PT's recommendation for [facility]. Patient is not interested in going to [facility] but he is agreeable to the [facility]. CM will continue to follow.
[2025-05-16] MEDS: 0.9 % Sodium Chloride Flush 3 ML SYRINGE IVFLUSH ×2 (11:04→21:15)
[2025-05-16 11:27] LABS: Glucose, Whole Blood 153 mg/dL (60-115)
--- NOTE | 2025-05-16 12:53 | MHC.CM.PN ---
Addendum entered by Clare Lozano 05/16/25 14:34: Per request, a referral has been sent to [facility]. Addendum entered by Clare Lozano 05/16/25 14:05: Per Patient/Daughter's request, a referral has been made to [facility]. Addendum entered by Clare Lozano 05/16/25 13:53: [facility] does not accept Patient's insurance; Referral made to second choice facility?[facility]. CM will follow. Original Note: CM met with Patient and Daughter/HCP/X[place] and per that conversation, a referral will be made to [facility]. CM will follow.
--- NOTE | 2025-05-16 13:25 | MHC.SL.SWA ---
Speech Pathologist Impression: Risk of Aspiration, Chronic Oropharyngeal Dysphagia, hx noncompliance Dysphasia Diet Status:No Change Liquid Consistency and Strategies for Safe Swallow: Liquid Intake Recommendation: Sunsites Thick Liquid Intake Strategies: Small Sips No Straws Double Swallow Solid Food Consistency: Dietary Recommendations: Grnd/Mech Altered (NDD2) Oral Medication Intake: Crushed with Puree Please contact the pharmacy regarding appropriate crushable or liquid drug formulations that are available whenever modified delivery is recommended. Compensatory Strategies and Precautions to be Taken for Safe Swallow: Sitting Upright (90 deg) Double Swallow No Straw Small Bites and Sips Alternate Liquids/Solids Rate of Ingestion Change Supervision While Eating and Drinking for Safe Swallow: Direct Supervision (1:1) Foods to Avoid: Mixed consistencies, tough difficult to chew solids Swallowing Recommended Treatments: Compens. Strategy Educat. Recommendation for Speech: Inpatient Speech Therapy Comment: Patient presents with mild to moderate oral pharyngeal dysphagia, secondary to reduced dentition, and difficulty swallowing thin liquids (wet voice, throat clearing). Patient reports a history of dysphagia, however it is unclear from his reports if problem is esophageal or pharyngeal. Patient reported he was put on thickener but has not been using this at home. Patient presents also as quite confused and impulsive. Recommend DOWNGRADE diet to Ground/Mechanical (NDD2) with Sunsites Thick liquids, pills crushed in puree. SCHOOL BUS DRIVER/CUSTODIAN will continue to follow as inpatient. Frequency/Duration: Date Range for Service Req: Timeline to reassess: Conveyor Man Clinican/Clinical Fellow: No Supervisory Statement: I have reviewed and agree with the student/clinical fellow's documentation: N/A Speech Language Pathologist: Sera Hanna M.A., [facility]-SCHOOL BUS DRIVER/CUSTODIAN
[2025-05-16 15:22] LABS: Glucose, Whole Blood 87 mg/dL (60-115)
[2025-05-16 20:36] LABS: Glucose, Whole Blood 126 mg/dL (60-115)
[2025-05-17] VITALS (7 sets, daily range): BP systolic 133–166; BP diastolic 62–88; PULSE 58–94; RESP 18–20; TEMP 36.1–37.9; O2SAT 92–96
[2025-05-17 01:40] LABS: Glucose, Whole Blood 118 mg/dL (60-115)
[2025-05-17 07:09] LABS: Glucose, Whole Blood 102 mg/dL (60-115)
[2025-05-17 08:11] LABS: Hematocrit 33.3 % (42.0-52.0); Hemoglobin 11.0 g/dl (14.0-18.0); Mean Corpuscular HGB Conc 33.0 g/dl (31.0-36.0); Mean Corpuscular Hemoglobin 31.0 pg (27.0-33.0); Mean Corpuscular Volume 93.8 fL (80.0-98.0); NRBC Abs Auto 0.000 X10*3/uL (0.0-0.012); NRBC Pct Auto 0.0 /100WBC (0.0-0.2); Platelet Count 283 X10*3/uL (160-400); Red Blood Count 3.55 X10*6/uL (4.60-5.80); White Blood Count 12.1 X10*3/uL (4.8-10.8)
[2025-05-17] MEDS: 0.9 % Sodium Chloride Flush 3 ML SYRINGE IVFLUSH (08:34)
[2025-05-17 08:37] LABS: Anion Gap 17 (12-20); Blood Urea Nitrogen 47 mg/dL (9-16); Calcium 8.8 mg/dL (8.4-10.2); Carbon Dioxide 19 mmol/L (22-29); Chloride 115 mmol/L (96-108); Creatinine Clr Calc Pharmacy 27.7; Estimated Glomerular Filt Rate 36; Potassium 3.8 mmol/L (3.3-5.1); Sodium 147 mmol/L (135-145)
[2025-05-17] MEDS: Dextrose 5 % and 0.45 % NaCl 1,000 ML 100 ML IVCONT ×2 (10:17→20:31)
--- NOTE | 2025-05-17 10:34 | HO.PM.IMPN ---
Subjective Subjective Date of Service: 05/17/25 Interval History: still confused Physical Exam Exam: Exam: General: AO X 3, no acute distress Resp: Crackles bilateral, no accessory muscles used CVS: S1,S2,RRR GI: soft, non tender, non distended Neuro: motor grossly intact, alert Psych: patient appears acutely delirious, he is able to express basic understanding of his condition and treatment plan, but is having paranoid delusions and is occasionally non sensical and tangental Vital Signs: Vital Signs: Last Vital Signs Temp 100.2 F 05/17/25 08:00 Pulse 87 05/17/25 08:00 Resp 18 05/17/25 08:00 BP 134/85 05/17/25 08:00 Pulse Ox 93 05/17/25 08:00 O2 Del Method Room Air 05/17/25 08:00 O2 Flow Rate 4 05/16/25 03:03 FiO2 97 05/15/25 04:00 BMI result Body Mass Index 27.2 Objective Data Active Medications Acetaminophen (Acetaminophen 325 Mg Tablet) 650 mg PO Q6H PRN PRN Reason: Pain, Mild 1-3,fever,headache Last Admin: 05/15/25 13:13 Dose: 650 mg Documented By: JUDI Albuterol/Ipratropium (Albuterol/Iprat 2.5/0.5mg 3 Ml Ampul.Neb) 3 ml INHALE Q4H PRN PRN Reason: Shortness of Breath/Wheezing Amlodipine Besylate (Amlodipine Besylate 10 Mg Tablet) 10 mg PO DAILY [facility]; Protocol Last Admin: 05/17/25 08:33 Dose: 10 mg Documented By: HINA Atenolol (Atenolol 50 Mg Tablet) 50 mg PO DAILY [facility]; Protocol Last Admin: 05/17/25 08:34 Dose: 50 mg Documented By: HINA Azithromycin (Azithromycin 500 Mg Tablet) 500 mg PO Q24H [facility] Last Admin: 05/16/25 12:41 Dose: 500 mg Documented By: REKHA Benzonatate (Benzonatate 100 Mg Capsule) 100 mg PO TID PRN PRN Reason: Cough Calcium Carbonate (Calcium Carbonate 750 Mg Tab.Chew) 750 mg PO Q4H PRN PRN Reason: Heartburn Ceftriaxone Sodium (Ceftriaxone Sodium 1 Gm Vial) 1 gm IVPUSH Q24H [facility] Last Admin: 05/16/25 12:41 Dose: 1 gm Documented By: REKHA Dextrose (Dextrose 50 % 25 Gm/50 Ml Syringe) 25 gm IVPUSH Q15M PRN; Protocol PRN Reason: per Hypoglycemia Standing Ord. Enoxaparin Sodium (Enoxaparin Sodium 40 Mg/0.4 Ml Syringe) 40 mg SUBCUT Q24H [facility] Last Admin: 05/16/25 21:14 Dose: 40 mg Documented By: MATHIEU Glucose (Glucose Gel 15 Gm Gel..Gram.) 15 gm PO Q15M PRN; Protocol PRN Reason: per Hypoglycemia Standing Ord. Dextrose/Sodium Chloride (D51/2ns) 1,000 mls @ 100 mls/hr IVCONT .Q10H [facility] Last Admin: 05/17/25 10:17 Dose: 100 mls/hr Documented By: HINA Insulin Human Lispro (Insulin Lispro 100 Unit/Ml 3 Ml Vial) 0 unit SUBCUT QIDACHS [facility]; Protocol Last Admin: 05/17/25 07:29 Dose: Not Given Documented By: HINA Non-Admin Reason: No Insulin Coverage Lisinopril (Lisinopril 40 Mg Tablet) 40 mg PO DAILY [facility]; Protocol Last Admin: 05/17/25 08:34 Dose: 40 mg Documented By: HINA Magnesium Hydroxide (Milk Of Magnesia 30 Ml Oral.Susp) 30 ml PO DAILY PRN PRN Reason: Constipation Melatonin (Melatonin 3 Mg Tablet) 6 mg PO BEDTIME PRN PRN Reason: Insomnia Last Admin: 05/16/25 21:19 Dose: 6 mg Documented By: MATHIEU Sodium Chloride (0.9 % Sodium Chloride Flush 3 Ml Syringe) 3 ml IVFLUSH QSHIFT [facility] Last Admin: 05/17/25 08:34 Dose: 3 ml Documented By: HINA Labs 05/17/25 07:21 05/17/25 07:21 Labs: Laboratory Results - last 24 hr 05/16/25 05/16/25 05/16/25 11:22 15:16 20:33 MCV MCH MCHC RDW Plt Count MPV Absolute Nucleated RBC Nucleated RBC % (auto) Anion Gap Estim Creat Clear Calc Estimated GFR POC Glucose 153 H 87 126 H Random Glucose Calcium 05/17/25 05/17/25 05/17/25 01:36 07:06 07:21 MCV 93.8 MCH 31.0 MCHC 33.0 RDW 12.3 Plt Count 283 MPV 9.9 Absolute Nucleated RBC 0.000 Nucleated RBC % (auto) 0.0 Anion Gap 17 Estim Creat Clear Calc 27.7 Estimated GFR 36 POC Glucose 118 H 102 Random Glucose 113 Calcium 8.8 Assessment and Plan (1) Pneumonia: Status: Acute Plan 84M PMH diabetes, hypertension, hyperlipidemia, BPH presented with weakness Sepsis and acute hypoxic respiratory failure due to aspiration pneumonia Suspected chronic dysphagia [employer] eval - ndd2 solids, nectar thick liquids Continue ceftriaxone azithromycin now on room air acute metabolic encephalopathy due to hospital delerium orienting strategies persistent - will check cth deconditioning pt recommending rehab Hypertension Continue amlodipine, atenolol Diabetes Insulin DVT prophylaxis Lovenox Full code reason for continued hospitalization: IV antibiotics for aspiration pneumonia, ams Quality Stroke Does the patient have a stroke diagnosis?: No VTE Prior VTE?: No VTE Risk Level:: Medical - moderate - high VTE Device Contraindication: Treatment Not Indicated VTE Drug Contraindication: N/A - Med Ordered
[2025-05-17 11:44] LABS: Glucose, Whole Blood 128 mg/dL (60-115)
[2025-05-17 16:30] LABS: Glucose, Whole Blood 143 mg/dL (60-115)
[2025-05-17 20:28] LABS: Glucose, Whole Blood 130 mg/dL (60-115)
[2025-05-18] VITALS (7 sets, daily range): BP systolic 123–177; BP diastolic 57–74; PULSE 50–90; RESP 12–20; TEMP 36.3–37.6; O2SAT 93–98
[2025-05-18] MEDS: Dextrose 5 % and 0.45 % NaCl 1,000 ML 100 ML IVCONT ×2 (05:49→15:36)
[2025-05-18 07:38] LABS: Glucose, Whole Blood 128 mg/dL (60-115)
[2025-05-18 07:47] LABS: Hematocrit 32.4 % (42.0-52.0); Hemoglobin 10.8 g/dl (14.0-18.0); Mean Corpuscular HGB Conc 33.3 g/dl (31.0-36.0); Mean Corpuscular Hemoglobin 32.0 pg (27.0-33.0); Mean Corpuscular Volume 95.9 fL (80.0-98.0); NRBC Abs Auto 0.000 X10*3/uL (0.0-0.012); NRBC Pct Auto 0.0 /100WBC (0.0-0.2); Platelet Count 248 X10*3/uL (160-400); Red Blood Count 3.38 X10*6/uL (4.60-5.80); White Blood Count 12.1 X10*3/uL (4.8-10.8)
[2025-05-18 08:00] LABS: Anion Gap 12 (12-20); Blood Urea Nitrogen 35 mg/dL (9-16); Calcium 8.3 mg/dL (8.4-10.2); Carbon Dioxide 22 mmol/L (22-29); Chloride 115 mmol/L (96-108); Creatinine Clr Calc Pharmacy 36.4; Estimated Glomerular Filt Rate 49; Potassium 3.6 mmol/L (3.3-5.1); Sodium 145 mmol/L (135-145)
--- NOTE | 2025-05-18 09:09 | P.PNIM_ITS ---
Subjective Subjective Date of Service: 05/18/25 Interval History: still confused Physical Exam 2 Exam: Exam: General: AO X 3, no acute distress Resp: Crackles bilateral, no accessory muscles used CVS: S1,S2,RRR GI: soft, non tender, non distended Neuro: motor grossly intact, alert Psych: delerium appears resolved Vital Signs: Vital Signs: Last Vital Signs Temp 99.6 F 05/18/25 07:37 Pulse 62 05/18/25 07:37 Resp 18 05/18/25 07:37 BP 156/70 H 05/18/25 07:37 Pulse Ox 97 05/18/25 07:37 O2 Del Method Room Air 05/18/25 07:37 O2 Flow Rate 4 05/16/25 03:03 FiO2 97 05/15/25 04:00 BMI result Body Mass Index 27.2 Objective Data Active Medications Acetaminophen (Acetaminophen 325 Mg Tablet) 650 mg PO Q6H PRN PRN Reason: Pain, Mild 1-3,fever,headache Last Admin: 05/15/25 13:13 Dose: 650 mg Documented By: JUDI Albuterol/Ipratropium (Albuterol/Iprat 2.5/0.5mg 3 Ml Ampul.Neb) 3 ml INHALE Q4H PRN PRN Reason: Shortness of Breath/Wheezing Amlodipine Besylate (Amlodipine Besylate 10 Mg Tablet) 10 mg PO DAILY [facility]; Protocol Last Admin: 05/18/25 07:59 Dose: 10 mg Documented By: HINA Atenolol (Atenolol 50 Mg Tablet) 50 mg PO DAILY [facility]; Protocol Last Admin: 05/18/25 07:58 Dose: 50 mg Documented By: HINA Azithromycin (Azithromycin 500 Mg Tablet) 500 mg PO Q24H [facility] Last Admin: 05/17/25 14:51 Dose: Not Given Documented By: LD Non-Admin Reason: Patient Refused Benzonatate (Benzonatate 100 Mg Capsule) 100 mg PO TID PRN PRN Reason: Cough Calcium Carbonate (Calcium Carbonate 750 Mg Tab.Chew) 750 mg PO Q4H PRN PRN Reason: Heartburn Ceftriaxone Sodium (Ceftriaxone Sodium 1 Gm Vial) 1 gm IVPUSH Q24H [facility] Last Admin: 05/17/25 14:52 Dose: Not Given Documented By: LD Non-Admin Reason: Patient Refused Dextrose (Dextrose 50 % 25 Gm/50 Ml Syringe) 25 gm IVPUSH Q15M PRN; Protocol PRN Reason: per Hypoglycemia Standing Ord. Enoxaparin Sodium (Enoxaparin Sodium 30 Mg/0.3 Ml Syringe) 30 mg SUBCUT Q24H [facility] Last Admin: 05/17/25 21:15 Dose: 30 mg Documented By: SHADI Glucose (Glucose Gel 15 Gm Gel..Gram.) 15 gm PO Q15M PRN; Protocol PRN Reason: per Hypoglycemia Standing Ord. Dextrose/Sodium Chloride (D51/2ns) 1,000 mls @ 100 mls/hr IVCONT .Q10H [facility] Last Admin: 05/18/25 05:49 Dose: 100 mls/hr Documented By: SHADI Insulin Human Lispro (Insulin Lispro 100 Unit/Ml 3 Ml Vial) 0 unit SUBCUT QIDACHS [facility]; Protocol Last Admin: 05/18/25 07:51 Dose: Not Given Documented By: HINA Non-Admin Reason: No Insulin Coverage Lisinopril (Lisinopril 40 Mg Tablet) 40 mg PO DAILY [facility]; Protocol Last Admin: 05/18/25 07:59 Dose: 40 mg Documented By: HINA Magnesium Hydroxide (Milk Of Magnesia 30 Ml Oral.Susp) 30 ml PO DAILY PRN PRN Reason: Constipation Melatonin (Melatonin 3 Mg Tablet) 6 mg PO BEDTIME PRN PRN Reason: Insomnia Last Admin: 05/16/25 21:19 Dose: 6 mg Documented By: MATHIEU Sodium Chloride (0.9 % Sodium Chloride Flush 3 Ml Syringe) 3 ml IVFLUSH QSHIFT [facility] Last Admin: 05/18/25 08:06 Dose: Not Given Documented By: HINA Non-Admin Reason: IV Running Labs 05/18/25 07:09 05/18/25 07:09 Labs: Laboratory Results - last 24 hr 05/17/25 05/17/25 05/17/25 11:40 16:23 20:20 MCV MCH MCHC RDW Plt Count MPV Absolute Nucleated RBC Nucleated RBC % (auto) Anion Gap Estim Creat Clear Calc Estimated GFR POC Glucose 128 H 143 H 130 H Random Glucose Calcium 05/18/25 05/18/25 07:09 07:35 MCV 95.9 MCH 32.0 MCHC 33.3 RDW 12.4 Plt Count 248 MPV 9.9 Absolute Nucleated RBC 0.000 Nucleated RBC % (auto) 0.0 Anion Gap 12 Estim Creat Clear Calc 36.4 Estimated GFR 49 POC Glucose 128 H Random Glucose 144 H Calcium 8.3 L Microbiology Microbiology Results: Microbiology 05/16/25 Unknown Urine Culture - Final Urine clean catch - Clean Catch Midstream No growth. Assessment and Plan (1) Pneumonia: Status: Acute Plan 84M PMH diabetes, hypertension, hyperlipidemia, BPH presented with weakness Sepsis and acute hypoxic respiratory failure due to aspiration pneumonia Suspected chronic dysphagia [employer] COMP[employer] eval - ndd2 solids, nectar thick liquids Continue ceftriaxone azithromycin now on room air acute metabolic encephalopathy due to hospital delerium orienting strategies cth negative deconditioning pt recommending rehab Hypertension Continue amlodipine, atenolol Diabetes Insulin DVT prophylaxis Lovenox Full code reason for continued hospitalization: dispo planning Quality Stroke Does the patient have a stroke diagnosis?: No VTE Prior VTE?: No VTE Risk Level:: Medical - moderate - high VTE Device Contraindication: Treatment Not Indicated VTE Drug Contraindication: N/A - Med Ordered
[2025-05-18 11:40] LABS: Glucose, Whole Blood 144 mg/dL (60-115)
[2025-05-18 15:30] LABS: Glucose, Whole Blood 161 mg/dL (60-115)
[2025-05-18 20:48] LABS: Glucose, Whole Blood 108 mg/dL (60-115)
[2025-05-19 00:19] LABS: Strep Pneumo Ag urine Not Detected (Not Detected)
[2025-05-19] MEDS: Dextrose 5 % and 0.45 % NaCl 1,000 ML 100 ML IVCONT (01:21)
[2025-05-19 03:28] VITALS: BP 158/70; PULSE 52; RESP 12; TEMP 36.8; O2SAT 96
[2025-05-19 07:16] LABS: Glucose, Whole Blood 143 mg/dL (60-115)
[2025-05-19 07:42] VITALS: BP 177/75; PULSE 60; RESP 20; TEMP 36.8; O2SAT 98
[2025-05-19 07:55] LABS: Hematocrit 34.3 % (42.0-52.0); Hemoglobin 11.2 g/dl (14.0-18.0); Mean Corpuscular HGB Conc 32.7 g/dl (31.0-36.0); Mean Corpuscular Hemoglobin 31.5 pg (27.0-33.0); Mean Corpuscular Volume 96.6 fL (80.0-98.0); NRBC Abs Auto 0.000 X10*3/uL (0.0-0.012); NRBC Pct Auto 0.0 /100WBC (0.0-0.2); Platelet Count 197 X10*3/uL (160-400); Red Blood Count 3.55 X10*6/uL (4.60-5.80); White Blood Count 12.3 X10*3/uL (4.8-10.8)
[2025-05-19 08:09] LABS: Anion Gap 11 (12-20); Blood Urea Nitrogen 23 mg/dL (9-16); Calcium 8.1 mg/dL (8.4-10.2); Carbon Dioxide 23 mmol/L (22-29); Chloride 112 mmol/L (96-108); Creatinine Clr Calc Pharmacy 43.0; Estimated Glomerular Filt Rate 60; Potassium 3.6 mmol/L (3.3-5.1); Sodium 142 mmol/L (135-145)
--- NOTE | 2025-05-19 09:34 | HO.PM.IMPN ---
Subjective Subjective Date of Service: 05/19/25 Interval History: cough improved Physical Exam Exam: Exam: General: AO X 3, no acute distress Resp: Crackles bilateral, no accessory muscles used CVS: S1,S2,RRR GI: soft, non tender, non distended Neuro: motor grossly intact, alert Psych: delerium appears resolved Vital Signs: Vital Signs: Last Vital Signs Temp 98.2 F 05/19/25 07:42 Pulse 60 05/19/25 07:42 Resp 20 05/19/25 07:42 BP 177/75 H 05/19/25 07:42 Pulse Ox 98 05/19/25 07:42 O2 Del Method Nasal Cannula 05/19/25 07:42 O2 Flow Rate 1 05/19/25 07:42 FiO2 97 05/15/25 04:00 BMI result Body Mass Index 27.2 Objective Data Active Medications Acetaminophen (Acetaminophen 325 Mg Tablet) 650 mg PO Q6H PRN PRN Reason: Pain, Mild 1-3,fever,headache Last Admin: 05/15/25 13:13 Dose: 650 mg Documented By: JUDI Albuterol/Ipratropium (Albuterol/Iprat 2.5/0.5mg 3 Ml Ampul.Neb) 3 ml INHALE Q4H PRN PRN Reason: Shortness of Breath/Wheezing Amlodipine Besylate (Amlodipine Besylate 10 Mg Tablet) 10 mg PO DAILY [facility]; Protocol Last Admin: 05/19/25 08:31 Dose: 10 mg Documented By: DEBBIE Atenolol (Atenolol 50 Mg Tablet) 50 mg PO DAILY [facility]; Protocol Last Admin: 05/19/25 08:01 Dose: Not Given Documented By: DEBBIE Non-Admin Reason: bradycardia, MD aware Azithromycin (Azithromycin 500 Mg Tablet) 500 mg PO Q24H MELBA Last Admin: 05/18/25 13:32 Dose: 500 mg Documented By: HINA Benzonatate (Benzonatate 100 Mg Capsule) 100 mg PO TID PRN PRN Reason: Cough Calcium Carbonate (Calcium Carbonate 750 Mg Tab.Chew) 750 mg PO Q4H PRN PRN Reason: Heartburn Ceftriaxone Sodium (Ceftriaxone Sodium 1 Gm Vial) 1 gm IVPUSH Q24H [facility] Last Admin: 05/18/25 13:27 Dose: 1 gm Documented By: HINA Dextrose (Dextrose 50 % 25 Gm/50 Ml Syringe) 25 gm IVPUSH Q15M PRN; Protocol PRN Reason: per Hypoglycemia Standing Ord. Enoxaparin Sodium (Enoxaparin Sodium 30 Mg/0.3 Ml Syringe) 30 mg SUBCUT Q24H [facility] Last Admin: 05/18/25 20:58 Dose: 30 mg Documented By: SHADI Glucose (Glucose Gel 15 Gm Gel..Gram.) 15 gm PO Q15M PRN; Protocol PRN Reason: per Hypoglycemia Standing Ord. Insulin Human Lispro (Insulin Lispro 100 Unit/Ml 3 Ml Vial) 0 unit SUBCUT QIDACHS [facility]; Protocol Last Admin: 05/19/25 07:35 Dose: Not Given Documented By: DEBBIE Non-Admin Reason: No Insulin Coverage Lisinopril (Lisinopril 40 Mg Tablet) 40 mg PO DAILY [facility]; Protocol Last Admin: 05/19/25 08:31 Dose: 40 mg Documented By: DEBBIE Magnesium Hydroxide (Milk Of Magnesia 30 Ml Oral.Susp) 30 ml PO DAILY PRN PRN Reason: Constipation Melatonin (Melatonin 3 Mg Tablet) 6 mg PO BEDTIME PRN PRN Reason: Insomnia Last Admin: 05/16/25 21:19 Dose: 6 mg Documented By: MATHIEU Sodium Chloride (0.9 % Sodium Chloride Flush 3 Ml Syringe) 3 ml IVFLUSH QSHIFT [facility] Last Admin: 05/19/25 07:43 Dose: Not Given Documented By: DEBBIE Non-Admin Reason: IV Running Labs 05/19/25 07:18 05/19/25 07:18 Labs: Laboratory Results - last 24 hr 05/13/25 05/18/25 05/18/25 19:56 11:36 15:24 MCV MCH MCHC RDW Plt Count MPV Absolute Nucleated RBC Nucleated RBC % (auto) Anion Gap Estim Creat Clear Calc Estimated GFR POC Glucose 144 H 161 H Random Glucose Calcium Ur Strep pneumoniae Ag Not Detected 05/18/25 05/19/25 05/19/25 20:41 06:53 07:18 MCV 96.6 MCH 31.5 MCHC 32.7 RDW 12.3 Plt Count 197 MPV 10.7 Absolute Nucleated RBC 0.000 Nucleated RBC % (auto) 0.0 Anion Gap 11 L Estim Creat Clear Calc 43.0 Estimated GFR 60 POC Glucose 108 143 H Random Glucose 150 H Calcium 8.1 L Ur Strep pneumoniae Ag Microbiology Microbiology Results: Microbiology 05/13/25 13:21 Blood Culture - Final Blood - Venous No growth after 5 days. 05/13/25 12:48 Blood Culture - Final Blood - Venous No growth after 5 days. Assessment and Plan (1) Pneumonia: Status: Acute Plan 84M PMH diabetes, hypertension, hyperlipidemia, BPH presented with weakness Sepsis and acute hypoxic respiratory failure due to aspiration pneumonia Suspected chronic dysphagia CHERRY DIPPER eval - ndd2 solids, nectar thick liquids Continue ceftriaxone azithromycin now on room air acute metabolic encephalopathy due to hospital delerium orienting strategies cth negative appears resolved rodney, acute hypernatremia resolved with ivf deconditioning pt recommending rehab Hypertension Continue amlodipine, atenolol Diabetes Insulin DVT prophylaxis Lovenox Full code reason for continued hospitalization: dispo planning Quality Stroke Does the patient have a stroke diagnosis?: No VTE Prior VTE?: No VTE Risk Level:: Medical - moderate - high VTE Device Contraindication: Treatment Not Indicated VTE Drug Contraindication: N/A - Med Ordered
--- NOTE | 2025-05-19 09:37 | MHC.CM.PN ---
CM MET WITH DAUGHTER TO DISCUSS DCP SHE LEFT A MESSAGE YESTERDAY REQUESTING A REFERRAL TO [facility] SHE WAS INFORMED PT WAS NOT ACCEPTED AND DOES NOT MEET AR CRITERIA A LIST OF [facility] CONTRACTED SNF WAS PROVIDED SHE REPORTS [facility] IS PREFERRED FOLLOWED BY LYNN ELLIOTT OF NOTE: [facility] HAD DECLINED DUE TO LACK OF BED, HOWEVER PT HAS BEEN STUCK HERE FOR SEVERAL DAYS DUE TO LACK OF AUTH, THEREFORE DAUGHTER IS HOPING BEDS HAVE OPENED. LYNN ELLIOTT IS FOLLOWING, BUT HAS NOT OFFERED A BED
[2025-05-19 11:35] LABS: Glucose, Whole Blood 166 mg/dL (60-115)
[2025-05-19 11:36] VITALS: BP 138/79; PULSE 73; RESP 17; TEMP 36.3; O2SAT 95
--- NOTE | 2025-05-19 12:36 | MHC.SL.SWA ---
Speech Pathologist Impression: Risk of Aspiration, Oropharyngeal Dysphagia Dysphasia Diet Status:No Change, provide 1:1 assist Liquid Consistency and Strategies for Safe Swallow: Liquid Intake Recommendation: Qulin Thick Liquid Intake Strategies: Small Sips No Straws Double Swallow Solid Food Consistency: Dietary Recommendations: Grnd/Mech Altered (NDD2) Oral Medication Intake: Crushed with Puree Please contact the pharmacy regarding appropriate crushable or liquid drug formulations that are available whenever modified delivery is recommended. Compensatory Strategies and Precautions to be Taken for Safe Swallow: Sitting Upright (90 deg) Double Swallow No Straw Small Bites and Sips Alternate Liquids/Solids Rate of Ingestion Change Supervision While Eating and Drinking for Safe Swallow: Total Assistance (1:1) Foods to Avoid: Mixed consistencies, tough difficult to chew solids Swallowing Recommended Treatments: Compens. Strategy Educat. Recommendation for Speech: Inpatient Speech Therapy Comment: Patient presents with mild to moderate oral pharyngeal dysphagia, secondary to reduced dentition, and difficulty swallowing thin liquids (wet voice, throat clearing). Patient reports a history of dysphagia, however it is unclear from his reports if problem is esophageal or pharyngeal. Patient reported he was put on thickener but has not been using this at home. Patient presents also as quite confused and impulsive. GROCERY CLERK will continue to follow as inpatient. Frequency/Duration: Date Range for Service Req: Timeline to reassess: Dealership General Manager Clinican/Clinical Fellow: No Supervisory Statement: I have reviewed and agree with the student/clinical fellow's documentation: N/A Speech Language Pathologist: Sera Hanna M.A., [facility]-GROCERY CLERK
[2025-05-19] MEDS: 0.9 % Sodium Chloride Flush 3 ML SYRINGE IVFLUSH ×2 (14:38→21:41)
[2025-05-19 16:00] VITALS: BP 137/62; PULSE 66; RESP 18; TEMP 36.8; O2SAT 95
[2025-05-19 16:10] LABS: Glucose, Whole Blood 101 mg/dL (60-115)
[2025-05-19 19:31] VITALS: BP 149/67; PULSE 68; RESP 18; TEMP 37; O2SAT 97
[2025-05-19 20:06] LABS: Glucose, Whole Blood 140 mg/dL (60-115)
[2025-05-19 20:53] LABS: Mycoplasma Pneumoniae - IgG 1.22 (<=0.90); Mycoplasma Pneumoniae - IgM 88 U/mL (<770)
[2025-05-19 23:31] VITALS: BP 137/63; PULSE 69; RESP 18; TEMP 36.7; O2SAT 94
[2025-05-20 03:26] VITALS: BP 142/66; PULSE 70; RESP 18; TEMP 37.2; O2SAT 93
[2025-05-20 07:00] VITALS: BP 142/66; PULSE 66; RESP 18; TEMP 36.4; O2SAT 93
[2025-05-20 07:00] LABS: Glucose, Whole Blood 108 mg/dL (60-115)
[2025-05-20] MEDS: 0.9 % Sodium Chloride Flush 3 ML SYRINGE IVFLUSH ×3 (08:28→21:44)
--- NOTE | 2025-05-20 09:45 | MHC.CM.PN ---
INDIGO has sent today's PT PN to S[facility] and Patient is NOW medically cleared for dc so [facility]ui will initiate insurance auth this morning. INDIGO will follow.
--- NOTE | 2025-05-20 09:56 | P.PNIM_ITS ---
Subjective Subjective Date of Service: 05/20/25 Interval History: cough improved Physical Exam 2 Exam: Exam: General: AO X 3, no acute distress Resp: Crackles bilateral, no accessory muscles used CVS: S1,S2,RRR GI: soft, non tender, non distended Neuro: motor grossly intact, alert Psych: delerium appears resolved Vital Signs: Vital Signs: Last Vital Signs Temp 97.5 F 05/20/25 07:00 Pulse 66 05/20/25 07:00 Resp 18 05/20/25 07:00 BP 142/66 H 05/20/25 07:00 Pulse Ox 93 05/20/25 07:00 O2 Del Method Room Air 05/20/25 07:00 O2 Flow Rate 1 05/19/25 07:42 FiO2 97 05/15/25 04:00 BMI result Body Mass Index 27.2 Objective Data Active Medications Acetaminophen (Acetaminophen 325 Mg Tablet) 650 mg PO Q6H PRN PRN Reason: Pain, Mild 1-3,fever,headache Last Admin: 05/15/25 13:13 Dose: 650 mg Documented By: JUDI Albuterol/Ipratropium (Albuterol/Iprat 2.5/0.5mg 3 Ml Ampul.Neb) 3 ml INHALE Q4H PRN PRN Reason: Shortness of Breath/Wheezing Amlodipine Besylate (Amlodipine Besylate 10 Mg Tablet) 10 mg PO DAILY [facility]; Protocol Last Admin: 05/20/25 08:28 Dose: 10 mg Documented By: SAMMY Atenolol (Atenolol 50 Mg Tablet) 50 mg PO DAILY [facility]; Protocol Last Admin: 05/20/25 08:26 Dose: 50 mg Documented By: SAMMY Azithromycin (Azithromycin 500 Mg Tablet) 500 mg PO Q24H MELBA Last Admin: 05/19/25 14:27 Dose: 500 mg Documented By: DEBBIE Benzonatate (Benzonatate 100 Mg Capsule) 100 mg PO TID PRN PRN Reason: Cough Calcium Carbonate (Calcium Carbonate 750 Mg Tab.Chew) 750 mg PO Q4H PRN PRN Reason: Heartburn Last Admin: 05/19/25 13:59 Dose: 750 mg Documented By: ARNOLD Ceftriaxone Sodium (Ceftriaxone Sodium 1 Gm Vial) 1 gm IVPUSH Q24H MELBA Last Admin: 05/19/25 14:27 Dose: 1 gm Documented By: DEBBIE Dextrose (Dextrose 50 % 25 Gm/50 Ml Syringe) 25 gm IVPUSH Q15M PRN; Protocol PRN Reason: per Hypoglycemia Standing Ord. Enoxaparin Sodium (Enoxaparin Sodium 40 Mg/0.4 Ml Syringe) 40 mg SUBCUT Q24H [facility] Last Admin: 05/19/25 21:40 Dose: 40 mg Documented By: MATHIEU Glucose (Glucose Gel 15 Gm Gel..Gram.) 15 gm PO Q15M PRN; Protocol PRN Reason: per Hypoglycemia Standing Ord. Insulin Human Lispro (Insulin Lispro 100 Unit/Ml 3 Ml Vial) 0 unit SUBCUT QIDACHS [facility]; Protocol Last Admin: 05/20/25 07:38 Dose: Not Given Documented By: SAMMY Non-Admin Reason: No Insulin Coverage Lisinopril (Lisinopril 40 Mg Tablet) 40 mg PO DAILY [facility]; Protocol Last Admin: 05/20/25 08:28 Dose: 40 mg Documented By: SAMMY Magnesium Hydroxide (Milk Of Magnesia 30 Ml Oral.Susp) 30 ml PO DAILY PRN PRN Reason: Constipation Melatonin (Melatonin 3 Mg Tablet) 6 mg PO BEDTIME PRN PRN Reason: Insomnia Last Admin: 05/16/25 21:19 Dose: 6 mg Documented By: MATHIEU Sodium Chloride (0.9 % Sodium Chloride Flush 3 Ml Syringe) 3 ml IVFLUSH QSHIFT [facility] Last Admin: 05/20/25 08:28 Dose: 3 ml Documented By: SAMMY Labs 05/19/25 07:18 05/19/25 07:18 Labs: Laboratory Results - last 24 hr 05/14/25 05/19/25 05/19/25 00:20 11:31 16:04 POC Glucose 166 H 101 Mycoplasma pneumon IgG 1.22 H Mycoplasma pneumon IgM 88 05/19/25 05/20/25 20:03 06:54 POC Glucose 140 H 108 Mycoplasma pneumon IgG Mycoplasma pneumon IgM Assessment and Plan (1) Pneumonia: Status: Acute Plan 84M PMH diabetes, hypertension, hyperlipidemia, BPH presented with weakness Sepsis and acute hypoxic respiratory failure due to aspiration pneumonia Suspected chronic dysphagia UTILITIES AND MAINTENANCE SUPERVISOR eval - ndd2 solids, nectar thick liquids Continue ceftriaxone azithromycin day 02/10 now on room air acute metabolic encephalopathy due to hospital delerium orienting strategies cth negative appears resolved rodney, acute hypernatremia resolved with ivf deconditioning pt recommending rehab Hypertension Continue amlodipine, atenolol Diabetes Insulin DVT prophylaxis Lovenox Full code reason for continued hospitalization: dispo planning Quality Stroke Does the patient have a stroke diagnosis?: No VTE Prior VTE?: No VTE Risk Level:: Medical - moderate - high VTE Device Contraindication: Treatment Not Indicated VTE Drug Contraindication: N/A - Med Ordered
--- NOTE | 2025-05-20 10:22 | P.DS_ITS ---
DS: Providers Provider Date of Service: 05/20/25 Date of admission: 05/13/25 21:09 Date of discharge: 05/20/25 Primary care physician: BIJAN Chapa- Consults: 05/15/25 00:34 Consult to Wound Care Routine Reason for consultation: coccyx w/ blanchable redness/maceration. masd DS: Diagnosis Discharge Diagnosis (1) Pneumonia: Status: Acute DS: Summary Hospital Course Hospital Course: from initial hpi: 84-year-old male with a past medical history of HTN, HLD, diabetes, BPH presented to the hospital today with a chief complaint of generalized weakness. Patient mentioned the past couple days he has been not feeling well. Has been having tiredness and exhaustion. Today after he got up in the morning he felt diaphoretic and short of breath; reports having cough. Denies any sputum production. Denies any sick contacts. Denies any chest pain or palpitations. Patient denies any nausea vomiting or diarrhea. Denies any urinary symptoms. Review of all other systems is negative except mentioned above ER course: Per ER team from patient on presentation noted to be short of breath, hypoxic to mid 80s; placed on supplemental oxygen; EKG nonischemic; troponin negative; on labs noted to have slightly elevated lactic acid and WBC. CT chest showed no evidence of PE but noted to have bilateral pneumonia-given ceftriaxone and azithromycin. Placed on supplemental oxygen. Patient initially had normal blood pressure but on follow-up patient had soft blood pressures. Given IV fluids-30 cc/kg. Lactic acidosis resolved. hospital course: Patient was admitted for sepsis and acute hypoxic respiratory failure due to aspiration pneumonia due to chronic dysphagia. Was seen by speech who recommended mechanically soft solids with nectar thick liquids and continuing aspiration precautions. Was treated with 7 day course of ceftriaxone azithromycin. Sepsis resolved and was weaned to room air. Cough improved. Course complicated by acute metabolic encephalopathy due to hospital delirium. Orienting strategies were applied, CT head was negative but did show baseline age-related changes. Mental status slowly improved to baseline. Course co mplicated by acute kidney injury and acute hypernatremia which resolved with IV fluids. For deconditioning was seen by physical therapy recommended short-term rehab to which patient will be discharged he is expected to require less than 30 days. For hypertension was continued on amlodipine and atenolol. For diabetes continued on insulin. Time Attestation Discharge Coordination Time (in mins): 33 Quality: Safe Use of Opioids Does Pt have an Active Cancer Diagnosis on the Problem List?: No Quality: Stroke Does the patient have a stroke diagnosis?: No Physical Exam Exam: Exam: General: AO X 3, no acute distress Resp: Crackles bilateral, no accessory muscles used CVS: S1,S2,RRR GI: soft, non tender, non distended Neuro: motor grossly intact, alert Psych: delerium appears resolved Vital Signs: Vital Signs: Last Vital Signs Temp 97.5 F 05/20/25 07:00 Pulse 66 05/20/25 07:00 Resp 18 05/20/25 07:00 BP 142/66 H 05/20/25 07:00 Pulse Ox 93 05/20/25 07:00 O2 Del Method Room Air 05/20/25 07:00 O2 Flow Rate 1 05/19/25 07:42 FiO2 97 05/15/25 04:00 BMI result Body Mass Index 27.2 DS: Data Data Completed and Pending Labs on day of discharge: Laboratory Results - last 24 hr 05/14/25 05/19/25 05/19/25 00:20 11:31 16:04 POC Glucose 166 H 101 Mycoplasma pneumon IgG 1.22 H Mycoplasma pneumon IgM 88 05/19/25 05/20/25 20:03 06:54 POC Glucose 140 H 108 Mycoplasma pneumon IgG Mycoplasma pneumon IgM Discharge Plan Discharge Anticipated Discharge Date/Time: 05/20/25 10:20 Patient Disposition: Xfer SNF Discharge Diagnosis: aspiration pna, delerium Referrals: Oli Grant, TRAFFIC LAW ATTORNEY-BC [Primary Care Provider, Internal Medicine] - 1 Week Discharge Medications: Continued amlodipine 10 mg tablet 10 mg PO DAILY 90 Days Qty: 90 1RF atenolol 50 mg tablet 50 mg PO DAILY 90 Days Qty: 90 1RF lisinopril 40 mg tablet 40 mg PO DAILY 90 Days Qty: 90 1RF acetaminophen 500 mg Capsule 500 mg PO Q6H PRN (Reason: Pain) PreserVision AREDS-2 250-90-40-1 mg Capsule 1 tab PO BID Discharge Orders: Discharge Order (Routine); Ordered 05/20/25 Ordered By: Arturo Zelaya Diet: NDD2 solids, nectar thick Activity on Discharge: As tolerated Stand Alone Forms: Patient Portal Discharge page Print Language: Uzbek Care Plan Goals: avoid aspriaiton Health Concerns: aspiratoin, delerium Plan of Treatment: compelted abx ndd2 solids, nectar thick liwuids, aspiraiton precautions orienting strategies rehab Assessment: see above
[2025-05-20 11:07] VITALS: BP 116/58; PULSE 60; RESP 18; TEMP 36.7; O2SAT 95
[2025-05-20 11:07] LABS: Glucose, Whole Blood 141 mg/dL (60-115)
[2025-05-20 15:32] LABS: Glucose, Whole Blood 168 mg/dL (60-115)
[2025-05-20 15:35] VITALS: BP 113/58; PULSE 63; RESP 16; TEMP 36.2; O2SAT 95
[2025-05-20 19:15] VITALS: BP 134/62; PULSE 64; RESP 16; TEMP 36.7; O2SAT 95
[2025-05-20 19:35] LABS: Glucose, Whole Blood 160 mg/dL (60-115)
[2025-05-20 23:59] VITALS: BP 130/62; PULSE 57; RESP 18; TEMP 37.1; O2SAT 94
[2025-05-21 03:37] VITALS: BP 139/61; PULSE 60; RESP 16; TEMP 36.8; O2SAT 95
[2025-05-21 07:00] LABS: Glucose, Whole Blood 86 mg/dL (60-115)
[2025-05-21 07:01] VITALS: BP 135/61; PULSE 65; RESP 20; TEMP 37.1; O2SAT 95
[2025-05-21] MEDS: 0.9 % Sodium Chloride Flush 3 ML SYRINGE IVFLUSH (08:17)
[2025-05-21 10:58] LABS: Glucose, Whole Blood 142 mg/dL (60-115)
[2025-05-21 11:04] VITALS: BP 107/53; PULSE 57; RESP 20; TEMP 36.9; O2SAT 96
--- NOTE | 2025-05-21 11:57 | MHC.CM.PN ---
Patient is medically cleared for dc to SNF/STR today, per MD in [facility]OUNDS. Patient will dc to his choice facility/[facility] today at 3PM, via [facility]. CM met with Patient and his Daughter at bedside and addressed IMM with Patient, providing him with the original and a copy has been placed on the chart.
--- NOTE | 2025-05-21 12:17 | HO.WOUND ---
Wound Consult: follow up 84 yr old male admitted to [facility] on 05/13/25- See progress notes and H&P for detailed history. Wound team requested to follow up for redness to heels. Patient agreeable to assessment and photo documentation. Patient up in chair with legs elevated, heels offloaded. Left heel Right heel Etiology: redness Wound Bed: intact blanchable redness, left greater than right Drainage / Odor: none Edges: ? irregular Teena wound: ? No Induration, Fluctuance or Warmth noted Pain: none Goals of Treatment: ? offloading, pressure redistribution with foams back skin tear not pictured today- improving, nursing reports increased moisture with foam, will change to triad paste daily. Recommendations: 1. Turn and Reposition every 2 hours and as needed for patient comfort. Use pillows or wedges to support off loading positions. 2. Off Load all bony prominences with use of pillows and heel boots if needed. Apply Preventative foams where needed. 3. Monitor for incontinence and moisture control, use barrier creams when needed for prevention and treatment. 4. Provide adequate and supplemental nutrition. 5. Order or Continue low air loss mattress. 6. When applicable maintain blood glucose levels per Providers order. Back skin tear: cleanse with saline, pat dry, apply skin prep teena wound, apply triad paste daily and PRN Buttocks MASD: Off Load Pressure with Q2 hr turns and use of pillows - Cleanse with PH balance spray or wipes, pat dry. ?Apply thin layer of Triad to wound bed - only pat and dab no scrub and rub when soiling occurs. Reapply thin layer PRN after each episode of incontinence. Bilateral heels: Elevate heels off of bed surface with pillows. Float heels off of pillows. Apply skin prep allow to dry. Apply heel foam dressings, peel back and assess Q shift and change every 5-7 days and PRN. Re-consult wound care Nurse for wound deterioration or wound changes.
--- NOTE | 2025-05-21 12:30 | P.DS_ITS ---
DS: Providers Provider Date of Service: 05/21/25 Date of admission: 05/13/25 21:09 Date of discharge: 05/21/25 Primary care physician: BIJAN Chapa- Consults: 05/15/25 00:34 Consult to Wound Care Routine Reason for consultation: coccyx w/ blanchable redness/maceration. masd Attending physician on discharge: Tonya Russell Discharging clinician: Tonya Russell DS: Diagnosis Discharge Diagnosis (1) Pneumonia: Status: Acute DS: Summary Hospital Course Hospital Course: from initial hpi: 84-year-old male with a past medical history of HTN, HLD, diabetes, BPH presented to the hospital today with a chief complaint of generalized weakness. Patient mentioned the past couple days he has been not feeling well. Has been having tiredness and exhaustion. Today after he got up in the morning he felt diaphoretic and short of breath; reports having cough. Denies any sputum production. Denies any sick contacts. Denies any chest pain or palpitations. Patient denies any nausea vomiting or diarrhea. Denies any urinary symptoms. Review of all other systems is negative except mentioned above ER course: Per ER team from patient on presentation noted to be short of breath, hypoxic to mid 80s; placed on supplemental oxygen; EKG nonischemic; troponin negative; on labs noted to have slightly elevated lactic acid and WBC. CT chest showed no evidence of PE but noted to have bilateral pneumonia-given ceftriaxone and azithromycin. Placed on supplemental oxygen. Patient initially had normal blood pressure but on follow-up patient had soft blood pressures. Given IV fluids-30 cc/kg. Lactic acidosis resolved. hospital course: Patient was admitted for sepsis and acute hypoxic respiratory failure due to aspiration pneumonia due to chronic dysphagia. Was seen by speech who recommended mechanically soft solids with nectar thick liquids and continuing aspiration precautions. Was treated with 7 day course of ceftriaxone azithromycin. Sepsis resolved and was weaned to room air. Cough improved. Course complicated by acute metabolic encephalopathy due to hospital delirium. Orienting strategies were applied, CT head was negative but did show baseline age-related changes. Mental status slowly improved to baseline. Course complicated by acute kidney injury and acute hypernatremia which resolved with IV fluids. For deconditioning was seen by physical therapy recommended short- term rehab to which patient will be discharged he is expected to require less than 30 days. For hypertension was continued on amlodipine and atenolol. For diabetes continued on insulin. plan: compelted abx ndd2 solids, nectar thick liwuids, aspiraiton precautions orienting strategies. Assessment and plan coordination time spent 45 minutes. Time Attestation Total time managing care of this patient today: 45 mintues. Discharge Coordination Time (in mins): 45 min Quality: Safe Use of Opioids Does Pt have an Active Cancer Diagnosis on the Problem List?: No Quality: Stroke Does the patient have a stroke diagnosis?: No Physical Exam Exam: Exam: General: AO X 3, no acute distress Resp: Crackles bilateral, no accessory muscles used CVS: S1,S2,RRR GI: soft, non tender, non distended Neuro: motor grossly intact, alert Psych: delerium appears resolved Vital Signs: Vital Signs: Last Vital Signs Temp 98.5 F 05/21/25 11:04 Pulse 57 05/21/25 11:04 Resp 20 05/21/25 11:04 BP 107/53 L 05/21/25 11:04 Pulse Ox 96 05/21/25 11:04 O2 Del Method Room Air 05/21/25 11:04 O2 Flow Rate 1 05/19/25 07:42 FiO2 97 05/15/25 04:00 BMI result Body Mass Index 27.2 DS: Data Data Completed and Pending Labs on day of discharge: Laboratory Results - last 24 hr 05/20/25 05/20/25 05/21/25 15:25 19:25 06:51 POC Glucose 168 H 160 H 86 05/21/25 10:55 POC Glucose 142 H Imaging Chest x-ray: Radiologist's impression: ITS Impressions Chest X-Ray 05/13/25 13:14 IMPRESSION: No acute disease. 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 Discharge Plan Discharge Anticipated Discharge Date/Time: 05/20/25 10:20 Patient Disposition: Xfer SNF Discharge Diagnosis: aspiration pna, delerium [facility] [Outside] - 1 Week Oli Grant FNP-BC [Primary Care Provider, Internal Medicine] - 1 Week Discharge Medications: Continued amlodipine 10 mg tablet 10 mg PO DAILY 90 Days Qty: 90 1RF atenolol 50 mg tablet 50 mg PO DAILY 90 Days Qty: 90 1RF lisinopril 40 mg tablet 40 mg PO DAILY 90 Days Qty: 90 1RF acetaminophen 500 mg Capsule 500 mg PO Q6H PRN (Reason: Pain) PreserVision AREDS-2 250-90-40-1 mg Capsule 1 tab PO BID Discharge Orders: Discharge Order (Routine); Ordered 05/21/25 Ordered By: Tonya Russell Diet: NDD2 solids, nectar thick Activity on Discharge: As tolerated Stand Alone Forms: Patient Portal Discharge page Print Language: Kazakh Care Plan Goals: avoid aspriaiton Health Concerns: aspiratoin, delerium Plan of Treatment: compelted abx ndd2 solids, nectar thick liwuids, aspiraiton precautions orienting strategies rehab Assessment: see above
--- NOTE | 2025-05-21 12:58 | MHC.SL.SWA ---
Speech Pathologist Impression: Risk of Aspiration Due to: Dysphasia Diet Status: UPGRADE diet to Chopped Advanced (NDD3) and THIN liquids (by cup sip only, small sips), pills whole or crushed in puree. Recommend patient use strategies of DOUBLE SWALLOW and Cough to clear on liquids and solids. Liquid Consistency and Strategies for Safe Swallow: Liquid Intake Recommendation: Thin Liquid Intake Strategies: Small Sips No Straws Double Swallow Solid Food Consistency: Dietary Recommendations: Chopped/Advanced (NDD3) Additional Modifications to Solid Foods: Periodically cough to clear any pharyngeal residual after swallow. Alternate liquids and solids in small bites and sips. Oral Medication Intake: Whole with Puree Please contact the pharmacy regarding appropriate crushable or liquid drug formulations that are available whenever modified delivery is recommended. Compensatory Strategies and Precautions to be Taken for Safe Swallow: Sitting Upright (90 deg) Double Swallow No Straw Small Bites and Sips Alternate Liquids/Solids Rate of Ingestion Change Supervision While Eating and Drinking for Safe Swallow: Direct Supervision (1:1) Foods to Avoid: Mixed consistencies, tough difficult to chew solids Swallowing Recommended Treatments: Compens. Strategy Educat. Recommendation for Speech: Inpatient Speech Therapy Comment: Patient was in chair beside bed, with daughter visiting, and in a cheerful mood, though waiting to hear about possible discharge today to [facility]. WALLCOVERING HANGER initially spent time discussing types of foods that would be appropriate for patient upon discharge, and strategies for managing both food and drink at home. Patient and daughter expressed significant dissatisfaction with the ground diet meals he has been receiving as an inpatient, noting that he had been here for 8 days, and generally gets the same meal twice daily. Patient also again expressed dislike of thickened liquids, and indicated he was likely to stop this practice once discharged. Unfortunately, the pillowcase cleaner came and informed patient and daughter the discharge would likely be delayed again, possible for another day. WALLCOVERING HANGER then re-assessed patient for an advancement of diet. Patient was given trials of water from a cup, advised to take small individual sips. Patient took several small sips, presented with clear voice, no coughing initially. However, upon pausing, patient then produced a vigorous cough, clearing airway. Patient did second trial of taking small sips, was instructed to swallow twice on each sip, completed for sips of liquid with no coughing, throat clearing, wet voice. Patient was then given a piece of rosina cracker dipped in puree, patient produced a rotary chew, chewed thoroughly, moved to add water to the bolus still in mouth and was advised not to, directed to swallow, then patient took sip of liquid to clear residual. Patient then coughed vigorously and re-swallowed. Patient noted he felt is was the dry, crumbly bits of rosina cracker that were difficult. WALLCOVERING HANGER noted that cough and re-swallow is a strategy that is appropriate for patient, and should be a part of his routine. Patient affirmed this is generally true for him, and a reason he doesn't go to restaurants, or eat with others. Recommend UPGRADE diet to Chopped Advanced (NDD3) and THIN liquids (by cup sip only, small sips), pills whole or crushed in puree. Recommend patient use strategies of DOUBLE SWALLOW and Cough to clear on liquids and solids. Patient and daughter agree with plan, are informed of strategies. Frequency/Duration: Date Range for Service Req: Timeline to reassess: Product Marketing Programs Manager Clinican/Clinical Fellow: No Supervisory Statement: I have reviewed and agree with the student/clinical fellow's documentation: N/A Speech Language Pathologist: Kirstin Lozada M.A., [facility]-WALLCOVERING HANGER
== END 2025-05-21 15:30 | disposition skilled nursing facility (03) | DRG 871 ==
LOC: HO.ED 21:24 → HO.EDOVER 22:52 → HO.IMC 05-14 14:07
PROVIDERS: Internal Medicine; Physician Assistant; Student in an Organized Health Care Education/Training Program; Admitting Provider Hospitalist; Emergency Provider Emergency Medicine; PCP Nurse Practitioner Family; Visit Provider Internal Medicine
DX: A41.9 Sepsis, unspecified organism (principal); G93.41 Metabolic encephalopathy; J69.0 Pneumonitis due to inhalation of food and vomit; J96.01 Acute respiratory failure with hypoxia; F05 Delirium due to known physiological condition; N17.9 Acute kidney failure, unspecified; E87.0 Hyperosmolality and hypernatremia; R65.20 Severe sepsis without septic shock; E11.9 Type 2 diabetes mellitus without complications; I10 Essential (primary) hypertension; N40.0 Benign prostatic hyperplasia without lower urinary tract symptoms; R13.10 Dysphagia, unspecified; R53.81 Other malaise; Z20.822 Contact with and (suspected) exposure to COVID-19; Z79.899 Other long term (current) drug therapy
CPT/HCPCS: 36415; 70450; 71045; 71275; 80048; 80053; 81001; 81003; 82803; 82947; 83605; 83735; 83880; 84484; 85025; 85027; 85610; 85730; 86738; 87040; 87086; 87449; 87502; 87635; 87899; 92526; 92610; 93005; 97112; 97162; 97530; 99285; J0696; J1650; J1720; J2543; J3373; J7120

== ENCOUNTER → 2025-05-13 12:34 | Outpatient (BNV) | payer MEDICARE, SELFPAY | PROVIDERS: Admitting Provider Hospitalist; Emergency Provider Emergency Medicine; PCP Nurse Practitioner Family; Visit Provider Internal Medicine Cardiovascular Disease | DX: R94.31 Abnormal electrocardiogram [ECG] [EKG] (principal); R07.9 Chest pain, unspecified; I44.0 Atrioventricular block, first degree; I45.10 Unspecified right bundle-branch block | CPT/HCPCS: 93010 ==

== ENCOUNTER → 2025-05-13 12:34 | Outpatient (BNV) | payer MEDICARE, SELFPAY | PROVIDERS: Emergency Provider Student in an Organized Health Care Education/Training Program; PCP Nurse Practitioner Family; Visit Provider Radiology Diagnostic Radiology | DX: J18.9 Pneumonia, unspecified organism (principal) | CPT/HCPCS: 71045 ==

== ENCOUNTER 2025-05-13 21:09 | Outpatient (BNV) | payer MEDICARE, SELFPAY | END 2025-05-17 11:24 | PROVIDERS: Admitting Provider Hospitalist; Emergency Provider Emergency Medicine; PCP Nurse Practitioner Family; Visit Provider Radiology Vascular & Interventional Radiology | DX: R41.82 Altered mental status, unspecified (principal) | CPT/HCPCS: 70450 ==

== ENCOUNTER → 2025-05-13 21:09 | Outpatient (BNV) | payer MEDICARE, SELFPAY | PROVIDERS: Admitting Provider Hospitalist; Emergency Provider Emergency Medicine; PCP Nurse Practitioner Family; Visit Provider Internal Medicine | DX: J18.9 Pneumonia, unspecified organism (principal) | CPT/HCPCS: 99232 ==

== ENCOUNTER 2025-05-26 06:06 | Outpatient (REF) | payer MEDICARE, SELFPAY ==
--- OUTSIDE RECORDS SUMMARY | 2024-05-23 04:30 | XMS_ITS ---
Author Organization [facility] Address [address] [place] [address] Care Team Providers Care Graphic Art Sales Representative Name Role Phone Oli Bernard Primary Care Provider Unav ailable Leanne Corbin [phone] Encounters Encounter Location Date Provider Diagnosis [facility] [address] [place] [address] 05/23/2024 Leanne Corbin Plan Of Treatment No Information Progress Notes * Raad ANTUNEZ BDOB: [birth year] (84 yo M)Acc No.[id number]:05/23/2024 Progress Note Patient: Raad HERNANDEZ Provider: Kelly Corbin DPM :1940 A ge:83 Y S ex:Male Date:05/23/2024 Address:[address] [facility], [id number] Pcp:PETE Mcclendon Subjective: * Chief Complaints: * [...] DPM Date: Generated for Marijai ng/Farizwanag/eTransmitting on: 06:09 AM EDT
[2025-05-26 06:08] LABS: MANUAL DIFF FLAG NO
--- OUTSIDE RECORDS SUMMARY | 2025-05-26 06:09 | XMS_ITS | Patient Health Record ---
Author Organization [facility] kevin Early Address [address] [place] [address] Care Team Providers Care Railroad Wheels And Axle Inspector Name Role Phone Oli Bernard Primary Care Provider Unav ailable Leanne Corbin Unavailable [phone] Allergies No Known Allergies Reason For Referral [...] Ulcer of toe of right foot (disorder) (434442472 [id number]) Skin ulcer of toe of right foot, limited to breakdown of skin (L97.511) Active confirmed Nonapplicable Problem Ulcer of toe of left foot (disorder) ([id number] [id number]) Skin ulcer of toe of left foot, limited to breakdown of skin (L97.521) Active confirmed Nonapplicable Plan Of Treatment Pending Test Test Name Order Date [id number]-Jirhsyqc Plate 01/18/2024 59547-Fmmgxdfc Plate Each Additional 77925- Debride <25 sq cm 02/05/2024 Insurance Providers Payer Name Payer Address Payer Phone Subscriber Number Group Number Insured Name Patient Relationship to Insured Coverage Start Date Coverage End Date [employer] Medicare [id number] [address] [address] [place] [address] [id number] Raad Antunez Self - patient is the insured Medical (General) History Medical History History ICD Code Arthritis Back pain Hiatal hernia Broken ankle Surgical History Surgery Date(Month/Year) back surgery 2003 appendectomy 1960
--- OUTSIDE RECORDS SUMMARY | 2025-05-26 06:10 | XMS_ITS | Clinical Summary ---
Author Organization [facility] Address [address] [address] Phone Care Team Providers Care Industry Analyst Name Role Phone Oli Grant MILKING MACHINE OPERATOR Primary Care Provider + Encounters Date Type Department Care Team Description 05/16/2025 Orders Only [facility] [address] [place], [place] [phone] Homehealth, Interface ProviderMD from Last 3 Months Social History Tobacco Use Types Packs/Day Years Used Date Smoking Tobacco: Never Assessed Education Answer Date Recorded Are you interested in more education? Not on nicole e 05/16/2025 Are you concerned about learning? Not on file 05/16/2025 No 05/16/2025 No 05/16/2025 Digital Access Answer Date Recorded No 05/16/2025 No 05/16/2025 Reliable internet access at home? Not on file 05/16/2025 Device with a working camera? Not on file Sex and Gender Information Value Date Recorded Sex Assigned at Not on file Legal Sex Male 11:28 AM EDT Gender Identity Not on file Sexual Orientation Not on file Plan of Treatment Not on file Medical Devices Not on file Insurance [facility] MEDICARE REPLACEMENT MEDICARE REPLACEMENT MEDICARE REPLACEMENT [facility] MEDICARE REPLACEMENT Member Subscriber Plan / Payer (Ef fective 2024-Present) Name:Raad Antunez Relation to Subscriber:Self Name:AntunezRaad Payer ID:[id number] (NAIC) Type:Medicare Address: [place] [id number] [facility] MEDICARE REPLACEMENT Care Teams Industry Analyst Relationship Specialty Start Date End Date Oli Grant NP [address] [place] [address] PCP - General Nurse Practitioner 05/16/25 Additional Source Comments The information contained in this document represents components of the legal health record. It is not the complete legal health record.[facility]
[2025-05-26 06:57] LABS: Hematocrit 30.2 % (42.0-52.0); Hemoglobin 10.0 g/dl (14.0-18.0); Imm Gran Abs Auto 0.05 X10*3/uL (0.00-0.03); Imm Gran Pct Auto 0.4 % (0.0-0.4); Lymphocytes Absolute Auto 1.2 X10*3/uL (1.2-4.9); Mean Corpuscular HGB Conc 33.1 g/dl (31.0-36.0); Mean Corpuscular Hemoglobin 31.6 pg (27.0-33.0); Mean Corpuscular Volume 95.6 fL (80.0-98.0); NRBC Abs Auto 0.000 X10*3/uL (0.0-0.012); NRBC Pct Auto 0.0 /100WBC (0.0-0.2); Platelet Count 298 X10*3/uL (160-400); Red Blood Count 3.16 X10*6/uL (4.60-5.80); White Blood Count 11.3 X10*3/uL (4.8-10.8)
[2025-05-26 07:19] LABS: Alanine Aminotransferase 36 U/L (0-40); Albumin Level 3.4 g/dL (3.5-5.0); Alkaline Phosphatase 59 U/L (39-117); Anion Gap 16 (12-20); Aspartate Amino Transferase 39 U/L (5-37); Blood Urea Nitrogen 30 mg/dL (9-16); Calcium 8.2 mg/dL (8.4-10.2); Carbon Dioxide 21 mmol/L (22-29); Chloride 110 mmol/L (96-108); Estimated Glomerular Filt Rate 39; Potassium 4.0 mmol/L (3.3-5.1); Sodium 143 mmol/L (135-145); Total Protein 6.1 g/dL (6.5-8.0)
== END 2025-05-26 06:07 | disposition home or self-care (01) ==
LOC: HO.MMNH2L 06:06
PROVIDERS: Visit Provider Physician Assistant Medical
DX: I10 Essential (primary) hypertension (principal); E78.5 Hyperlipidemia, unspecified; Z13.1 Encounter for screening for diabetes mellitus
CPT/HCPCS: 36415; 80053; 83036; 85025

== ENCOUNTER → 2025-06-01 23:59 | Outpatient (BNV) | payer MEDICARE, SELFPAY | PROVIDERS: PCP Nurse Practitioner Family; Visit Provider Nurse Practitioner Family | DX: J69.0 Pneumonitis due to inhalation of food and vomit (principal); E11.9 Type 2 diabetes mellitus without complications; J96.01 Acute respiratory failure with hypoxia | CPT/HCPCS: G0180 ==

== ENCOUNTER 2025-06-19 11:47 | Outpatient (REF) | payer MEDICARE, SELFPAY ==
[2025-06-19 16:19] LABS: MANUAL DIFF FLAG NO
[2025-06-19 16:28] LABS: Hematocrit 32.7 % (42.0-52.0); Hemoglobin 10.8 g/dl (14.0-18.0); Imm Gran Abs Auto 0.02 X10*3/uL (0.00-0.03); Imm Gran Pct Auto 0.2 % (0.0-0.4); Lymphocytes Absolute Auto 1.0 X10*3/uL (1.2-4.9); Mean Corpuscular HGB Conc 33.0 g/dl (31.0-36.0); Mean Corpuscular Hemoglobin 30.9 pg (27.0-33.0); Mean Corpuscular Volume 93.7 fL (80.0-98.0); NRBC Abs Auto 0.000 X10*3/uL (0.0-0.012); NRBC Pct Auto 0.0 /100WBC (0.0-0.2); Platelet Count 247 X10*3/uL (160-400); Red Blood Count 3.49 X10*6/uL (4.60-5.80); White Blood Count 8.1 X10*3/uL (4.8-10.8)
[2025-06-19 16:55] LABS: Alanine Aminotransferase 20 U/L (0-40); Albumin Level 4.4 g/dL (3.5-5.0); Alkaline Phosphatase 60 U/L (39-117); Anion Gap 14 (12-20); Aspartate Amino Transferase 29 U/L (5-37); Blood Urea Nitrogen 38 mg/dL (9-16); Calcium 8.7 mg/dL (8.4-10.2); Carbon Dioxide 25 mmol/L (22-29); Chloride 107 mmol/L (96-108); Estimated Glomerular Filt Rate 47; Magnesium 1.9 mg/dL (1.6-2.6); Potassium 3.6 mmol/L (3.3-5.1); Sodium 142 mmol/L (135-145); Total Protein 7.4 g/dL (6.5-8.0)
== END 2025-06-19 11:48 | disposition home or self-care (01) ==
LOC: HO.HMGCLDS 11:47
PROVIDERS: Absent Provider Nurse Practitioner Family; PCP Nurse Practitioner Family; Visit Provider Physician Assistant
DX: I10 Essential (primary) hypertension (principal); E78.5 Hyperlipidemia, unspecified; E11.9 Type 2 diabetes mellitus without complications; N40.0 Benign prostatic hyperplasia without lower urinary tract symptoms; E87.5 Hyperkalemia; Z09 Encounter for follow-up examination after completed treatment for conditions other than malignant neoplasm; Z86.19 Personal history of other infectious and parasitic diseases
CPT/HCPCS: 36415; 80053; 83735; 84443; 85025; 99212

== ENCOUNTER 2025-06-19 11:47 | Outpatient (AMB) | payer MEDICARE, SELFPAY ==
--- OUTSIDE RECORDS SUMMARY | 2024-05-23 03:30 | XMS_ITS ---
Author Organization [facility] Address [address] [place] [address] Care Team Providers Care Maintenance And Repair Worker Name Role Phone Oli Bernard Primary Care Provider Unav ailable Leanne Corbin [phone] Encounters Encounter Location Date Provider Diagnosis [facility] [address] [place] [address] 05/23/2024 Leanne Corbin Plan Of Treatment No Information Progress Notes * Raad ANTUNEZ BDOB: [birth year] (84 yo M)Acc No.[id number]:05/23/2024 Progress Note Patient: Raad HERNANDEZ Provider: Kelly Corbin DPM :1940 A ge:83 Y S ex:Male Date:05/23/2024 Address:[address] [facility], [id number] Pcp:PETE Mcclendon Subjective: * Chief Complaints: * * Medical History: Objective: * Vitals: Assessment: Plan: * Treatment: * Images: * The named appointment provid er may or may not be the originator of this progress note, and it is not deemed complete until electronically signed by the appointment provider. Sign off status: Pending * Provider: Kelly Corbin DPM Date: Generated for Marijai ike/Farizwanag/eTransmitting on: 08/19/2024 02:56 PM EST
--- NOTE | 2025-06-19 11:49 | MHC.PC.OV ---
Vital Signs 06/19/25 11:50 Height 5 ft 5 in Weight 157 lb BMI 26.1 BP 140/70 H Blood Pressure Location Lt brachial Position Sitting Pulse 63 Pulse Source Pulse Oximeter Pulse Oximetry (%) 96 Intake Visit Reasons: HDF, Sravan Bui Allergies No Known Allergies Allergy (Verified 06/19/25 11:50) Tobacco use date assessed: 11/20/24 Fall risk assessment: 1 Fall in past year Last assessed Fall Risk: 06/19/25 Dental Screening Dental Screen Date: 11/20/24 HPI HPI Comments History of Present Illness Details Patient is an 84-year-old male with a past medical history of HTN, HLD, T2 dm, BPH who went to the hospital on 05/13 after feelings of generalized weakness for the last few days and eventually he woke up that day feeling short of breath with a cough. In the ED, he was noted to be hypoxic to the mid 80s and required supplemental oxygen, his EKG was nonischemic, troponins were negative in his labs had a slightly elevated lactic acid and elevated white count. Chest CT showed no PE but was noted to have bilateral pneumonia. He was given sepsis fluids and his lactic acidosis resolved. He is also given ceftriaxone and azithromycin and placed on a nasal cannula. He was admitted for sepsis and acute hypoxic respiratory failure due to aspiration pneumonia secondary to chronic dysphagia. He was evaluated by CARRIER OPERATOR who recommended mechanically soft solids with nectar thick liquids and continue during aspiration precautions. He was treated with 7 days of ceftriaxone and azithromycin, his sepsis resolved and he was weaned to room air. His hospital course was complicated by acute metabolic encephalopathy which is felt to be due to hospital delirium. Head CT was negative and his mental status returned to his baseline. He was also noted to have a coccyx with blanchable redness less maceration and a consult was placed to wound care. Due to the deconditioning, he was evaluated by PT who recommended short-term rehab. He was discharged on May 21 to [facility]. Unfortunately, I do not have any records from [facility]. But I do know the patient was discharged on May 29 with home VNA services. Of note, we did receieve a [facility] slip on 06/12, K was 5.5, pt given kayexalate and drank it so we can repeat this today. On the labs from June 12, it does show his BUN and creatinine are trending down from 30/1.69 to 33/1.3. Today, the patient is here with his daughter. He states he is doing fantastic . He denies chest pain, shortness of breath, shortness of breath with exertion, dizziness, fatigue. States he feels in about another week, he will be back to baseline. He walks at ' using a cart for stabilization. He has been walking a lot which he feels has accelerated his recovery. He says his coccyx wound is fine, it has healed, he has no pain or drainage or fevers. VNA just discharged him this week. He drank he kayexalate and he has moved his bowels this morning. He knows he needs to repeat labs today. He is also getting his flu shot today at [facility]. Patient states he drinks water without thickit as he does not like the thickit product in his water or any fluids. When they gave it to him in the hospital, he refused to drink it. He tells me that the speech therapist told him he could drink out of a cup but not a bottle or straw so he is adhering to that. He also tries not to eat any crackers or things he feels like he would aspirate on. [facility] Medical History Sepsis Pyuria Incomplete emptying of bladder Benign prostatic hyperplasia with lower urinary tract symptoms Nocturia BPH (benign prostatic hyperplasia) Surgical History History of appendectomy History of back surgery Family History Sister Diabetes Breast cancer Lung cancer Social History Household Members: Children Household Members Other:: a daughter Housing: Condominium Do you presently have visiting nurse or other home services: No Comment: sitter Patient Tobacco Use Status: Never used Tobacco e-Cigarette/Vaping Use: Never Used Advance Directives Date on File: 05/13/25 service: No Current occupational status: retired Cognitive needs: No Hearing needs: No Vision needs: No Questionnaire Thrive Questionnaire Date Thrive assessed: 06/02/25 I am a: Patient What is your living situation today?: I have a steady place to live Within the past 12 months, did the food you bought not last and you didn't have the money to get more?: Never true Within the past 12 months, did you worry whether your food would run out before you got money to buy more?: Never true Do you have trouble paying for medicines?: No Do you have trouble getting transportation to medical appointments?: No Do you have trouble paying your heating and electricity bill?: No Do you have trouble taking care of your child, family member or friend?: No Do you have trouble with day-to-day activities such as bathing, preparing meals, shopping, managing finances, etc.?: No Are you currently unemployed and looking for a job?: No Are you interested in more education?: No Please select the resources that you would like help with: None Currently or been in a relationship where the following occur: No concerns reported THRIVE Score: 0 TIFFANIE-7 AMB Questionnaire TIFFANIE-7 Date TIFFANIE - 7 assessed: 11/20/24 Source: Developed by Drs. Manuel Agustin, Samia Kent, Ashvin Godoy and colleagues, with an educational gato from [employer]. Physical exam (Primary Care) Vital Signs: Last Vital Signs Pulse 63 06/19/25 11:50 BP 140/70 H 06/19/25 11:50 Pulse Ox 96 06/19/25 11:50 BMI result Body Mass Index 26.1 Tobacco/Smoking Status: Tobacco use Status Tobacco use date assessed 11/20/24 06/19/25 11:51 Patient Tobacco Use Status Never used Tobacco 06/19/25 11:51 e-Cigarette/Vaping Use Never Used 06/19/25 11:51 Thrive Assessment: Date of Thrive Assessment Date Thrive assessed 06/02/25 06/19/25 11:51 Currently or been in a relationship where the following occur: No concerns reported Const General: cooperative, healthy appearing, comfortable, no acute distress and well developed Orientation/consciousness: patient oriented x3 Limitations: no limitations [facility] Head: Yes normal to inspection Ears: hearing grossly normal bilaterally General nose exam: Normal external nose present Face and sinus: Yes normal facial exam Eyes General: appearance normal, both eyes and all related structures Neck Neck: Yes normal visual inspection and Yes full ROM Resp Effort & Inspection: normal respiratory effort and able to speak in complete sentences Auscultation: clear to auscultation bilaterally Cardio Rate: regular rate Rhythm: regular rhythm Heart sounds: normal S1 and S2 Skin General skin exam: no rashes or lesions noted Neuro General: patient oriented x3 Extrem General: Yes normal to inspection Coding Level of Care Code Est Pt Level 4 (08312) Diagnoses Hospital discharge follow-up Z09 Hyperkalemia E87.5 Assessment & Plan Assessment & Plan (1) Hospital discharge follow-up: Code(s): Z09 - Encounter for follow-up examination after completed treatment for conditions other than malignant neoplasm Category: Medical Plan: - VSS, pt well appearing and PE unremarkable. - Use ThickIt with all of your thin liquids before drinking and adhere to the diet the CARRIER OPERATOR educated you on in the hospital to avoid a recurrent aspiration pneumonia and likely subsequent hospitalization. - Please get your Flu Shot today, as scheduled. (2) Hyperkalemia: Code(s): E87.5 - Hyperkalemia Category: Medical Plan: - Please repeat your labs today
[2025-06-19 11:50] VITALS: BP 140/70; PULSE 63; O2SAT 96; BMI 26.1
--- OUTSIDE RECORDS SUMMARY | 2025-06-19 14:57 | XMS_ITS | Clinical Summary ---
Author Organization [facility] Address [address] [place] [address] Phone Care Team Providers Care Optometric Technologist Name Role Phone Oli Grant MORTGAGE CLOSER Primary Care Provider + Encounters Date Type Department Care Team Description 05/16/2025 Orders Only [facility] [address] [place], [place] [phone] Homehealth, Interface ProviderMD from Last 3 Months [...] file Medical Devices Not on file Insurance [facility] MEDICARE REPLACEMENT MEDICARE REPLACEMENT MEDICARE REPLACEMENT [facility] MEDICARE REPLACEMENT Member Subscriber Plan / Payer (Ef fective 2024-Present) Name:Raad Antunez Relation to Subscriber:Self Name:AntunezRaad Payer ID:[id number] (NAIC) Type:Medicare Address: [place] [id number] [facility] MEDICARE REPLACEMENT Care Teams Optometric Technologist Relationship Specialty Start Date End Date Oli Grant NP [address] [place] [address] PCP - General Nurse Practitioner 05/16/25 Additional Source Comments The information contained in this document represents components of the legal health record. It is not the complete legal health record.[facility]
--- OUTSIDE RECORDS SUMMARY | 2025-06-19 14:57 | XMS_ITS | Patient Health Record ---
Author Organization [facility] kevin Mosby Address [address] [place] [address] Care Team Providers Care Supervisor Edging Name Role Phone Oli Bernard Primary Care Provider Unav ailable Leanne Corbin Unavailable [phone] Allergies No Known Allergies Reason For Referral [...] Ulcer of toe of right foot (disorder) ([id number]) Skin ulcer of toe of right foot, limited to breakdown of skin (L97.511) Active confirmed Nonapplicable Problem Ulcer of toe of left foot (disorder) ([id number] 93502977) Skin ulcer of toe of left foot, limited to breakdown of skin (L97.521) Active confirmed Nonapplicable Plan Of Treatment Pending Test Test Name Order Date [id number]-Rycdmqzb Plate 01/18/2024 [id number] Plate Each Additional 32348- Debride <25 sq cm 02/05/2024 Insurance Providers Payer Name Payer Address Payer Phone Subscriber Number Group Number Insured Name Patient Relationship to Insured Coverage Start Date Coverage End Date [employer] Medicare [id number] [address] [address] [place] [address] [id number] Raad Antunez Self - patient is the insured Medical (General) History Medical History History ICD Code Arthritis Back pain Hiatal hernia Broken ankle Surgical History Surgery Date(Month/Year) back surgery 2003 appendectomy 1960
== END 2025-06-19 12:32 | disposition home or self-care (01) ==
LOC: HO.HMCC 11:47
PROVIDERS: PCP Nurse Practitioner Family; Visit Provider Physician Assistant
DX: Z09 Encounter for follow-up examination after completed treatment for conditions other than malignant neoplasm (principal); E87.5 Hyperkalemia

== ENCOUNTER 2025-07-07 12:32 | Inpatient (IN) | payer MEDICARE, SELFPAY ==
[2025-07-07] VITALS (9 sets, daily range): BP systolic 80–130; BP diastolic 30–63; PULSE 54–101; RESP 12–22; TEMP 36.3–37.1; O2SAT 90–98; BMI 28.6
--- NOTE | ~2025-07-07 | CT_ITS ---
EXAMINATION: CT CERVICAL SPINE WITHOUT CONTRAST CLINICAL INFORMATION: Status post fall. COMPARISON: None available. TECHNIQUE: Contiguous axial images through the cervical spine using 3 mm collimation with bone and soft tissue algorithm. Sagittal and coronal reformatted images acquired. This CT examination was performed using dose optimization techniques as appropriate, variously including the following: *Automated exposure control *Adjustment of mA and/or kV according to patient size (this includes techniques or standardized protocols for targeted exams where dose is matched to indication/reason for exam; i.e. extremities or head) *Use of iterative reconstruction technique DLP: 418.01 mGy-cm FINDINGS: Degenerative changes in the craniocervical junction demonstrates normal alignment and no acute cortical disruption. Subchondral cyst formation and sclerosis along the articular surface of the left occipital condyle left lateral mass of C1. There is a partially calcified pannus formation in the periodontal C1 region with the joint space narrowing of the anterior arch of C1 with respect to the odontoid process of C2. Well-corticated/sclerotic marginated subchondral cyst formation in the medial aspect of the left lateral masses C1. There is extensive syndesmophyte formation within the anterior prevertebral compartment from C2 to T3. Multilevel endplate sclerosis subchondral cyst formation and chondrocalcinosis of the intervertebral disc height from C3 to T3. There is a grade 1 anterolisthesis C7-T1 and T1 S2. C1 is intact. C2 is intact. C3 is intact. C4 is intact. C5 is intact. C6 is intact. C7 is intact. Osteopenia versus osteoporosis. No prevertebral compartment hematoma. Calcified plaques in the carotic arteries. Central spinal canal stenosis on a degenerative basis at C3-4. 2 cm dominant nodule, left thyroid gland. Calcified plaque in the aortic arch and its main branches. 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 No acute fracture or trauma-related listhesis. Fleischner guidelines were followed. Electronically signed by: Saeed Ratliff MD 07/07/2025 01:40 PM EST
--- NOTE | ~2025-07-07 | XR_ITS ---
EXAMINATION: XR LUMBOSACRAL SPINE CLINICAL INFORMATION: fall onto low back COMPARISON: Correlated to MRI lumbar spine report, images are not available on PACS dated January 17, 2008. TECHNIQUE: AP and lateral views. FINDINGS: Multilevel marginal osteophyte formation and endplate sclerosis decreased intervertebral disc height throughout the axial skeleton. Large syndesmophyte formation at T12-L1, L4-5 and L3-4 levels. Incomplete ankylosis at L2-3. Grade 1 anterolisthesis at L4-5. No acute cortical disruption. Vascular calcifications, aorta. Osteopenia versus osteoporosis. Facet joint hypertrophy at L4-5 and L5-S1. XR/XR lumbar spine 2-3V IMPRESSION: Multilevel thoracolumbar spondylosis resulting in grade 1 anterolisthesis at L4-5. No overt acute fracture or trauma-related listhesis. Electronically signed by: Saeed Ratliff MD 07/07/2025 03:44 PM [facility] [place]
--- NOTE | ~2025-07-07 | XR_ITS ---
EXAMINATION: XR CHEST CLINICAL INFORMATION: Hypoxia COMPARISON: 07/07/2025. TECHNIQUE: Frontal view of the chest was obtained. FINDINGS: Projection is apical lordotic. The cardiac, hilar, and mediastinal contours are normal. Aortic mural calcifications. The lungs are clear allowing for apical lordotic technique. No pneumothorax or effusion. No focal osseous or soft tissue abnormality. There are degenerative changes in both shoulder joints and throughout the spine. XR/XR chest 1V IMPRESSION: 1. Apical lordotic projection. 2. No active lung disease within these confines. Electronically signed by: Andrzej Valderrama MD 07/09/2025 04:34 PM EST
--- NOTE | ~2025-07-07 | XR_ITS ---
EXAMINATION: XR CHEST CLINICAL INFORMATION: hypoxic, cough, ?aspiration COMPARISON: 05/13/2025 chest x-ray, and CT angiography chest. TECHNIQUE: AP view of the chest was obtained. FINDINGS: The cardiac, hilar, and mediastinal contours are normal. The lungs are clear bilaterally. No pneumothorax or effusion. No focal osseous or soft tissue abnormality. There are degenerative changes in both shoulder joints and throughout the spine. XR/XR chest 1V IMPRESSION: No active pulmonary disease. Electronically signed by: Andrzej Valderrama MD 07/07/2025 04:30 PM [facility]
--- NOTE | ~2025-07-07 | CT_ITS ---
EXAMINATION: CT HEAD WITHOUT CONTRAST CLINICAL INFORMATION: fall COMPARISON: May 17, 2025 TECHNIQUE: Contiguous axial imaging was performed from the skull base to vertex without intravenous administration of contrast. This CT examination was performed using dose optimization techniques as appropriate, variously including the following: *Automated exposure control *Adjustment of mA and/or kV according to patient size (this includes techniques or standardized protocols for targeted exams where dose is matched to indication/reason for exam; i.e. extremities or head) *Use of iterative reconstruction technique DLP: 777.67 mGy-cm FINDINGS: No acute cortical disruption within the bony calvarium. Probable old traumatic deformities, nasal bones. No acute intracranial hemorrhage, mass effect, midline shift, hydrocephalus or herniation. Mayes-white matter differentiation is normal. Bilateral multifocal patchy and confluent deep periventricular white matter hypodensities involving centrum semiovale and govea radiata. Old lacunar infarcts, basal ganglia and extracapsular. Prominence of the extra-axial CSF spaces cerebral sulci and ventricles. Posterior cranial fossa contents demonstrated no acute hemorrhage or mass effect. Normal position of the cerebellar tonsils. Sellar/suprasellar region demonstrated no gross masses. Vascular calcifications, V4 segments of the vertebral arteries and cavernous supracavernous segments both ICAs. Polypoid mucosal thickening, right maxillary sinus with effervescent secretions. Poor dentition. Tympanic cavities and mastoid air cells are aerated. Degenerative changes with a partially calcified pannus formation, periodontal region. CT/CT head/brain wo IV con IMPRESSION: No acute fracture, bony calvarium. No acute intracranial hemorrhage. White matter disease likely related to small vessel occlusive disease. Global cerebral atrophy. 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 Pannus formation periodontal C1 region. Consider arthritis. Electronically signed by: Saeed Ratliff MD 07/07/2025 01:32 PM [facility] [place]
[2025-07-07 13:13] LABS: MANUAL DIFF FLAG NO
[2025-07-07 13:15] LABS: Hematocrit 34.8 % (42.0-52.0); Hemoglobin 12.0 g/dl (14.0-18.0); Imm Gran Abs Auto 0.02 X10*3/uL (0.00-0.03); Imm Gran Pct Auto 0.3 % (0.0-0.4); Lymphocytes Absolute Auto 0.7 X10*3/uL (1.2-4.9); Mean Corpuscular HGB Conc 34.5 g/dl (31.0-36.0); Mean Corpuscular Hemoglobin 31.7 pg (27.0-33.0); Mean Corpuscular Volume 91.8 fL (80.0-98.0); NRBC Abs Auto 0.000 X10*3/uL (0.0-0.012); NRBC Pct Auto 0.0 /100WBC (0.0-0.2); Platelet Count 170 X10*3/uL (160-400); Red Blood Count 3.79 X10*6/uL (4.60-5.80); White Blood Count 6.3 X10*3/uL (4.8-10.8)
[2025-07-07 13:32] LABS: Alanine Aminotransferase 50 U/L (0-40); Albumin Level 4.2 g/dL (3.5-5.0); Alkaline Phosphatase 52 U/L (39-117); Anion Gap 19 (12-20); Aspartate Amino Transferase 145 U/L (5-37); Blood Urea Nitrogen 65 mg/dL (9-16); Calcium 8.3 mg/dL (8.4-10.2); Carbon Dioxide 15 mmol/L (22-29); Chloride 113 mmol/L (96-108); Creatinine Clr Calc Pharmacy 18.9; Estimated Glomerular Filt Rate 24; Potassium 4.4 mmol/L (3.3-5.1); Sodium 143 mmol/L (135-145); Total Protein 7.3 g/dL (6.5-8.0)
[2025-07-07 13:40] LABS: Troponin-I High Sensitivity 65.4 ng/L (<3.5-35.0)
--- NOTE | 2025-07-07 14:04 | ED_ITS ---
HPI - Fall General Chief Complaint: Fall Stated Complaint: FALL LAST NIGHT Time Seen by Provider: 07/07/25 13:34 Source: patient, family (daughter) and EMS Mode of arrival: EMS Limitations: no limitations History of Present Illness ED Provider: SHIRIN HERNÁNDEZ PA-C HPI Narrative: 84 year old male with PMHx of HTN presents to the ED today via EMS from home following an unwitnessed fall overnight last night. Patient states he took off his socks around 1800 last night, causing him to slip and fall, landing on the carpet next to his bed. Reports falling onto his buttocks/lower back. States he laid on his back until his daughter found him this morning. Daughter contacted EMS. He denies head strike or LOC. Not on anticoagulation. At present, patient endorses lower back pain. He does not believe he has urinated since last night. Denies bladder incontinence, saddle anesthesia, numbness/tingling/weakness of the LEs. Denies headache, dizziness, vision changes, nausea or vomiting. Related Data Home Medications ?Medication ?Instructions ?Recorded ?Confirmed acetaminophen 500 mg capsule 500 mg PO Q6H PRN Pain 05/14/25 vit C 250 mg-vit E 90 mg-zinc 40 1 tab PO BID 05/14/25 05/14/25 mg-copper 1 [id number] capsule (PreserVision AREDS-2) Previous Rx's ?Medication ?Instructions ?Recorded atenolol 50 mg tablet 50 mg PO DAILY 90 days #90 t abs 02/26/25 amlodipine 10 mg tablet 10 mg PO DAILY 90 days #90 t abs 06/11/25 Allergies Allergy/AdvReac Type Severity Reaction Status Date / Time No Known Allergies Allergy Verified 07/07/25 12:48 Review of Systems 2 Review of Systems: Yes all other systems are reviewed and are negative PMFSH Past Medical History Attestation statement: The following information was validated with the patient. Source: old records reviewed and nursing notes reviewed Medical History Sepsis Pyuria Incomplete emptying of bladder Benign prostatic hyperplasia with lower urinary tract symptoms Nocturia BPH (benign prostatic hyperplasia) Surgical History History of appendectomy History of back surgery Family History Family History Sister Diabetes Breast cancer Lung cancer Social History Social History Household Members: Children Household Members Other:: a daughter Housing: [facility] Do you presently have visiting nurse or other home services: No Comment: sitter Patient Tobacco Use Status: Never used Tobacco e-Cigarette/Vaping Use: Never Used Use of substances other than those prescribed or required for medical reasons: No Advance Directives: Yes Advance Directives on File: Yes Advance Directives Date on File: 05/13/25 Do you have a plan to hurt others: No Plan service: No Current occupational status: retired Cognitive needs: No Hearing needs: No Vision needs: No Physical Exam 2 Vital Signs: Vital Signs: Last Vital Signs Temp 98.8 F 07/07/25 17:04 Pulse 64 07/07/25 17:04 Resp 14 07/07/25 17:04 BP 110/30 L 07/07/25 17:04 Pulse Ox 96 07/07/25 17:04 O2 Del Method Nasal Cannula 07/07/25 16:30 O2 Flow Rate 3 07/07/25 16:30 BMI result Body Mass Index 28.6 hypoxic, afebrile General: tremulous, no acute distress Skin: 1 inch round abrasion to lateral aspect of left lower extremity, no surrounding erythema or discharge. Skin otherwise warm, dry, and intact. Head: Normocephalic, atraumatic. No scalp tenderness or deformities. No maxillary tenderness. EENT: Hearing is intact b/l. Conjunctiva clear. PERRLA. EOM intact. Moist mucous membranes.? Neck: in cervical collar Cardiac: Chest wall symmetric. RRR Lungs: Normal respiratory effort without accessory muscle use. CTA bilaterally Abdomen: Soft, non-tender, non-distended. No rebound tenderness or guarding. Positive BS x4. Back: No midline spinous or paraspinal tenderness. No step off deformity. Ext: Upper and lower extremities atraumatic, without tenderness, deformity, swelling or erythema Neuro: AOx3. Normal speech. Strength 4/5 intact throughout. No saddle anesthesia. Sensation intact to light touch. NV intact distally. Ambulating with steady gait Course Course Course Narrative: CBC without leukocytosis. left shift to 80%. Normocytic anemia, H and H stable when compared to priors. Above transfusion threshold. Chemistry showing acute on chronic kidney injury with BUN of 65 and creatinine of 2.51. CPK elevated to 3086 -concern for rhabdomyolysis. Random glucose 127, no anion gap. Troponin elevated to 65.4, delta down trending at 55.6. This is likely secondary to kidney injury. I have extremely low suspicion for ACS. denies chest pain, sob, or palpitations. Head CT without intracranial bleed. CT cervical spine without fracture. x-ray lumbar spine without fracture. Bladder scan showing over 400 cc urine, patient able to void >300 cc. no concern for retention/ cauda. Rhabdomyolysis: > 2 L IV fluids ordered > IV tylenol ordered > UA pending Hypoxia: requiring 2L NC satting 93%. He does not require supplemental O2 at home. patient recently admitted for acute hypoxic respiratory failure. > will obtain chest x-ray. Concern for possible aspiration, zosyn ordered. viral swabs ordered. 1700 -- cxr without obvious infiltrate or consolidation. I have low suspicion for PE. Further exam with IV contrast limited as patient has a kidney injury. I am covering for pneumonia given recent history. Patient may require V/Q scan once admitted to medicine. > I did reach out to hospitalist brynn Martinez - patient to be admitted to medicine for management of rhabdomyolysis, acute on chronic kidney injury and hypoxic respiratory failure. patient and daughter at bedside are agreeable. patient is stable at this time. Medications Administered Discontinued Medications Generic Name Dose Route Start Last Admin Trade Name Freq PRN Reason Stop Dose Admin Sodium Chloride 1,000 mls @ 999 mls/hr 07/07/25 13:45 07/07/25 17:07 Ns IV 07/07/25 14:45 Infused .Q1H1M MELBA Infusion Acetaminophen 1,000 mg in 100 mls @ 400 mls/hr 07/07/25 14:26 07/07/25 15:54 Ofirmev IV 07/07/25 14:40 Infused ONCE ONE Infusion Calcium Gluconate 1 gm in 50 mls @ 50 mls/hr 07/07/25 14:31 07/07/25 15:54 Calcium Gluconate IV 07/07/25 15:30 Infused ONCE ONE Infusion Sodium Chloride 1,000 mls @ 999 mls/hr 07/07/25 14:45 12/01/25 15:54 Ns IV 07/07/25 15:45 Infused .Q1H1M MELBA Infusion Piperacillin Sod/Tazobactam 50 mls @ 100 mls/hr 07/07/25 16:19 07/07/25 17:12 Sod 3.375 gm/ Sodium Chloride IV 07/07/25 16:48 100 mls/hr ONCE ONE Administration Medical Decision Making Medical Decision Making [facility] Narrative: 84 year old male with PMHx of HTN presents to the ED today via EMS from home following an unwitnessed fall overnight last night. patient is hypoxic. afebrile - temp 98.8F rectally. he is generally well appearing, mildly tremulous. in NAD. Head is normocephalic, atraumatic. No christianson sign, raccoon eyes. Patient in cervical collar. no signs of trauma. no respiratory distress, no tripoding, lungs clear. Differential diagnosis includes anemia, electrolyte abnormality, dehydration, hypothermia, rhabdomyolysis, concussion, contusion, intracranial bleed, UTI, pneumonia Plan labs, EKG, coming away, re-evaluation. Differential Diagnosis Differential Diagnoses: The differential diagnosis associated with the presentation includes as above. Admission/Observation Consideration of admission/observation: Escalation of care including admission/observation considered Patient admitted to medicine for management of acute on chronic kidney injury, rhabdomyolysis Consult Healthcare Provider Management of the patient was discussed with: Hospitalist (brynn martinez) Lab Data [facility] Lab Attestation statement: I reviewed the patient's lab results. as above. 07/07/25 12:58 07/07/25 12:58 Labs: Lab Results 07/07/25 07/07/25 07/07/25 Range/Units 12:58 15:08 16:59 WBC 6.3 (4.8-10.8) X10*3/uL RBC 3.79 L (4.60-5.80) X10*6/uL Hgb 12.0 L (14.0-18.0) g/dl Hct 34.8 L (42.0-52.0) % MCV 91.8 (80.0-98.0) fL MCH 31.7 (27.0-33.0) pg MCHC 34.5 (31.0-36.0) g/dl RDW 12.6 (11.0-16.0) % Plt Count 170 D (160-400) X10*3/uL MPV 10.2 (9.4-12.4) fL Immature Gran % (Auto) 0.3 (0.0-0.4) % Neut % (Auto) 80.3 H (45-73) % Lymph % (Auto) 11.4 L (20-40) % Bladen % (Auto) 7.8 (2-11) % Eos % (Auto) 0.0 (0-4) % Baso % (Auto) 0.2 (0-2) % Lymph # (Auto) 0.7 L (1.2-4.9) X10*3/uL Bladen # (Auto) 0.5 (0.1-1.2) X10*3/uL Eos # (Auto) 0.0 (0.0-0.4) X10*3/uL Baso # (Auto) 0.0 (0.0-0.2) X10*3/uL Abs Immat Gran (auto) 0.02 (0.00-0.03) X10*3/uL Absolute Neuts (auto) 5.0 (2.0-8.3) x10*3/uL Absolute Nucleated RBC 0.000 (0.0-0.012) X10*3/uL Nucleated RBC % (auto) 0.0 (0.0-0.2) /100WBC Sodium 143 (135-145) mmol/L Potassium 4.4 D (3.3-5.1) mmol/L Chloride 113 H (96-108) mmol/L Carbon Dioxide 15 L (22-29) mmol/L Anion Gap 19 (12-20) BUN 65 H (9-16) mg/dL Creatinine 2.51 H (0.5-1.4) mg/dL Estim Creat Clear Calc 18.9 Estimated GFR 24 Random Glucose 127 H (60-115) mg/dL Lactic Acid 1.5 (0.5-2.0) mmol/L Calcium 8.3 L (8.4-10.2) mg/dL Total Bilirubin 0.4 (0.0-1.0) mg/dL AST 145 H (5-37) U/L ALT 50 H (0-40) U/L Alkaline Phosphatase 52 (39-117) U/L Total Creatine Kinase 3086 H (38-174) U/L Troponin I High Sens 65.4 H D 55.6 H (<3.5-35.0) ng/L Total Protein 7.3 (6.5-8.0) g/dL Albumin 4.2 (3.5-5.0) g/dL Urine Color Yellow Urine Appearance Cloudy Urine pH 5.0 (5.0-9.0) Ur Specific Vista 1.020 (1.005-1.025) Urine Protein 300 (3+) H (Neg-Trace) mg/dL Urine Glucose (UA) Negative (Negative) mg/dL Urine Ketones 15 (Negative) mg/dL Urine Blood Large (3+) H (Negative) Urine Nitrite Negative (Negative) Ur Leukocyte Esterase Negative (Negative) Urine RBC 0-2 (0-2) /HPF Urine WBC 0-5 (0-5) /HPF Ur Squamous Epith Cells 0-2 (0-2) /HPF Urine Bacteria None Seen (None Seen) Hyaline Casts 11-20 (0-2) /LPF Independent Interpretation I performed an independent interpretation of an: EKG, Plain X-Ray and CT Scan Interpretation: CT head w/o bleed ct c spine without fracture Chest x-ray without infiltrate or consolidation EKG showing sinus bradycardia, first-degree AV block, known right bundle-branch block, rate of 58 beats per minute Radiology Impression Discussion of test interpretation with radiology: I have reviewed the radiologist's reading. Radiologist Impression: Procedure(s): XR chest 1V Accession Number(s): [id number] cc: Oli Grant [facility]; Shirin Hernández~ Reason for Exam: hypoxic, cough, ?aspiration EXAMINATION: XR CHEST CLINICAL INFORMATION: hypoxic, cough, ?aspiration COMPARISON: 05/13/2025 chest x-ray, and CT angiography chest. TECHNIQUE: AP view of the chest was obtained. FINDINGS: The cardiac, hilar, and mediastinal contours are normal. The lungs are clear bilaterally. No pneumothorax or effusion. No focal osseous or soft tissue abnormality. There are degenerative changes in both shoulder joints and throughout the spine. XR/XR chest 1V IMPRESSION: No active pulmonary disease. Electronically signed by: Andrzej Valderrama MD 07/07/2025 04:30 PM EST RP Procedure(s): XR lumbar spine 2-3V Accession Number(s): [id number] cc: Oli Grant; Shirin Hernández~ Reason for Exam: fall onto low back EXAMINATION: XR LUMBOSACRAL SPINE CLINICAL INFORMATION: fall onto low back COMPARISON: Correlated to MRI lumbar spine report, images are not available on PACS dated January 17, 2008. TECHNIQUE: AP and lateral views. FINDINGS: Multilevel marginal osteophyte formation and endplate sclerosis decreased intervertebral disc height throughout the axial skeleton. Large syndesmophyte formation at T12-L1, L4-5 and L3-4 levels. Incomplete ankylosis at L2-3. Grade 1 anterolisthesis at L4-5. No acute cortical disruption. Vascular calcifications, aorta. Osteopenia versus osteoporosis. Facet joint hypertrophy at L4-5 and L5-S1. XR/XR lumbar spine 2-3V IMPRESSION: Multilevel thoracolumbar spondylosis resulting in grade 1 anterolisthesis at L4-5. No overt acute fracture or trauma-related listhesis. Electronically signed by: Saeed Ratliff MD 07/07/2025 03:44 PM EST RP Procedure(s): CT head/brain wo IV con Accession Number(s): [id number] cc: Oli Grant; Farrah Carreon~ Report Number: [id number]: Total DLP = 0.00 mGy-cm Reason for Exam: fall EXAMINATION: CT HEAD WITHOUT CONTRAST CLINICAL INFORMATION: fall COMPARISON: May 17, 2025 TECHNIQUE: Contiguous axial imaging was performed from the skull base to vertex without intravenous administration of contrast. This CT examination was performed using dose optimization techniques as appropriate, variously including the following: *Automated exposure control *Adjustment of mA and/or kV according to patient size (this includes techniques or standardized protocols for targeted exams where dose is matched to indication/reason for exam; i.e. extremities or head) *Use of iterative reconstruction technique DLP: 777.67 mGy-cm FINDINGS: No acute cortical disruption within the bony calvarium. Probable old traumatic deformities, nasal bones. No acute intracranial hemorrhage, mass effect, midline shift, hydrocephalus or herniation. Mayes-white matter differentiation is normal. Bilateral multifocal patchy and confluent deep periventricular white matter hypodensities involving centrum semiovale and govea radiata. Old lacunar infarcts, basal ganglia and extracapsular. Prominence of the extra-axial CSF spaces cerebral sulci and ventricles. Posterior cranial fossa contents demonstrated no acute hemorrhage or mass effect. Normal position of the cerebellar tonsils. Sellar/suprasellar region demonstrated no gross masses. Vascular calcifications, V4 segments of the vertebral arteries and cavernous supracavernous segments both ICAs. Polypoid mucosal thickening, right maxillary sinus with effervescent secretions. Poor dentition. Tympanic cavities and mastoid air cells are aerated. Degenerative changes with a partially calcified pannus formation, periodontal region. CT/CT head/brain wo IV con IMPRESSION: No acute fracture, bony calvarium. No acute intracranial hemorrhage. White matter disease likely related to small vessel occlusive disease. Global cerebral atrophy. 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 Pannus formation periodontal C1 region. Consider arthritis. Electronically signed by: Saeed Ratliff MD 07/07/2025 01:32 PM [facility] Procedure(s): CT cervical spine wo IV con Accession Number(s): [id number] cc: Oli Grant [facility]; Farrah Carreon~ Report Number: [id number]: Total DLP = 1202.74 mGy-cm Reason for Exam: fall EXAMINATION: CT CERVICAL SPINE WITHOUT CONTRAST CLINICAL INFORMATION: Status post fall. COMPARISON: None available. TECHNIQUE: Contiguous axial images through the cervical spine using 3 mm collimation with bone and soft tissue algorithm. Sagittal and coronal reformatted images acquired. This CT examination was performed using dose optimization techniques as appropriate, variously including the following: *Automated exposure control *Adjustment of mA and/or kV according to patient size (this includes techniques or standardized protocols for targeted exams where dose is matched to indication/reason for exam; i.e. extremities or head) *Use of iterative reconstruction technique DLP: 418.01 mGy-cm FINDINGS: Degenerative changes in the craniocervical junction demonstrates normal alignment and no acute cortical disruption. Subchondral cyst formation and sclerosis along the articular surface of the left occipital condyle left lateral mass of C1. There is a partially calcified pannus formation in the periodontal C1 region with the joint space narrowing of the anterior arch of C1 with respect to the odontoid process of C2. Well-corticated/sclerotic marginated subchondral cyst formation in the medial aspect of the left lateral masses C1. There is extensive syndesmophyte formation within the anterior prevertebral compartment from C2 to T3. Multilevel endplate sclerosis subchondral cyst formation and chondrocalcinosis of the intervertebral disc height from C3 to T3. There is a grade 1 anterolisthesis C7-T1 and T1 S2. C1 is intact. C2 is intact. C3 is intact. C4 is intact. C5 is intact. C6 is intact. C7 is intact. Osteopenia versus osteoporosis. No prevertebral compartment hematoma. Calcified plaques in the carotic arteries. Central spinal canal stenosis on a degenerative basis at C3-4. 2 cm dominant nodule, left thyroid gland. Calcified plaque in the aortic arch and its main branches. 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 No acute fracture or trauma-related listhesis. Fleischner guidelines were followed. Electronically signed by: Saeed Ratliff MD 07/07/2025 01:40 PM [facility] Independent Historian Clinical information obtained from an independent historian. History obtained from or confirmed by: EMS and Other (daughter) External Record Review External record reviewed: Inpatient record Prescription Management I considered prescription management with: Pain Medication and Antibiotic Chronic Conditions Patient?s care impacted by: Diabetes, Hypertension and Other (CKD) Social Determinants Patient?s care significantly limited by Social Determinants of Health including: Other Social Determinant of Health Critical Care Time Critical Care Time Critical Care Time: Yes Total Critical Care Time: 55 Attestation: Critical care time in the amount of 55 minutes has been provided to the patient in terms of direct patient care, frequent reevaluation, consultation with hospitalist, review and interpretation of medical data and results, and management of potentially life-threatening conditions. This is all outside of any medical procedures. Discharge Plan Discharge Clinical Impression: Rhabdomyolysis, Acute kidney injury superimposed on CKD, Acute hypoxic respiratory failure, Elevated troponin Patient Disposition: Admitted As Inpatient Print Language: [place]
--- NOTE | 2025-07-07 14:10 | ECG_ITS ---
Test Reason : TROP ELEVATE Blood Pressure : */* mmHG Vent. Rate : 58 BPM Atrial Rate : 58 BPM P-R Int : 210 ms QRS Dur : 126 ms QT Int : 472 ms P-R-T Axes : * -29 13 degrees QTcB Int : 463 ms Sinus bradycardia with 1st degree A-V block Right bundle branch block Abnormal ECG When compared with ECG of 13-May-2025 14:07, No significant change was found Referred By: Shirin Hernández Electronically Signed By: CHOLO TAMAYO
--- NOTE | 2025-07-07 14:47 | ECG_ITS ---
Test Reason : REPEAT Blood Pressure : */* mmHG Vent. Rate : 64 BPM Atrial Rate : 64 BPM P-R Int : 168 ms QRS Dur : 138 ms QT Int : 496 ms P-R-T Axes : -18 -52 5 degrees QTcB Int : 511 ms Artifact in tracing Normal sinus rhythm Right bundle branch block Abnormal ECG When compared with ECG of 07-Jul-2025 14:18, No significant changes seen Referred By: Shirin Hernández Electronically Signed By: CHOLO TAMAYO
[2025-07-07] MEDS: Calcium Gluconate/NaCl,Iso-Osm 1 GM/50 ML PLAST..BAG IV (14:53)
[2025-07-07 15:54] LABS: Troponin-I High Sensitivity 55.6 ng/L (<3.5-35.0)
--- NOTE | 2025-07-07 16:25 | PC.NURSE ---
Patient O2 dropped to 87% RA Applied 4L NC reassessed, patient O2 97% Lowered O2 2L patient O2 94% Patient O2 then dropped to 88%, patient coughed up green phlem and O2 michele to 95% Increased O2 to 3L for comfort
[2025-07-07 17:13] LABS: Appearance Urine Cloudy; Glucose Urine UA Negative (Negative); PH 5.0 (5.0-9.0); Specific Gravity - Urine 1.020 (1.005-1.025); UMIC TRIGGER UACC YES
--- OUTSIDE RECORDS SUMMARY | 2025-07-07 17:20 | XMS_ITS | Clinical Summary ---
Author Organization [facility] Address [address] [address] Phone Care Team Providers Care Entry Level Finance Name Role Phone Oli Grant OCCUPATIONAL THER Primary Care Provider + Encounters Date Type Department Care Team Description 05/16/2025 Orders Only [facility] [address] [place], [place] [phone] Homehealth, Interface ProviderMD from Last 3 Months [...] file Medical Devices Not on file Insurance [facility] MEDIC[facility] REPLACEMENT MEDICARE REPLACEMENT MEDICARE REPLACEMENT [facility] MED[facility] REPLACEMENT Member Subscriber Plan / Payer (Ef fective 2024-Present) Name:Raad Antunez Relation to Subscriber:Self Name:AntunezRaad Payer ID:[id number] (NAIC) Type:Medicare Address: [place] [id number] [facility] MEDIC[facility] REPLACEMENT Care Teams Entry Level Finance Relationship Specialty Start Date End Date Oli Grant NP [address] [place] [address] PCP - General Nurse Practitioner 05/16/25 Additional Source Comments The information contained in this document represents components of the legal health record. It is not the complete legal health record.[facility]
--- NOTE | 2025-07-07 19:04 | PHA.MEDREC ---
Pharmacy Consult ? Medication Reconciliation Pharmacy has completed the medication reconciliation.med rec complete, spoke to patient and he was able to list his medications. I was not able to confirm this with [facility], as no claims history is crossing over and they are closed at night
[2025-07-07] MEDS: Lactated Ringers 1,000 ML 100 ML IVCONT (19:27)
--- NOTE | 2025-07-07 20:54 | PM.IMHP ---
History of Present Illness Date of Service: 07/07/25 Chief Complaint: Unwitnessed fall at home Pt is an 84-year-old male with a PMH significant for?HTN, HLD who presents to the ED for evaluation after unwitnessed fall at home with prolonged downtime. Pt reports he was at home watching TV last night around 18:00 when he got out of chair to go to the bathroom and slipped on the floor as he was barefoot and not wearing slippers or non-slip socks. States he landed on his right side and didn't fall hard . No headstrike. Pt found himself too tired and weak to pull himself up, and he fell asleep on the floor. Denies LOC. His daughter found him this morning on the floor when she checked on him after he was not picking up his phone. No N/V/D. Had been eating and drinking normally up until then. Was recently in rehab. Currently denies any significant musculoskeletal pain. In the ED pt's labs were significant for creatinine 2.51 (previous 1.42), AST 145, ALT 50, CPK 3086, and serial troponins 65.[address] of head negative for acute intracranial abnormality, but showed global cerebral atrophy. CT of cervical and lumbar spine negative for acute fracture but showing multilevel cervical thoracic spondylosis concerning for DISH or CPPD. CXR negative for acute active pulmonary disease. Pt was treated in the ED with IVF, acetaminiphen, calcium cluconate, and Zosyn. Pt is admitted to the hospital for rhabdomylelitis and JOAN in the setting of unwitnessed fall at home with prolonged downtime. Review of Systems Review of Systems: Yes all other systems are reviewed and are negative [facility] Medical History Sepsis Pyuria Incomplete emptying of bladder Benign prostatic hyperplasia with lower urinary tract symptoms Nocturia BPH (benign prostatic hyperplasia) Family History Sister Diabetes Breast cancer Lung cancer Surgical History History of appendectomy History of back surgery Social History Household Members: Children Household Members Other:: a daughter [facility] Do you presently have visiting nurse or other home services: No Comment: sitter Patient Tobacco Use Status: Never used Tobacco e-Cigarette/Vaping Use: Never Used Use of substances other than those prescribed or required for medical reasons: No Advance Directives: Yes Advance Directives on File: Yes Advance Directives Date on File: 05/13/25 Do you have a plan to hurt others: No Plan service: No Current occupational status: retired Cognitive needs: No Hearing needs: No Vision needs: No Meds Allergies Allergy/AdvReac Type Severity Reaction Status Date / Time No Known Allergies Allergy Verified 07/07/25 12:48 Active Medications: Current Medications Acetaminophen (Acetaminophen 325 Mg Tablet) 650 mg PO Q6H PRN PRN Reason: Pain, Mild 1-3,fever,headache Calcium Carbonate (Calcium Carbonate 750 Mg Tab.Chew) 750 mg PO Q4H PRN PRN Reason: Heartburn Heparin Sodium (Porcine) (Heparin Sodium,Porcine 5,000 Unit/Ml Vial) 5,000 unit SUBCUT Q12H [facility] Last Admin: 07/07/25 19:27 Dose: 5,000 unit Lactated Ringer's (Lr) 1,000 mls @ 999 mls/hr IVCONT .Q1H1M [facility] Last Admin: 07/07/25 19:27 Dose: 100 mls/hr Magnesium Hydroxide (Milk Of Magnesia 30 Ml Oral.Susp) 30 ml PO DAILY PRN PRN Reason: Constipation Melatonin (Melatonin 3 Mg Tablet) 6 mg PO BEDTIME PRN PRN Reason: Insomnia Ondansetron HCl (Ondansetron Hcl 4 Mg/2 Ml Vial) 4 mg IVPUSH Q8H PRN PRN Reason: Nausea and Vomiting Sodium Chloride (0.9 % Sodium Chloride Flush 3 Ml Syringe) 3 ml IVFLUSH QSHIFT [facility] Home Medications ?Medication ?Instructions ?Recorded ?Confirmed ?Last Taken ?Type acetaminophen 500 mg capsule 500 mg PO Q6H PRN Pain 06/25/21 07/07/25 Unknown History vit C 250 mg-vit E 90 mg-zinc 40 1 tab PO DAILY 05/14/25 07/07/25 05/13/25 History mg-copper 1 [id number] capsule (PreserVision AREDS-2) Physical Exam Vital Signs and Narrative: Vital Signs: Last Vital Signs Temp 98.8 F 07/07/25 20:00 Pulse 63 07/07/25 20:00 Resp 14 07/07/25 20:00 BP 127/63 07/07/25 20:00 Pulse Ox 91 L 07/07/25 20:00 O2 Del Method Nasal Cannula 07/07/25 20:00 O2 Flow Rate 3 07/07/25 20:00 BMI result Body Mass Index 28.6 General: AOx3, no acute distress Resp: CTA bilaterally CVS: S1, S2, RRR GI: +BS, NT, no distention Skin: Warm, dry Neuro: Cranial nerves II-XII grossly intact bilaterally. Motor grossly intact bilaterally Muskuloskeletal: global though symmetric weakness noted Extremities: No edema Psych: Appropriate affect Results Labs 07/07/25 12:58 07/07/25 12:58 Labs: Laboratory Results - last 24 hr 07/07/25 07/07/25 07/07/25 12:58 15:08 16:59 MCV 91.8 MCH 31.7 MCHC 34.5 RDW 12.6 Plt Count 170 D MPV 10.2 Immature Gran % (Auto) 0.3 Neut % (Auto) 80.3 H Lymph % (Auto) 11.4 L [place] % (Auto) 7.8 Eos % (Auto) 0.0 Baso % (Auto) 0.2 Lymph # (Auto) 0.7 L [place] # (Auto) 0.5 Eos # (Auto) 0.0 Baso # (Auto) 0.0 Abs Immat Gran (auto) 0.02 Absolute Neuts (auto) 5.0 Absolute Nucleated RBC 0.000 Nucleated RBC % (auto) 0.0 Anion Gap 19 Estim Creat Clear Calc 18.9 Estimated GFR 24 Random Glucose 127 H Lactic Acid 1.5 Calcium 8.3 L Total Bilirubin 0.4 AST 145 H ALT 50 H Alkaline Phosphatase 52 Total Creatine Kinase 3086 H Troponin I High Sens 65.4 H D 55.6 H Total Protein 7.3 Albumin 4.2 Urine Color Yellow Urine Appearance Cloudy Urine pH 5.0 Ur Specific [place] 1.020 Urine Protein 300 (3+) H Urine Glucose (UA) Negative Urine Ketones 15 Urine Blood Large (3+) H Urine Nitrite Negative Ur Leukocyte Esterase Negative Urine RBC 0-2 Urine WBC 0-5 Ur Squamous Epith Cells 0-2 Urine Bacteria None Seen Hyaline Casts 11-20 Imaging Radiologist's Impressions: Impressions Cervical Spine CT 07/07/25 13:09 IMPRESSION: 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 No acute fracture or trauma-related listhesis. Fleischner guidelines were followed. Electronically signed by: Saeed Ratliff MD 07/07/2025 01:40 PM EST RP Head CT 07/07/25 13:09 IMPRESSION: No acute fracture, bony calvarium. No acute intracranial hemorrhage. White matter disease likely related to small vessel occlusive disease. Global cerebral atrophy. 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 Pannus formation periodontal C1 region. Consider arthritis. Electronically signed by: Saeed Ratliff MD 07/07/2025 01:32 PM EST RP Lumbar Spine X-Ray 07/07/25 15:32 IMPRESSION: Multilevel thoracolumbar spondylosis resulting in grade 1 anterolisthesis at L4-5. No overt acute fracture or trauma-related listhesis. Electronically signed by: Saeed Ratliff MD 07/07/2025 03:44 PM EST RP Chest X-Ray 07/07/25 16:19 IMPRESSION: No active pulmonary disease. Electronically signed by: Andrzej Valderrama MD 07/07/2025 04:30 PM EST RP Assessment and Plan (1) Acute kidney injury superimposed on CKD: Status: Acute (2) Rhabdomyolysis: Status: Acute Plan Pt is an 84-year-old male with a PMH significant for?HTN, HLD who presents to the ED for evaluation after unwitnessed fall at home with prolonged downtime. Pt is admitted to the hospital for rhabdomylelitis and JOAN in the setting of unwitnessed fall at home with prolonged downtime. Rhabdomyelitis In the setting of unwitnessed mechanical fall at home with prolonged 12+ hour downtime CPK 3086 IVF Trend labs Check viral panel PT evaluation JOAN on CKD3 Creatinine 2.51, previous 1.42 In the setting of above IVF Trend labs Elevated troponins Flat at 65.4 and 55.6 In the setting of increased demand Pt asymptomatic HTN BP has been soft, hold amlodipine and atenolol for now Full Code Attending:?Dr. Montoya DVT Prophylaxis: Lovenox Pt will require a hospitalization of at least two nights for treatment of rhabdo and JOAN in the setting of unwitnessed mechanical fall at home with prolonged downtime. Pt will require IVF and close monitoring of labs with eventual PT evaluation for safe disposition. . Quality Stroke Does the patient have a stroke diagnosis?: No VTE Prior VTE?: No VTE Risk Level:: Medical - moderate - high VTE Device Contraindication: Treatment Not Indicated VTE Drug Contraindication: N/A - Med Ordered
--- NOTE | 2025-07-07 21:31 | PC.NURSE ---
Assumed care of this Pt at 2044.
[2025-07-07 23:25] LABS: Resp Syncy Virus RNA Qual PCR NEGATIVE (Negative); SARS COV2 PCR INHOUSE NEGATIVE (Negative)
[2025-07-08] MEDS: Lactated Ringers 1,000 ML 80 ML IVCONT
[2025-07-08] MEDS: 0.9 % Sodium Chloride Flush 3 ML SYRINGE IVFLUSH (00:55)
[2025-07-08 04:14] VITALS: BP 126/70; PULSE 73; RESP 17; TEMP 36.7; O2SAT 94
[2025-07-08 04:36] LABS: Anion Gap 16 (12-20); Blood Urea Nitrogen 49 mg/dL (9-16); Calcium 7.8 mg/dL (8.4-10.2); Carbon Dioxide 13 mmol/L (22-29); Chloride 119 mmol/L (96-108); Creatinine Clr Calc Pharmacy 25.7; Estimated Glomerular Filt Rate 35; Potassium 4.0 mmol/L (3.3-5.1); Sodium 144 mmol/L (135-145)
[2025-07-08 06:13] VITALS: BP 123/60; PULSE 73; RESP 20; O2SAT 93
[2025-07-08 07:22] VITALS: BMI 26.9
[2025-07-08 07:36] VITALS: BP 135/61; PULSE 75; RESP 18; O2SAT 91
[2025-07-08 08:00] VITALS: BP 128/58; PULSE 70; RESP 18; TEMP 36.4; O2SAT 92
[2025-07-08] MEDS: Lactated Ringers 1,000 ML 100 ML IVCONT (15:04)
[2025-07-08 16:00] VITALS: BP 138/73; PULSE 68; RESP 19; TEMP 36.7; O2SAT 93
--- NOTE | 2025-07-08 17:46 | P.PNIM_ITS ---
Subjective Subjective Date of Service: 07/08/25 Interval History: Reports feels a little weak otherwise no acute medical complaints Creatinine improved to 2.51--> 1.85 CPK increased from 3086--> 3369 Spoke to daughter who visited pt multiple times today Daughter reports pt seems confused than baseline, and had previous episode of hospital delirium during last admission Review of Systems Review of Systems: Yes all other systems are reviewed and are negative Physical Exam 2 Exam: Exam: General: AOx3, no acute distress Resp: CTA bilaterally CVS: S1, S2, RRR GI: +BS, NT, no distention Skin: Warm, dry Neuro: Cranial nerves II-XII grossly intact bilaterally. Motor grossly intact bilaterally Muskuloskeletal: global though symmetric weakness noted; lower extremities 3/5 strength Extremities: No edema Psych: Appropriate affect Vital Signs: Vital Signs: Last Vital Signs Temp 98.0 F 07/08/25 16:00 Pulse 68 07/08/25 16:00 Resp 19 07/08/25 16:00 BP 138/73 07/08/25 16:00 Pulse Ox 93 07/08/25 16:00 O2 Del Method Nasal Cannula 07/08/25 16:00 O2 Flow Rate 3 07/08/25 16:00 BMI result Body Mass Index 26.9 Objective Data Active Medications Acetaminophen (Acetaminophen 325 Mg Tablet) 650 mg PO Q6H PRN PRN Reason: Pain, Mild 1-3,fever,headache Atenolol (Atenolol 50 Mg Tablet) 50 mg PO DAILY [facility]; Protocol Last Admin: 07/08/25 08:25 Dose: 50 mg Documented By: VALERIY Calcium Carbonate (Calcium Carbonate 750 Mg Tab.Chew) 750 mg PO Q4H PRN PRN Reason: Heartburn Heparin Sodium (Porcine) (Heparin Sodium,Porcine 5,000 Unit/Ml Vial) 5,000 unit SUBCUT Q12H [facility] Last Admin: 07/08/25 17:39 Dose: 5,000 unit Documented By: VALERIY Lactated Ringer's (Lr) 1,000 mls @ 100 mls/hr IVCONT .Q10H [facility] Last Admin: 07/08/25 15:04 Dose: 100 mls/hr Documented By: VALERIY Magnesium Hydroxide (Milk Of Magnesia 30 Ml Oral.Susp) 30 ml PO DAILY PRN PRN Reason: Constipation Melatonin (Melatonin 3 Mg Tablet) 6 mg PO BEDTIME PRN PRN Reason: Insomnia Ondansetron HCl (Ondansetron Hcl 4 Mg/2 Ml Vial) 4 mg IVPUSH Q8H PRN PRN Reason: Nausea and Vomiting Sodium Chloride (0.9 % Sodium Chloride Flush 3 Ml Syringe) 3 ml IVFLUSH QSHIFT [facility] Last Admin: 07/08/25 15:22 Dose: Not Given Documented By: VALERIY Non-Admin Reason: IV Running Labs 07/07/25 12:58 07/08/25 03:38 Labs: Laboratory Results - last 24 hr 07/07/25 07/08/25 22:38 03:38 Anion Gap 16 Estim Creat Clear Calc 25.7 Estimated GFR 35 Random Glucose 90 Calcium 7.8 L D Total Creatine Kinase 3369 H Influenza Type A (PCR) NEGATIVE Influenza Type B (PCR) NEGATIVE RSV RNA Qual (PCR) NEGATIVE SARS-CoV-2 RNA (RT-PCR) NEGATIVE Assessment and Plan (1) Rhabdomyolysis: Status: Acute (2) Acute kidney injury superimposed on CKD: Status: Acute Plan Pt is an 84-year-old male with a PMH significant for?HTN, HLD who presents to the ED for evaluation after unwitnessed fall at home with prolonged downtime. Pt is admitted to the hospital for rhabdomylelitis and JOAN in the setting of unwitnessed fall at home with prolonged downtime. Rhabdomyelitis In the setting of unwitnessed mechanical fall at home with prolonged 12+ hour downtime CPK 3086-->3369 Continue IVF Trend labs PT evaluation recommends STR JOAN on CKD3 Creatinine improving from 2.51-->1.85 In the setting of above Continue IVF Trend labs Elevated troponins Flat at 65.4 and 55.6 In the setting of increased demand Pt asymptomatic HTN BP has been soft, hold amlodipine and atenolol for now Full Code Attending:?Dr. Montoya DVT Prophylaxis: Lovenox Pt requires continued hospitalization as JOAN and rhabdomyolysis have not resolved. pt is receiving IVF with improvement to creatinine, though no improvement yet to CPK. Pt will need additional monitoring of labs before eventual discharge to [facility]. Quality Stroke Does the patient have a stroke diagnosis?: No VTE Prior VTE?: No VTE Risk Level:: Medical - moderate - high VTE Device Contraindication: Treatment Not Indicated VTE Drug Contraindication: N/A - Med Ordered
[2025-07-08 20:00] VITALS: BP 146/73; PULSE 74; RESP 20; TEMP 37.4; O2SAT 91
[2025-07-09] MEDS: Lactated Ringers 1,000 ML 100 ML IVCONT ×3 (00:27→19:57)
[2025-07-09 04:00] VITALS: BP 169/69; PULSE 76; RESP 18; TEMP 36; O2SAT 93
[2025-07-09 08:00] VITALS: BP 170/71; PULSE 73; RESP 18; TEMP 36.6; O2SAT 93
[2025-07-09 09:49] LABS: Anion Gap 11 (12-20); Blood Urea Nitrogen 33 mg/dL (9-16); Calcium 8.4 mg/dL (8.4-10.2); Carbon Dioxide 18 mmol/L (22-29); Chloride 122 mmol/L (96-108); Creatinine Clr Calc Pharmacy 33.2; Estimated Glomerular Filt Rate 48; Potassium 3.4 mmol/L (3.3-5.1); Sodium 148 mmol/L (135-145)
--- NOTE | 2025-07-09 09:52 | MHC.CM.PN ---
Addendum entered by Daniela Steve RN 07/09/25 13:34: Bed offer accepted @ [facility], who will submit for auth. Addendum entered by Daniela Steve RN 07/09/25 11:38: Met with daughter, Georgette, at bedside. Daughter clarified that she does not live with patient but lives [address] and is at patient's house daily. Reviewed [facility] rec and bed offers. She will call w/ decision. Original Note: Patient reports he lives in an apt w/ his daughters. Has a walker, but says he doesn't use it as much as he should. Reports he is mostly independent w/ ADL's, but daughters assist PRN. PCP Oli Denise [facility] HCP on file and verified. DP: PT rec [facility]. Patient is agreeable. No facility preference. Notes that [facility] is not first choice, but he would return there if no other local bed offers. BLS transport. CM will continue to follow.
--- NOTE | 2025-07-09 15:35 | P.PNIM_ITS ---
Subjective Subjective Date of Service: 07/09/25 Interval History: Pt noted to be hypoxic into the lower 80s on RA Pt himself denies SOB or difficulty breathing, though has noticed a new cough the past day or so Pt overall reports feeling okay, and better than yesterday Is initially adamant that he will not go to short-term rehab, though eventually agrees Had some increased confusion and hospital delirium last night; has been comfortable and oriented today Creatinine and CPK continue to improve Review of Systems Review of Systems: Yes all other systems are reviewed and are negative Physical Exam 2 Exam: Exam: General: AOx3, no acute distress. Appears weak, frail Resp: CTA bilaterally CVS: S1, S2, RRR GI: +BS, NT, no distention Skin: Warm, dry Muskuloskeletal: global though symmetric weakness noted; lower extremities 3/5 strength Neuro: Cranial nerves II-XII grossly intact bilaterally. Motor grossly intact bilaterally Extremities: No edema Psych: Appropriate affect Vital Signs: Vital Signs: Last Vital Signs Temp 97.9 F 07/09/25 08:00 Pulse 73 07/09/25 08:00 Resp 18 07/09/25 08:00 BP 170/71 H 07/09/25 08:00 Pulse Ox 93 07/09/25 08:00 O2 Del Method Nasal Cannula 07/09/25 08:00 O2 Flow Rate 3.0 07/09/25 08:00 BMI result Body Mass Index 26.9 Objective Data Active Medications Acetaminophen (Acetaminophen 325 Mg Tablet) 650 mg PO Q6H PRN PRN Reason: Pain, Mild 1-3,fever,headache Atenolol (Atenolol 50 Mg Tablet) 50 mg PO DAILY [facility]; Protocol Last Admin: 07/09/25 08:07 Dose: 50 mg Documented By: VALERIY Calcium Carbonate (Calcium Carbonate 750 Mg Tab.Chew) 750 mg PO Q4H PRN PRN Reason: Heartburn Heparin Sodium (Porcine) (Heparin Sodium,Porcine 5,000 Unit/Ml Vial) 5,000 unit SUBCUT Q12H [facility] Last Admin: 07/09/25 05:23 Dose: 5,000 unit Documented By: DESTINEE Lactated Ringer's (Lr) 1,000 mls @ 100 mls/hr IVCONT .Q10H [facility] Last Admin: 07/09/25 10:18 Dose: 100 mls/hr Documented By: VALERIY Magnesium Hydroxide (Milk Of Magnesia 30 Ml Oral.Susp) 30 ml PO DAILY PRN PRN Reason: Constipation Melatonin (Melatonin 3 Mg Tablet) 6 mg PO BEDTIME PRN PRN Reason: Insomnia Ondansetron HCl (Ondansetron Hcl 4 Mg/2 Ml Vial) 4 mg IVPUSH Q8H PRN PRN Reason: Nausea and Vomiting Sodium Chloride (0.9 % Sodium Chloride Flush 3 Ml Syringe) 3 ml IVFLUSH QSHIFT [facility] Last Admin: 07/09/25 08:09 Dose: Not Given Documented By: VALERIY Non-Admin Reason: IV Running Labs 07/07/25 12:58 07/09/25 09:14 Labs: Laboratory Results - last 24 hr 07/09/25 09:14 Hold Purple Top SEE NOTE Anion Gap 11 L Estim Creat Clear Calc 33.2 Estimated GFR 48 Random Glucose 82 Calcium 8.4 D Total Creatine Kinase 2138 H Microbiology Microbiology Results: Microbiology 07/07/25 16:59 Blood Culture - Preliminary Blood - Venous No growth after 24 hours. 07/07/25 16:59 Blood Culture - Preliminary Blood - Venous No growth after 24 hours. Assessment and Plan (1) Rhabdomyolysis: Status: Acute (2) Acute kidney injury superimposed on CKD: Status: Acute Plan Pt is an 84-year-old male with a PMH significant for?HTN, HLD who presents to the ED for evaluation after unwitnessed fall at home with prolonged downtime. Pt is admitted to the hospital for rhabdomylelitis and JOAN in the setting of unwitnessed fall at home with prolonged downtime. Rhabdomyelitis In the setting of unwitnessed mechanical fall at home with prolonged 12+ hour downtime CPK slowly improving, 3086-->3369-->2138 Continue gentle IVF Trend labs PT evaluation recommends STR JOAN on CKD3 Creatinine improving from 2.51-->1.85-->1.39 In the setting of above Continue IVF Trend labs Acute hypoxic respiratory failure Pt noted to be desatting into the low 80s on RA Improved to 90% with deep breathing Pt noted to have poor inspiratory effort CXR negative for acute cardiopulmonary disease Will check respiratory panel Incentive spirometry Elevated troponins Flat at 65.4 and 55.6 In the setting of increased demand Pt asymptomatic Question of dementia Family notes pt has been increasingly confused over the past year+, worse the past few months Pt with episodes of sundowning while in the hospital HTN BP has been soft, hold amlodipine and atenolol for now Full Code Attending:?Dr. Montoya DVT Prophylaxis: Lovenox Pt requires continued hospitalization as JOAN and rhabdomyolysis have not resolved. pt is receiving IVF with slow improvement to creatinine and CPK. Pt will need additional monitoring of labs before eventual discharge to [facility] [[email or web address] Stroke Does the patient have a stroke diagnosis?: No VTE Prior VTE?: No VTE Risk Level:: Medical - moderate - high VTE Device Contraindication: Treatment Not Indicated VTE Drug Contraindication: N/A - Med Ordered
[2025-07-09 15:50] VITALS: BP 165/77; PULSE 73; RESP 19; TEMP 37.5; O2SAT 91
[2025-07-09 16:51] LABS: Chlamydia pneumoniae PCR Not Detected (Not Detect.); Coronavirus 229E PCR Not Detected (Not Detect.); Coronavirus HKU1 PCR Not Detected (Not Detect.); Coronavirus NL63 PCR Not Detected (Not Detect.); Coronavirus OC43 PCR Not Detected (Not Detect.); RSV PCR Not Detected (Not Detect.); Rhino/Enterovirus PCR Not Detected (Not Detect.)
[2025-07-09 17:37] LABS: SARS-CoV-2 PCR Not Detected (Not Detect.)
[2025-07-09 18:27] VITALS: O2SAT 91
[2025-07-09 19:12] VITALS: TEMP 36.9
[2025-07-09 19:25] VITALS: BP 160/50; RESP 20; TEMP 37.2; O2SAT 90
[2025-07-10 03:48] VITALS: BP 152/68; PULSE 70; RESP 18; TEMP 37.3; O2SAT 95
[2025-07-10] MEDS: Lactated Ringers 1,000 ML 100 ML IVCONT (05:40)
--- NOTE | 2025-07-10 05:44 | PC.NURSE ---
1930-Previous shift had placed oxymask at 10 liters for this patient due to decreased o2 sat levels. Patient noted to be 90% on rounds, also noted to dip mask off to lower mouth chin area at times. Explanation of oxygen importance and monitored frequently. Patient was 97% and oxygen was lowered down slowly and at 6 liters and able to maintain 95%. Will continue to monitor and wean as able. HOB raised, no color changes, no stated pain or discomforts. see shift assessment for full details.
[2025-07-10 05:51] LABS: Anion Gap 13 (12-20); Blood Urea Nitrogen 26 mg/dL (9-16); Calcium 8.1 mg/dL (8.4-10.2); Carbon Dioxide 18 mmol/L (22-29); Chloride 121 mmol/L (96-108); Creatinine Clr Calc Pharmacy 38.5; Estimated Glomerular Filt Rate 57; Potassium 2.9 mmol/L (3.3-5.1); Sodium 149 mmol/L (135-145)
[2025-07-10] MEDS: Potassium Chloride Packet 20 MEQ PACKET 40 MEQ PO (06:12)
--- NOTE | 2025-07-10 07:35 | P.PNIM_ITS ---
Subjective Subjective Date of Service: 07/10/25 Interval History: Pt was noted to be hypoxic yesterday; tested positive for parainfluenza 1 virus Potassium this morning low at 2.9 Sodium elevated 149 Creatinine normalized to 1.2 CPK continues to downtrend 722 Reports feeling okay, but weak No clear-cut acute complaints Review of Systems Review of Systems: Yes all other systems are reviewed and are negative Physical Exam 2 Exam: Exam: General: AOx3, no acute distress. Appears weak, frail Resp: Coarse breath sounds bilaterally CVS: S1, S2, RRR GI: +BS, NT, no distention Skin: Warm, dry Muskuloskeletal: global though symmetric weakness noted; lower extremities 2/5 strength Neuro: Cranial nerves II-XII grossly intact bilaterally. Motor grossly intact bilaterally Extremities: No edema Psych: Appropriate affect Vital Signs: Vital Signs: Last Vital Signs Temp 99.2 F 07/10/25 03:48 Pulse 70 07/10/25 03:48 Resp 18 07/10/25 03:48 BP 152/68 H 07/10/25 03:48 Pulse Ox 95 07/10/25 03:48 O2 Del Method Oxymask 07/10/25 03:48 O2 Flow Rate 6 07/10/25 03:48 BMI result Body Mass Index 26.9 Objective Data Active Medications Acetaminophen (Acetaminophen 325 Mg Tablet) 650 mg PO Q6H PRN PRN Reason: Pain, Mild 1-3,fever,headache Last Admin: 07/09/25 18:12 Dose: 650 mg Documented By: VALERIY Atenolol (Atenolol 50 Mg Tablet) 50 mg PO DAILY [facility]; Protocol Last Admin: 07/09/25 08:07 Dose: 50 mg Documented By: VALERIY Calcium Carbonate (Calcium Carbonate 750 Mg Tab.Chew) 750 mg PO Q4H PRN PRN Reason: Heartburn Guaifenesin/Dextromethorphan (Guaifenesin Dm 200/20/10 Ml 10 Ml Syrup) 10 ml PO Q4H PRN PRN Reason: Cough Heparin Sodium (Porcine) (Heparin Sodium,Porcine 5,000 Unit/Ml Vial) 5,000 unit SUBCUT Q12H [facility]CLUD[facility] Last Admin: 07/10/25 05:38 Dose: 5,000 unit Documented By: BRUNO Magnesium Hydroxide (Milk Of Magnesia 30 Ml Oral.Susp) 30 ml PO DAILY PRN PRN Reason: Constipation Melatonin (Melatonin 3 Mg Tablet) 6 mg PO BEDTIME PRN PRN Reason: Insomnia Ondansetron HCl (Ondansetron Hcl 4 Mg/2 Ml Vial) 4 mg IVPUSH Q8H PRN PRN Reason: Nausea and Vomiting Sodium Chloride (0.9 % Sodium Chloride Flush 3 Ml Syringe) 3 ml IVFLUSH QSHIFT [facility] Last Admin: 07/09/25 23:48 Dose: Not Given Documented By: BRUNO Non-Admin Reason: IV Running Labs 07/07/25 12:58 07/10/25 05:18 Labs: Laboratory Results - last 24 hr 07/09/25 07/09/25 07/10/25 09:14 15:48 05:18 Hold Purple Top SEE NOTE Anion Gap 11 L 13 Estim Creat Clear Calc 33.2 38.5 Estimated GFR 48 57 Random Glucose 82 83 Calcium 8.4 D 8.1 L Total Creatine Kinase 2138 H 722 H Respiratory Panel [place] See Note Adenovirus (Rapid PCR) Not Detected B.pert (TEM-PCR) Not Detected B.parapertussis DNA PCR Not Detected C. pneumoniae DNA (PCR) Not Detected Coronavirus OC43 (PCR) Not Detected Coronavirus HKU1 (PCR) Not Detected Coronavirus 229E (PCR) Not Detected Coronavirus NL63 (PCR) Not Detected Human Metapneumovir PCR Not Detected Influenza A (RT-PCR) Not Detected Influenza A (H1) PCR TNP Influ A (H1/09) PCR TNP Influenza A (H3) PCR TNP Influenza B (RT-PCR) Not Detected M. pneumoniae (PCR) Not Detected Parainfluenza 1 (PCR) Detected A Parainfluenza 2 (PCR) Not Detected Parainfluenza 3 (PCR) Not Detected Parainfluenza 4 (PCR) Not Detected RSV (PCR) Not Detected Entero/Rhino (PCR) Not Detected SARS-CoV-2 RNA (RT-PCR) Not Detected Microbiology Microbiology Results: Microbiology 07/07/25 16:59 Blood Culture - Preliminary Blood - Venous No growth after 48 hours. 07/07/25 16:59 Blood Culture - Preliminary Blood - Venous No growth after 48 hours. Assessment and Plan (1) Rhabdomyolysis: Status: Acute (2) Acute kidney injury superimposed on CKD: Status: Acute Plan Pt is an 84-year-old male with a PMH significant for?HTN, HLD who presents to the ED for evaluation after unwitnessed fall at home with prolonged downtime. Pt is admitted to the hospital for rhabdomylelitis and JOAN in the setting of unwitnessed fall at home with prolonged downtime. Rhabdomyelitis In the setting of unwitnessed mechanical fall at home with prolonged 12+ hour downtime CPK slowly improving after IVF, 3086-->3369-->2138-->722 Will stop IVF today Trend labs PT evaluation recommends STR Acute hypoxic respiratory failure Pt noted to be detoxing into the 80s on RA CXR negative Respiratory panel positive for parainfluenza virus 1 Supportive care, droplet precautions Titrate supplemental O2 >92, wean as tolerated Incentive spirometry JOAN on CKD3, resolved Creatinine now resolved after IVF, 2.51-->1.85-->1.39--> 1.20 In the setting of above Trend labs Hypokalemia Potassium 2.9 this morning Will supplement with p.o. and IV potassium Hypernatremia Sodium mildly elevation of 149 We will give D5 half NS x500cc Trend labs Elevated troponins Flat at 65.4 and 55.6 In the setting of increased demand Pt asymptomatic Question of dementia Family notes pt has been increasingly confused over the past year+, worse the past few months Pt with episodes of sundowning while in the hospital HTN BP has been soft, hold amlodipine and atenolol for now Full Code Attending:?Dr. Montoya DVT Prophylaxis: Lovenox Pt requires continued hospitalization as JOAN and rhabdomyolysis have not resolved. pt is receiving IVF with slow improvement to creatinine and CPK. Pt will need additional monitoring of labs before eventual discharge to [facility]. Quality Stroke Does the patient have a stroke diagnosis?: No VTE Prior VTE?: No VTE Risk Level:: Medical - moderate - high VTE Device Contraindication: Treatment Not Indicated VTE Drug Contraindication: N/A - Med Ordered
[2025-07-10] MEDS: Potassium Chloride/H20 10 MEQ/100 ML PIGGYBACK 100 MEQ IV (08:07)
[2025-07-10 08:29] VITALS: BP 146/64; PULSE 71; RESP 18; TEMP 37.2; O2SAT 95
[2025-07-10] MEDS: Potassium Chloride/H20 10 MEQ/100 ML PIGGYBACK 80 MEQ IV (09:37)
[2025-07-10 16:57] VITALS: BP 160/80; PULSE 64; RESP 18; TEMP 37.3; O2SAT 94
[2025-07-10 19:30] VITALS: BP 160/67; PULSE 70; RESP 18; TEMP 36.8; O2SAT 100
[2025-07-10 20:00] VITALS: BP 160/67; PULSE 70; RESP 18; TEMP 36.8; O2SAT 100
[2025-07-10 21:00] VITALS: O2SAT 97
[2025-07-10] MEDS: 0.9 % Sodium Chloride Flush 3 ML SYRINGE IVFLUSH (21:32)
[2025-07-11] VITALS: O2SAT 97
[2025-07-11 02:58] VITALS: BP 150/71; PULSE 63; RESP 18; TEMP 36.2; O2SAT 95
[2025-07-11 06:37] LABS: Hematocrit 29.2 % (42.0-52.0); Hemoglobin 9.9 g/dl (14.0-18.0); Mean Corpuscular HGB Conc 33.9 g/dl (31.0-36.0); Mean Corpuscular Hemoglobin 31.0 pg (27.0-33.0); Mean Corpuscular Volume 91.5 fL (80.0-98.0); NRBC Abs Auto 0.000 X10*3/uL (0.0-0.012); NRBC Pct Auto 0.0 /100WBC (0.0-0.2); Platelet Count 247 X10*3/uL (160-400); Red Blood Count 3.19 X10*6/uL (4.60-5.80); White Blood Count 6.9 X10*3/uL (4.8-10.8)
[2025-07-11 07:18] LABS: Anion Gap 10 (12-20); Blood Urea Nitrogen 20 mg/dL (9-16); Calcium 8.1 mg/dL (8.4-10.2); Carbon Dioxide 20 mmol/L (22-29); Chloride 117 mmol/L (96-108); Creatinine Clr Calc Pharmacy 42.8; Estimated Glomerular Filt Rate > 60; Potassium 2.9 mmol/L (3.3-5.1); Sodium 144 mmol/L (135-145)
[2025-07-11 08:00] VITALS: BP 146/70; PULSE 69; RESP 18; TEMP 37.2; O2SAT 94
[2025-07-11 08:33] LABS: Magnesium 1.6 mg/dL (1.6-2.6)
[2025-07-11] MEDS: Potassium Chloride Packet 20 MEQ PACKET 40 MEQ PO (08:43)
[2025-07-11] MEDS: Potassium Chloride/H20 10 MEQ/100 ML PIGGYBACK 100 MEQ IV (08:43)
[2025-07-11] MEDS: 0.9 % Sodium Chloride Flush 3 ML SYRINGE IVFLUSH ×2 (08:43→18:24)
[2025-07-11] MEDS: Potassium Chloride/H20 10 MEQ/100 ML PIGGYBACK 75 MEQ IV ×3 (10:18→12:53)
--- NOTE | 2025-07-11 13:27 | MHC.CM.PN ---
PER MD ROUNDS, PT NOT MEDICALLY CLEARED DCP LIKELY STR PENDING BED OFFER
[2025-07-11 15:14] VITALS: BP 155/69; PULSE 62; RESP 16; TEMP 36.7; O2SAT 94
--- NOTE | 2025-07-11 16:00 | P.PNIM_ITS ---
Subjective Subjective Date of Service: 07/11/25 Interval History: Reports feeling depressed and wishes to take something so he will not wake up tomorrow Has been feeling chronically depressed for a long time Overall feels weak and tired Denies more specific medical complaints Creatinine normalized; CPK continues to improve Review of Systems Review of Systems: Yes all other systems are reviewed and are negative Physical Exam 2 Exam: Exam: General: AOx3, no acute distress. Appears weak, frail Resp: Coarse breath sounds bilaterally CVS: S1, S2, RRR GI: +BS, NT, no distention Skin: Warm, dry Muskuloskeletal: global though symmetric weakness noted; lower extremities 2/5 strength Neuro: Cranial nerves II-XII grossly intact bilaterally. Motor grossly intact bilaterally Extremities: No edema Psych: Flat affect Vital Signs: Vital Signs: Last Vital Signs Temp 98.0 F 07/11/25 15:14 Pulse 62 07/11/25 15:14 Resp 16 07/11/25 15:14 BP 155/69 H 07/11/25 15:14 Pulse Ox 94 07/11/25 15:14 O2 Del Method Nasal Cannula 07/11/25 15:14 O2 Flow Rate 4 07/11/25 15:14 BMI result Body Mass Index 26.9 Objective Data Active Medications Acetaminophen (Acetaminophen 325 Mg Tablet) 650 mg PO Q6H PRN PRN Reason: Pain, Mild 1-3,fever,headache Last Admin: 07/09/25 18:12 Dose: 650 mg Documented By: VALERIY Atenolol (Atenolol 50 Mg Tablet) 50 mg PO DAILY [facility]; Protocol Last Admin: 07/11/25 08:43 Dose: 50 mg Documented By: KAROLYN Calcium Carbonate (Calcium Carbonate 750 Mg Tab.Chew) 750 mg PO Q4H PRN PRN Reason: Heartburn Guaifenesin/Dextromethorphan (Guaifenesin Dm 200/20/10 Ml 10 Ml Syrup) 10 ml PO Q4H PRN PRN Reason: Cough Heparin Sodium (Porcine) (Heparin Sodium,Porcine 5,000 Unit/Ml Vial) 5,000 unit SUBCUT Q12H [facility] Last Admin: 07/11/25 05:37 Dose: 5,000 unit Documented By: BRUNO Magnesium Hydroxide (Milk Of Magnesia 30 Ml Oral.Susp) 30 ml PO DAILY PRN PRN Reason: Constipation Melatonin (Melatonin 3 Mg Tablet) 6 mg PO BEDTIME PRN PRN Reason: Insomnia Ondansetron HCl (Ondansetron Hcl 4 Mg/2 Ml Vial) 4 mg IVPUSH Q8H PRN PRN Reason: Nausea and Vomiting Sodium Chloride (0.9 % Sodium Chloride Flush 3 Ml Syringe) 3 ml IVFLUSH QSHIFT [facility] Last Admin: 07/11/25 08:43 Dose: 3 ml Documented By: KAROLYN Labs 07/11/25 05:28 07/11/25 14:58 Labs: Laboratory Results - last 24 hr 07/11/25 05:28 MCV 91.5 MCH 31.0 MCHC 33.9 RDW 12.9 Plt Count 247 D MPV 10.4 Absolute Nucleated RBC 0.000 Nucleated RBC % (auto) 0.0 Anion Gap 10 L Estim Creat Clear Calc 42.8 Estimated GFR > 60 Random Glucose 105 Calcium 8.1 L Magnesium 1.6 Total Creatine Kinase 239 H Assessment and Plan (1) Rhabdomyolysis: Status: Acute (2) Acute kidney injury superimposed on CKD: Status: Acute Plan Pt is an 84-year-old male with a PMH significant for?HTN, HLD who presents to the ED for evaluation after unwitnessed fall at home with prolonged downtime. Pt is admitted to the hospital for rhabdomylelitis and JOAN in the setting of unwitnessed fall at home with prolonged downtime. Rhabdomyelitis In the setting of unwitnessed mechanical fall at home with prolonged 12+ hour downtime CPK slowly improving after IVF, 3086-->3369-->2138-->722 Will stop IVF today Trend labs PT evaluation recommends STR Acute hypoxic respiratory failure in the setting of parainfluenza virus 1 Pt noted to be detoxing into the 80s on RA CXR negative; respiratory panel positive for parainfluenza virus 1 Supportive care, droplet precautions Titrate supplemental O2 >92, wean as tolerated Incentive spirometry JOAN on CKD3, resolved Creatinine now resolved after IVF, 2.51-->1.85-->1.39--> 1.20 In the setting of above Trend labs Hypokalemia Potassium 2.9 this morning Will supplement with p.o. and IV potassium Depression with vague SI Pt endorsing vague SI morning of 07/11, stating he wants to end it all and requests something to take so he will not wake up in the morning Denies any previous suicide attempt Spoke to family who report he has been making similar statements for forever , for at least the last 10-15 years Pt apparently has been depressed about all of his friends and his having already passed Has not sought outside therapy or treatment; not on antidepressents Will start on sertaline 25mg daily, increase to 50mg daily after 7 days if tolerates well 1:1 sitter for now, will get care team evaluation once medically cleared Hypernatremia, resolved Sodium mildly elevation of 149 on 07/10 Normalized after D5 half NS x500cc Trend labs Elevated troponins Flat at 65.4 and 55.6 In the setting of increased demand Pt asymptomatic Question of dementia Family notes pt has been increasingly confused over the past year+, worse the past few months Pt with episodes of sundowning while in the hospital HTN BP has been soft, hold amlodipine and atenolol for now Full Code DVT Prophylaxis: Lovenox Pt requires continued hospitalization as hypokalemia has not yet resolved. Pt will also need Care Team assessment before eventual discharge to [facility] Stroke Does the patient have a stroke diagnosis?: No VTE Prior VTE?: No VTE Risk Level:: Medical - moderate - high VTE Device Contraindication: Treatment Not Indicated VTE Drug Contraindication: N/A - Med Ordered
--- NOTE | 2025-07-11 16:26 | MHC.SL.SWA ---
Speech Pathologist Impression: Risk of Aspiration, Moderate Oropharyngeal Dysphagia Dysphasia Diet Status: Downgrade from NDD3 as ordered per MD, to NDD2 Liquid Consistency and Strategies for Safe Swallow: Liquid Intake Recommendation: Thin Solid Food Consistency: Dietary Recommendations: Grnd/Mech Altered (NDD2) Oral Medication Intake: Crushed with Puree Please contact the pharmacy regarding appropriate crushable or liquid drug formulations that are available whenever modified delivery is recommended. Supervision While Eating and Drinking for Safe Swallow: Total Assistance (1:1) Foods to Avoid: [place] tough, dry, or sticky foods Recommendation for Speech: Inpatient Speech Therapy Modified Barium Swallow Study - Inpatient Comment: Patient w/ hx chronic dysphagia, seen by BRUSH HOLDER ASSEMBLER during prior hospitalization and recommended modified diet at discharge in 05/2025. Patient reports he has not been using thickener at home (was advanced to chopped/advanced and thin consistencies at last discharge), but has persistent dysphagia to solids. Sitter was present and reported that she observed patient drinking liquids without any coughing, choking, throat clearing, or any other difficulties. She says he has also been able to swallow soft solids and purees, but has difficulty with solids. For example, yesterday patient attempted to eat grilled cheese, chewed for prolonged time, and spit out a bite because it was too hard to get down. RN is also endorsing patient is having a hard time with solids, but drinking fine. On assessment, patient tolerated small sips thin liquids by cup with no overt s/s of aspiration. Straws were present in all drinks at bedside, and removed, BRUSH HOLDER ASSEMBLER advised patient to avoid using straws as a precaution, to drink from a spoon or from the cup instead, to which patient verbalized understanding. Patient tolerated purees, but when given crackers c/o swallowing sandpaper. Patient needed applesauce in order to soften the crackers for improved swallowing. Recommend DOWNGRADE from CHOPPED/ADVANCED (NDD3) (as ordered per MD) to GROUND/MECH ALTERED (NDD2) solids, well moistened in thick sauces/gravies, continue on THIN liquids, pills CRUSHED in PUREE. Recommend strategies to promote clearance: take small bites, chew food well, moisten w/ sauce/gravy, alternate w/ sips of liquid, small sips by teaspoon or cup, avoid straws, upright 90 degree position during PO intake and at least 30 min afterwards. Patient may need instrumental assessment to further investigate nature of dysphagia. Frequency/Duration: M-F daily while inpatient Date Range for Service Req: Timeline to reassess: Seafood Process Worker Clinican/Clinical Fellow: No Supervisory Statement: I have reviewed and agree with the student/clinical fellow's documentation: N/A Speech Language Pathologist: Sera Hanna M.A., CCC-BR[employer] HOLDER ASSEMBLER
[2025-07-11 17:11] LABS: Anion Gap 13 (12-20); Blood Urea Nitrogen 20 mg/dL (9-16); Calcium 7.9 mg/dL (8.4-10.2); Carbon Dioxide 17 mmol/L (22-29); Chloride 116 mmol/L (96-108); Creatinine Clr Calc Pharmacy 44.0; Estimated Glomerular Filt Rate > 60; Potassium 4.0 mmol/L (3.3-5.1); Sodium 142 mmol/L (135-145)
[2025-07-11 19:33] VITALS: BP 143/66; PULSE 64; RESP 18; TEMP 36.8; O2SAT 96
[2025-07-12 03:21] VITALS: BP 148/68; PULSE 66; RESP 17; TEMP 36.3; O2SAT 95
[2025-07-12 07:43] VITALS: BP 146/70; PULSE 64; RESP 18; TEMP 36.9; O2SAT 94
[2025-07-12 08:07] LABS: Hematocrit 28.6 % (42.0-52.0); Hemoglobin 9.8 g/dl (14.0-18.0); Mean Corpuscular HGB Conc 34.3 g/dl (31.0-36.0); Mean Corpuscular Hemoglobin 31.5 pg (27.0-33.0); Mean Corpuscular Volume 92.0 fL (80.0-98.0); NRBC Abs Auto 0.000 X10*3/uL (0.0-0.012); NRBC Pct Auto 0.0 /100WBC (0.0-0.2); Platelet Count 268 X10*3/uL (160-400); Red Blood Count 3.11 X10*6/uL (4.60-5.80); White Blood Count 6.5 X10*3/uL (4.8-10.8)
[2025-07-12] MEDS: 0.9 % Sodium Chloride Flush 3 ML SYRINGE IVFLUSH (08:24)
[2025-07-12 08:31] LABS: Blood Urea Nitrogen 18 mg/dL (9-16); Calcium 8.0 mg/dL (8.4-10.2); Creatinine Clr Calc Pharmacy 42.0; Estimated Glomerular Filt Rate > 60
[2025-07-12 09:16] LABS: Anion Gap 12 (12-20); Carbon Dioxide 20 mmol/L (22-29); Chloride 116 mmol/L (96-108); Potassium 3.8 mmol/L (3.3-5.1); Sodium 144 mmol/L (135-145)
--- NOTE | 2025-07-12 11:25 | MHC.CM.PN ---
ALAN KANG HAS AUTH FOR PTS STR CM CALLED PTS DAUGHTER MIGNON, WHO REPORTS SHE WANTS TO CONFIRM IT IS A PRIVATE BECAUSE HE HAD TROUBLE LAST TIME PER [facility] COMMUNICATION, PLAN IS FOR PRIVATE ROOM SHE ALSO QUESTIONS IF PTS LABS ARE GOOD ENOUGH TO DC TODAY. SHE WILL BE IN TO SEE PT AND BRING CLOTHING BEFORE HE GOES TO REHAB BLS TRANSPORT BOOKED WITH [facility] FOR 1230 HOURS
--- NOTE | 2025-07-12 11:33 | P.DS_ITS ---
DS: Providers Provider Date of Service: 07/12/25 Date of admission: 07/07/25 17:36 Date of discharge: 07/12/25 [facility] DS: Diagnosis Discharge Diagnosis (1) Rhabdomyolysis: Status: Acute (2) Acute kidney injury superimposed on CKD: Status: Acute DS: Summary Hospital Course Hospital Course: From admission HPI: Date of Service: 07/07/25 Chief Complaint: Unwitnessed fall at home Pt is an 84-year-old male with a PMH significant for?HTN, HLD who presents to the ED for evaluation after unwitnessed fall at home with prolonged downtime. Pt reports he was at home watching TV last night around 18:00 when he got out of chair to go to the bathroom and slipped on the floor as he was barefoot and not wearing slippers or non-slip socks. States he landed on his right side and didn't fall hard . No headstrike. Pt found himself too tired and weak to pull himself up, and he fell asleep on the floor. Denies LOC. His daughter found him this morning on the floor when she checked on him after he was not picking up his phone. No N/V/D. Had been eating and drinking normally up until then. Was recently in rehab. Currently denies any significant musculoskeletal pain. In the ED pt's labs were significant for creatinine 2.51 (previous 1.42), AST 145, ALT 50, CPK 3086, and serial troponins 65.[address] of head negative for acute intracranial abnormality, but showed global cerebral atrophy. CT of cervical and lumbar spine negative for acute fracture but showing multilevel cervical thoracic spondylosis concerning for DISH or CPPD. CXR negative for acute active pulmonary disease. Pt was treated in the ED with IVF, acetaminiphen, calcium cluconate, and Zosyn. Pt is admitted to the hospital for rhabdomylelitis and JOAN in the setting of unwitnessed fall at home with prolonged downtime. Hospital Course Pt was admitted to the hospital for rhabdomyolysis and JOAN in the setting of mechanical fall at home with prolonged downtime. Pt was resuscitated with IVF to good effect with gradual resolution of both JOAN and rhabdomyolysis. Patient's hospital stay was complicated and prolonged by multiple factors, including hypokalemia on 07/10 and 07 11 which required oral and IV potassium supplementation; acute hypoxic respiratory failure in the setting of parainfluenza type 1 virus; and then pt endorsing vague SI on the morning of 07/11 in the setting of feeling like his family had not been by recently to see him in the hospital. However, contacted family and they noted that pt has been making similar statements for the past 10-15 years. This morning pt denied SI and stated he spoke to his daughter and ?worked everything out? with her, reiterating that he would never do anything to harm himself. Pt was seen and evaluated by Physical therapy who recommended discharge to short-term rehab for strength and conditioning where his length of stay is expected to be less than 30 days. Additional details concerning hospital stay as indicated below. Rhabdomyelitis In the setting of unwitnessed mechanical fall at home with prolonged 12+ hour downtime CPK slowly improving after IVF, 3086-->3369-->2138-->722-->239 IVF stopped 07/11 PT evaluation recommends STR Acute hypoxic respiratory failure in the setting of parainfluenza virus 1 Pt noted to be detoxing into the 80s on RA CXR negative; respiratory panel positive for parainfluenza virus 1 Supportive care, droplet precautions Titrate supplemental O2 >92, wean as tolerated Incentive spirometry Pt should be kept isolated until asymptomatic JOAN on CKD3, resolved Creatinine now resolved after IVF, 2.51-->1.85-->1.39--> 1.20 In the setting of above Hypokalemia, resolved Potassium 2.9 on 07/10 and again on 07/11 Supplemented with p.o. and IV potassium Depression with vague SI Pt endorsed vague SI morning of 07/11, stating he wants to end it all and requests something to take so he will not wake up in the morning Denies any previous suicide attempt Spoke to family who report he has been making similar statements for forever , for at least the last 10-15 years Pt apparently has been depressed about all of his friends and his having already passed; had argument the previous day with his daughter Has not sought outside therapy or treatment; not on antidepressents Was offered to start on sertaline 25mg daily, but he declined This morning denies any SI; reports he got all that out of my system after speaking to his daughter; states he would never hurt himself Consider starting on sertraline if depression continues and pt is agreeable Hypernatremia, resolved Sodium mildly elevation of 149 on 07/10 Normalized after D5 half NS x500cc Trend labs Elevated troponins Flat at 65.4 and 55.6 In the setting of increased demand Pt asymptomatic Question of dementia Family notes pt has been increasingly confused over the past year+, worse the past few months Pt with episodes of sundowning while in the hospital HTN Continue amlodipine and atenolol Full Code DVT Prophylaxis: Lovenox Time Attestation Discharge Coordination Time (in mins): 37 Quality: Safe Use of Opioids Does Pt have an Active Cancer Diagnosis on the Problem List?: No Quality: Stroke Does the patient have a stroke diagnosis?: No Physical Exam Exam: Exam: General: AOx3, no acute distress. Appears weak, frail Resp: CTA bilaterally CVS: S1, S2, RRR GI: +BS, NT, no distention Skin: Warm, dry Muskuloskeletal: Global though symmetric weakness noted; lower extremities 3/5 strength Neuro: Cranial nerves II-XII grossly intact bilaterally. Motor grossly intact bilaterally Extremities: No edema Psych: Appropriate affect. Vital Signs: Vital Signs: Last Vital Signs Temp 98.5 F 07/12/25 07:43 Pulse 64 07/12/25 07:43 Resp 18 07/12/25 07:43 BP 146/70 H 07/12/25 07:43 Pulse Ox 94 07/12/25 07:43 O2 Del Method Nasal Cannula 07/12/25 07:43 O2 Flow Rate 4.0 07/12/25 07:43 BMI result Body Mass Index 26.9 DS: Data Data Completed and Pending Labs on day of discharge: Laboratory Results - last 24 hr 07/11/25 07/12/25 14:58 08:01 WBC 6.5 RBC 3.11 L Hgb 9.8 L Hct 28.6 L MCV 92.0 MCH 31.5 MCHC 34.3 RDW 13.0 Plt Count 268 MPV 9.6 Absolute Nucleated RBC 0.000 Nucleated RBC % (auto) 0.0 Sodium 142 144 Potassium 4.0 D 3.8 Chloride 116 H 116 H Carbon Dioxide 17 L 20 L Anion Gap 13 12 BUN 20 H 18 H Creatinine 1.05 1.10 Estim Creat Clear Calc 44.0 42.0 Estimated GFR > 60 > 60 Random Glucose 126 H 99 Calcium 7.9 L 8.0 L Preliminary micro results at discharge 07/07/25 16:59 Blood Culture - Preliminary Blood - Venous No growth after 48 hours. 07/07/25 16:59 Blood Culture - Preliminary Blood - Venous No growth after 48 hours. Discharge Plan Discharge Anticipated Discharge Date/Time: 07/12/25 11:07 Patient Disposition: Xfer SNF Discharge Diagnosis: JOAN and rhabdomyolysis in the setting of mechanical fall at home Referrals: Sravan Bui [Outside] - 1 Week Oli Grant FNP- [Primary Care Provider, Internal Medicine] - 1 Week Discharge Medications: Continued atenolol 50 mg tablet 50 mg PO DAILY 90 Days Qty: 90 1RF amlodipine 10 mg tablet 10 mg PO DAILY 90 Days Qty: 90 1RF acetaminophen 500 mg Capsule 500 mg PO Q6H PRN (Reason: Pain) PreserVision AREDS-2 250-90-40-1 mg Capsule 1 tab PO DAILY Discharge Orders: Discharge Order (Routine); Ordered 07/12/25 Ordered By: Kody Maldonado Activity on Discharge: As tolerated Stand Alone Forms: Patient Portal Discharge page Print Language: Icelandic Care Plan Goals: See below Health Concerns: JOAN Rhabdomyolysis Hypokalemia Depression Generalized weakness Parainfluenza 1 virus Plan of Treatment: You were admitted to the hospital for acute kidney injury and rhabdomyolysis in the setting of mechanical fall at home with a prolonged downtime. You were resuscitated with IV fluids with resolution of both JOAN and rhabdomyolysis. Hospital stay was complicated by electrolyte abnormalities which were replenished and corrected. Hospital stay was prolonged as you were noted to become hypoxic and tested positive for parainfluenza virus 1, for which you were treated supportively. You were seen and evaluated by Physical therapy who recommended discharge to short-term rehab for strength and conditioning. -- for parainfluenza virus you should remain isolated and with droplet precautions until you are asymptomatic. You will be treated with supportive care. -- for generalized depression, you were offered sertraline 25 mg daily, though you declined this medication. -- you should resume all of your other home medications. Assessment: See discharge summary Patient Instructions: Rhabdomyolysis (DC)
[2025-07-12 12:00] VITALS: BP 133/60; PULSE 60; RESP 18; TEMP 36.9; O2SAT 95
== END 2025-07-12 13:00 | disposition skilled nursing facility (03) | DRG 557 ==
LOC: HO.ED 17:10 → HO.EDOVER 17:38 → HO.S3 07-08 07:19
PROVIDERS: Physician Assistant Medical; Admitting Provider Student in an Organized Health Care Education/Training Program; Emergency Provider Student in an Organized Health Care Education/Training Program; PCP Nurse Practitioner Family; Visit Provider Student in an Organized Health Care Education/Training Program
DX: M62.82 Rhabdomyolysis (principal); J96.01 Acute respiratory failure with hypoxia; N17.9 Acute kidney failure, unspecified; F05 Delirium due to known physiological condition; E87.0 Hyperosmolality and hypernatremia; B97.89 Other viral agents as the cause of diseases classified elsewhere; E87.6 Hypokalemia; F03.90 Unspecified dementia, unspecified severity, without behavioral disturbance, psychotic disturbance, mood disturbance, and anxiety; W19.XXXA Unspecified fall, initial encounter; I12.9 Hypertensive chronic kidney disease with stage 1 through stage 4 chronic kidney disease, or unspecified chronic kidney disease; N18.30 Chronic kidney disease, stage 3 unspecified; Z79.899 Other long term (current) drug therapy
CPT/HCPCS: 36415; 70450; 71045; 72100; 72125; 80048; 80053; 81001; 82550; 83605; 83735; 84484; 85025; 85027; 87040; 87633; 87637; 92610; 93005; 97110; 97162; 97530; 99285; J0131; J0613; J1644; J2543; J3480; J7120

== ENCOUNTER → 2025-07-07 13:09 | Outpatient (BNV) | payer MEDICARE, SELFPAY | PROVIDERS: Emergency Provider Student in an Organized Health Care Education/Training Program; PCP Nurse Practitioner Family; Visit Provider Radiology Diagnostic Radiology | DX: M47.812 Spondylosis without myelopathy or radiculopathy, cervical region (principal); G31.9 Degenerative disease of nervous system, unspecified; R90.82 White matter disease, unspecified; M47.815 Spondylosis without myelopathy or radiculopathy, thoracolumbar region; Z04.3 Encounter for examination and observation following other accident; R05.9 Cough, unspecified; R09.02 Hypoxemia | CPT/HCPCS: 70450; 71045; 72100; 72125 ==

== ENCOUNTER → 2025-07-07 14:10 | Outpatient (BNV) | payer MEDICARE, SELFPAY | PROVIDERS: Admitting Provider Student in an Organized Health Care Education/Training Program; Emergency Provider Student in an Organized Health Care Education/Training Program; PCP Nurse Practitioner Family; Visit Provider Internal Medicine | DX: R00.1 Bradycardia, unspecified (principal); I44.0 Atrioventricular block, first degree; I45.10 Unspecified right bundle-branch block | CPT/HCPCS: 93010 ==

== ENCOUNTER 2025-07-07 17:36 | Outpatient (BNV) | payer MEDICARE, SELFPAY | END 2025-07-09 16:11 | PROVIDERS: Admitting Provider Student in an Organized Health Care Education/Training Program; Emergency Provider Student in an Organized Health Care Education/Training Program; PCP Nurse Practitioner Family; Visit Provider Radiology Diagnostic Radiology | DX: R09.02 Hypoxemia (principal) | CPT/HCPCS: 71045 ==

== ENCOUNTER → 2025-07-07 17:36 | Outpatient (BNV) | payer MEDICARE, SELFPAY | PROVIDERS: Admitting Provider Student in an Organized Health Care Education/Training Program; Emergency Provider Student in an Organized Health Care Education/Training Program; PCP Nurse Practitioner Family; Visit Provider Student in an Organized Health Care Education/Training Program | DX: M62.82 Rhabdomyolysis (principal); N17.9 Acute kidney failure, unspecified; N18.9 Chronic kidney disease, unspecified | CPT/HCPCS: 99223; 99233; 99239 ==

== ENCOUNTER 2025-07-15 06:49 | Outpatient (REF) | payer MEDICARE, SELFPAY ==
--- OUTSIDE RECORDS SUMMARY | 2024-05-23 03:30 | XMS_ITS ---
Author Organization [facility] Address [address] [place] [address] Care Team Providers Care Service Attendant Name Role Phone Oli Bernard Primary Care Provider Unav ailable Leanne Corbin [phone] Encounters Encounter Location Date Provider Diagnosis [facility] [address] [place] [address] 05/23/2024 Leanne Corbin Plan Of Treatment No Information Progress Notes * Raad ANTUNEZ BDOB: [birth year] (84 yo M)Acc No.[id number]:05/23/2024 Progress Note Patient: Raad HERNANDEZ Provider: Kelly Corbin DPM :1940 A ge:83 Y S ex:Male Date:05/23/2024 Address:[address] [facility], [address], [id number] Pcp:PETE Mcclendon Subjective: * Chief Complaints: * [...] DPM Date: Generated for Marijai ike/Farizwanag/eTransmitting on: 09/15/2024 06:51 AM EST
--- OUTSIDE RECORDS SUMMARY | 2025-07-15 06:52 | XMS_ITS | Clinical Summary ---
Author Organization [facility] Address [address] [address] Phone Care Team Providers Care Sales Audit Clerk Name Role Phone Oli Grant TIE KNITTER HELPER Primary Care Provider + Encounters Date Type Department Care Team Description 05/16/2025 Orders Only [facility] [address] [place], [place] [phone] Homehealth, Interface ProviderMD from Last 3 Months [...] file Medical Devices Not on file Insurance [facility] MEDICARE REPLACEMENT MEDICARE REPLACEMENT MEDICARE REPLACEMENT [facility] MEDIC[facility] REPLACEMENT Member Subscriber Plan / Payer (Ef fective 2024-Present) Name:Raad Antunez Relation to Subscriber:Self Name:AntunezRaad Payer ID:[id number] (NAIC) Type:Medicare Address: [place] [id number] [facility] MEDICARE REPLACEMENT Care Teams Sales Audit Clerk Relationship Specialty Start Date End Date Oli Grant NP 1963 [facility] [place] [address] PCP - General Nurse Practitioner 05/16/25 Additional Source Comments The information contained in this document represents components of the legal health record. It is not the complete legal health record.[facility]
--- OUTSIDE RECORDS SUMMARY | 2025-07-15 06:52 | XMS_ITS | Patient Health Record ---
Author Organization [facility] [place] Address [address] [facility] [place] [address] Care Team Providers Care Paving Rammer Name Role Phone Oli Bernard Primary Care Provider Unav ailable Leanne Corbin Unavailable [phone] Allergies No Known Allergies Reason For Referral [...] Ulcer of toe of right foot (disorder) ([id number]) Skin ulcer of toe of right foot, limited to breakdown of skin (L97.511) Active confirmed Nonapplicable Problem Ulcer of toe of left foot (disorder) ([id number]) Skin ulcer of toe of left foot, limited to breakdown of skin (L97.521) Active confirmed Nonapplicable Plan Of Treatment Pending Test Test Name Order Date [id number] Plate 01/18/2024 [id number] Plate Each Additional [id number]- Debride <25 sq cm 02/05/2024 Insurance Providers Payer Name Payer Address Payer Phone Subscriber Number Group Number Insured Name Patient Relationship to Insured Coverage Start Date Coverage End Date [employer] Medicare [id number] [address] [address] [place] [phone] [id number] Raad Antunez Self - patient is the insured Medical (General) History Medical History History ICD Code Arthritis Back pain Hiatal hernia Broken ankle Surgical History Surgery Date(Month/Year) back surgery 2003 appendectomy 1960
[2025-07-15 06:53] LABS: MANUAL DIFF FLAG NO
[2025-07-15 07:14] LABS: Hematocrit 27.6 % (42.0-52.0); Hemoglobin 9.3 g/dl (14.0-18.0); Imm Gran Abs Auto 0.11 X10*3/uL (0.00-0.03); Imm Gran Pct Auto 1.5 % (0.0-0.4); Lymphocytes Absolute Auto 0.8 X10*3/uL (1.2-4.9); Mean Corpuscular HGB Conc 33.7 g/dl (31.0-36.0); Mean Corpuscular Hemoglobin 30.9 pg (27.0-33.0); Mean Corpuscular Volume 91.7 fL (80.0-98.0); NRBC Abs Auto 0.000 X10*3/uL (0.0-0.012); NRBC Pct Auto 0.0 /100WBC (0.0-0.2); Platelet Count 344 X10*3/uL (160-400); Red Blood Count 3.01 X10*6/uL (4.60-5.80); White Blood Count 7.6 X10*3/uL (4.8-10.8)
[2025-07-15 07:38] LABS: Anion Gap 10 (12-20); Blood Urea Nitrogen 22 mg/dL (9-16); Calcium 8.1 mg/dL (8.4-10.2); Carbon Dioxide 23 mmol/L (22-29); Chloride 114 mmol/L (96-108); Estimated Glomerular Filt Rate 56; Potassium 3.6 mmol/L (3.3-5.1); Sodium 143 mmol/L (135-145)
== END 2025-07-15 06:50 | disposition home or self-care (01) ==
LOC: HO.MMNH1L 06:49
PROVIDERS: Visit Provider Physician Assistant Medical
DX: E11.9 Type 2 diabetes mellitus without complications (principal); N40.0 Benign prostatic hyperplasia without lower urinary tract symptoms
CPT/HCPCS: 36415; 80048; 83036; 85025

== ENCOUNTER 2025-07-21 09:13 | Outpatient (REF) | payer MEDICARE, SELFPAY ==
[2025-07-21 07:55] LABS: MANUAL DIFF FLAG NO
[2025-07-21 08:07] LABS: Hematocrit 25.3 % (42.0-52.0); Hemoglobin 8.5 g/dl (14.0-18.0); Imm Gran Abs Auto 0.10 X10*3/uL (0.00-0.03); Imm Gran Pct Auto 0.8 % (0.0-0.4); Lymphocytes Absolute Auto 0.9 X10*3/uL (1.2-4.9); Mean Corpuscular HGB Conc 33.6 g/dl (31.0-36.0); Mean Corpuscular Hemoglobin 31.4 pg (27.0-33.0); Mean Corpuscular Volume 93.4 fL (80.0-98.0); NRBC Abs Auto 0.000 X10*3/uL (0.0-0.012); NRBC Pct Auto 0.0 /100WBC (0.0-0.2); Platelet Count 281 X10*3/uL (160-400); Red Blood Count 2.71 X10*6/uL (4.60-5.80); White Blood Count 12.6 X10*3/uL (4.8-10.8)
[2025-07-21 08:38] LABS: Anion Gap 12 (12-20); Blood Urea Nitrogen 20 mg/dL (9-16); Calcium 7.9 mg/dL (8.4-10.2); Carbon Dioxide 21 mmol/L (22-29); Chloride 112 mmol/L (96-108); Estimated Glomerular Filt Rate 58; Potassium 3.8 mmol/L (3.3-5.1); Sodium 141 mmol/L (135-145)
== END 2025-07-21 09:14 | disposition home or self-care (01) ==
LOC: HO.MMNH1L 09:13
PROVIDERS: Visit Provider Physician Assistant Medical
DX: E11.9 Type 2 diabetes mellitus without complications (principal); N40.0 Benign prostatic hyperplasia without lower urinary tract symptoms
CPT/HCPCS: 36415; 80048; 85025